=== PATIENT | female | born 1960 | race Caucasian/White ===

== ENCOUNTER → 2019-09-16 14:46 | Outpatient (POV) | payer SELFPAY | PROVIDERS: PCP Dermatology; Visit Provider Dermatology | DX: Z00.00 Encounter for general adult medical examination without abnormal findings (principal) ==

== ENCOUNTER 2019-11-25 11:42 | Emergency (ER) | payer BC, SELFPAY ==
[2019-11-25 11:43] VITALS: BP 170/115; PULSE 88; RESP 19; TEMP 36.5; O2SAT 99; BMI 41.5
--- NOTE | 2019-11-25 11:54 | XR_ITS ---
PROCEDURE: XR KNEE RT 3V CLINICAL INDICATION: gave out Pain, knee gives out with lateral pain COMPARISON: KNEE3R KNEE-3 VIEWS-RT from 02/24/2014 KNEE3R KNEE-3 VIEWS-RT from 03/02/2014 FINDINGS: There are moderate osteoarthritic changes of the medial compartment which has progressed compared to the previous exam. There are mild osteoarthritic changes of the lateral compartment and patellofemoral joint which is also progressed. There may be a small suprapatellar effusion. Ununited ossification center noted involving the prominent tibial tuberosity versus an old injury not significantly changed. Other findings:There are some small soft tissue calcifications anteriorly in the prepatellar region IMPRESSION: Moderate osteoarthritic changes which have progressed compared to the previous exam Dictated by: Raymond Fink MD 11/25/2019 12:49 Electronically signed by Raymond Fink MD in [facility] 11/25/2019 12:49
--- NOTE | 2019-11-25 11:58 | PC.NURSE ---
Radiology notified of xrays.
--- NOTE | 2019-11-25 12:29 | PC.NURSE ---
pt to xray
--- NOTE | 2019-11-25 12:55 | PC.NURSE ---
ER MD gave verbal orders for medications on pt.
--- NOTE | 2019-11-25 13:03 | HMH.EDGENADL ---
ED Disposition Clinical Impression: Left lateral knee pain Disposition: Home, Self-Care Condition on Discharge: Good Instructions: DI for Acute Pain -- Adult Additional Instructions: Please ice your knee do not ambulate until you are pain-free and do hamstring stretching. If fail to improve please follow-up with your primary care for possible MRI due to meniscal tear Prescriptions: Nabumetone 750 mg PO BID 10 Days #20 tab Transmission Status: Sent to [facility] Referrals: Joon Sandy [Primary Care Provider] - - Critical Care Critical Care Time: No Attestation: On 11/25/19, the high probability of a clinically significant, sudden or life threatening deterioration of the following system(s) required my full and direct attention, intervention and personal management. The time I documented below is in addition to time spent performing reported procedures but includes the following listed in this critical care notation. Medical Decision Making - Medical Records Medical records reviewed: Yes: I reviewed the patient's medical records. - Mesfin Inquiry Pt receiving controlled substance: No Vital Signs: 11/25/19 11:43 Temperature 97.7 F Temperature Source Oral Pulse Rate [Radial] 88 Respiratory Rate 19 Blood Pressure [Right Arm] 170/115 H Blood Pressure Mean [Right Arm] 133 Blood Pressure Source [Right Arm] Automatic Cuff Blood Pressure Position [Right Arm] Sitting 02 Sat by Pulse Oximetry 99 Oxygen Delivery Method Room Air - Lab Data Lab results reviewed: Yes: I reviewed the patient's lab results. Orders (Tests/Meds): ED MEDICATIONS Discontinued Medications Generic Name Dose Route Start Last Admin Trade Name Freq PRN Reason Stop Dose Admin Ketorolac Tromethamine 60 mg 11/25/19 12:55 Toradol 60mg/2ml Vial IM 11/25/19 12:56 ONCE ONE Methylprednisolone Sodium Succinate 125 mg 11/25/19 12:55 Solu-Medrol 125mg/2ml Vial IM 11/25/19 12:56 ONCE ONE Morphine Sulfate 4 mg 11/25/19 12:57 Morphine 4mg/Ml Syringe IM 11/25/19 12:58 ONCE ONE - Radiology Data #1 Image(s): Knee Preliminary Findings: Normal/NAD General Adult HPI - General Chief complaint: PAIN Stated complaint: knee went out Time Seen by Provider: 11/25/19 13:00 Mode of Arrival: Wheelchair Source of Information: Patient Limitations: No Limitations Description of Symptoms (Recalled from ER Triage Doc. by RN): States her right knee just gave out. - History of Present Illness Onset (ago): hour(s) Location: right, lower extremity Radiation: non-radiation Severity: moderate Severity scale (1-10): 5 Quality: burning, aching Consistency: constant Relieving factors: immobilization Exacerbating factors: movement. negative: none Associated symptoms: denies other symptoms - Related Data Previous Rx's Medication Instructions Recorded Nabumetone 750 mg PO BID 10 Days #20 tab 11/25/19 Allergies Allergy/AdvReac Type Severity Reaction Status Date / Time NO KNOWN ALLERGIES Allergy Uncoded 07/17/17 14:32 [facility] History - Hepatitis A Screen Drug use history?: No High risk sexual behaviors?: No History of sexually transmitted infection?: No Currently employed?: No Childcare worker?: No Do you have indoor plumbing?: Yes Do you have electricity?: Yes Attestation statement:: This patient has been screened for Hepatitis A risk factors. I have reviewed the patient's past medical history: Yes - Social History Educational Level: Completed High School Smoking Status: Former smoker Tobacco Type: cigarettes # Packs/Day (cigarettes): 1 Alcohol Intake: never Occupational Status: employed Housing: house Household Members: spouse, children ROS Obtained: Yes All systems reviewed & no additional complaints - Constitutional Constitutional: Reports system reviewed and no additional complaints, except as docu - Eyes Eyes: Reports system reviewed and no additional com
[2019-11-25 13:27] VITALS: BP 199/101; PULSE 88; RESP 19; TEMP 36.5; O2SAT 99
[2019-11-25 13:31] VITALS: BP 198/101; PULSE 75; RESP 18; TEMP 36.8; O2SAT 96
--- NOTE | 2019-11-25 13:32 | PC.NURSE ---
pt reported she did not need crutches she had a set at home
== END 2019-11-25 13:32 | disposition home or self-care (01) ==
PROVIDERS: Emergency Provider Family Medicine; PCP Internal Medicine
DX: M25.562 Pain in left knee (principal); Z87.891 Personal history of nicotine dependence
CPT/HCPCS: 73562; 96372; 99282

== ENCOUNTER → 2021-07-08 13:04 | Outpatient (CLI) | payer BC, SELFPAY ==
[2021-07-08 15:26] LABS: Alanine Aminotransferase 18 U/L (12-78); Albumin/Globulin Ratio 1.3 (1.1-1.8); Alkaline Phosphatase 98 U/L (38-126); Anion Gap 7.8 mEq/L (5-15); Aspartate Amino Transferase 32 U/L (14-36); Bilirubin,Total 0.5 mg/dl (0.2-1.3); Blood Urea Nitrogen 18 mg/dl (7-17); Calcium 9.1 mg/dl (8.4-10.2); Carbon Dioxide 29 mmol/L (22.0-30.0); Chloride 103 mmol/L (98-107); Chol/HDL Ratio 2.8 (1-3.5); Cholesterol 149 mg/dl (140-200); Estimated Glomerular Filt Rate 72 ml/min (>60); GFR (African American) 88 ML/MIN (>60); Glucose 94 mg/dl (74-100); HDL Cholesterol 53 mg/dl (40-60); Potassium 4.8 mmoL/L (3.5-5.1); Sodium 135 mmol/L (136-145); Triglycerides 133 mg/dl (30-150); VLDL Cholesterol 27 mg/dL (0-40)
[2021-07-08 15:37] LABS: Direct LDL Cholesterol 79.65 mg/dL (100-129)
== END ==
PROVIDERS: Visit Provider Internal Medicine
DX: R55 Syncope and collapse (principal); E78.5 Hyperlipidemia, unspecified; E66.01 Morbid (severe) obesity due to excess calories; N39.0 Urinary tract infection, site not specified
CPT/HCPCS: 80053; 80061; 87086

== ENCOUNTER 2021-08-28 13:28 | Emergency (ER) | payer BC, SELFPAY ==
[2021-08-28 13:41] VITALS: BP 192/88; PULSE 86; RESP 14; TEMP 37.7; O2SAT 95; BMI 43.4
--- NOTE | 2021-08-28 14:09 | HMH.EDUTC ---
[facility] Disposition Clinical Impression: Viral syndrome Disposition: Home, Self-Care Condition on Discharge: Good Instructions: DI for COVID-19 (Suspected or Confirmed ), Preventing the Spread of Coronavirus Discharge Instructions Additional Instructions: Drink plenty of fluids. Take tylenol or ibuprofen for pain or fever. Take the medications as directed. Follow up with your regular doctor. GO TO THE ER FOR ANY WORSENING SYMPTOMS Quarantine until you know the results of your covid-19 test. Notify your school or workplace of your results and follow their instructions regarding return to work/school. Prescriptions: Ondansetron [Zofran 4mg ODT] 4 mg PO Q8HP PRN #20 tab PRN Reason: Nausea Transmission Status: Received by [facility] Referrals: Joon Sandy [Primary Care Provider] - Time of Disposition: 14:29 Medical Decision Making - Medical Records Medical records reviewed: No: I reviewed the patient's medical records. - Mesfin Inquiry Pt receiving controlled substance: No Vital Signs: 08/28/21 13:41 08/28/21 14:40 Temperature 99.9 F H 99.9 F H Temperature Source Oral Pulse Rate 86 Pulse Rate [Left] 86 Respiratory Rate 14 14 Blood Pressure 192/88 H Blood Pressure [Right Arm] 192/88 H Blood Pressure Mean [Right Arm] 122 02 Sat by Pulse Oximetry 95 Orders (Tests/Meds): ORDERS Category Date Time Status Covid-19 Nasal PCR ([facility]) Routine Lab 08/28/21 13:42 Received [facility] HPI - General Stated complaint: covid test/symptoms Time Seen by Provider: 08/28/21 14:09 Mode of Arrival: Ambulatory Source of Information: Patient Limitations: No Limitations Description of Symptoms (Recalled from Triage Doc. by RN): pt c/o a fever and OTERO since this am. pt wants a covid test. HEENT Symptoms (Recalled from RN notes): Yes (OTERO) Resp Symptoms (Recalled from RN notes): No Skin Symptoms (Recalled from RN notes): No MS Symptoms (Recalled from RN notes): No Functional Status (Recalled from RN notes): wnl - History of Present Illness Provider Complaint: She states that she has felt bad since this morning and she would like to be tested for covid-19. - Related Data Previous Rx's Medication Instructions Recorded Nabumetone 750 mg PO BID 10 Days #20 tab 11/25/19 Ondansetron [Zofran 4mg ODT] 4 mg PO Q8HP PRN #20 tab 08/28/21 Allergies Allergy/AdvReac Type Severity Reaction Status Date / Time NO KNOWN ALLERGIES Allergy Uncoded 07/17/17 14:32 - Worker's Comp Is this a Worker's Comp case?: No H History - Hepatitis A Screen Drug use history?: No High risk sexual behaviors?: No History of sexually transmitted infection?: No Currently employed?: No Childcare worker?: No Do you have indoor plumbing?: Yes Do you have electricity?: Yes Attestation statement:: This patient has been screened for Hepatitis A risk factors. I have reviewed the patient's past medical history: Yes - Social History Smoking Status: Former smoker Tobacco Type: cigarettes # Packs/Day (cigarettes): 1 Alcohol Intake: never Occupational Status: employed Housing: house Household Members: spouse, children ROS Obtained: Yes All systems reviewed & no additional complaints - Constitutional Constitutional: Reports as per HPI - Eyes Eyes: Denies eye discharge - ENT Ears, Nose, Mouth, and Throat: Reports as per HPI - Cardiovascular Cardiovascular: Denies chest pain - Respiratory Respiratory: Denies chest congestion, Reports cough, Denies dyspnea, Denies stridor, Denies wheezing Physical Exam - General General appearance: alert, in no apparent distress - Head Head exam: atraumatic, normocephalic, normal inspection - Eye Eye exam: Present: normal appearance, PERRL, EOMI - ENT ENT exam: Present: normal exam, normal oropharynx, mucous membranes moist, TM's normal bilaterally, normal external ear exam - Neck Neck exam: Present: normal inspection, ful
[2021-08-28 14:40] VITALS: BP 192/88; PULSE 86; RESP 14; TEMP 37.7
== END 2021-08-28 14:40 | disposition home or self-care (01) ==
PROVIDERS: Emergency Provider Nurse Practitioner Family; PCP Internal Medicine
DX: U07.1 COVID-19 (principal); B34.9 Viral infection, unspecified; Z87.891 Personal history of nicotine dependence
CPT/HCPCS: 99202; C9803; G0463; U0003; U0005

== ENCOUNTER → 2022-01-06 13:04 | Outpatient (CLI) | payer BC, SELFPAY ==
[2022-01-06 16:49] LABS: Alanine Aminotransferase 23 U/L (12-78); Albumin Level 3.9 g/dl (3.5-5.0); Albumin/Globulin Ratio 1.3 (1.1-1.8); Alkaline Phosphatase 119 U/L (38-126); Anion Gap 13.9 mEq/L (5-15); Aspartate Amino Transferase 31 U/L (14-36); Bilirubin,Total 0.2 mg/dl (0.2-1.3); Blood Urea Nitrogen 21 mg/dl (7-17); Calcium 9.1 mg/dl (8.4-10.2); Carbon Dioxide 30 mmol/L (22.0-30.0); Chloride 100 mmol/L (98-107); Chol/HDL Ratio 3.5 (1-3.5); Cholesterol 183 mg/dl (140-200); Estimated Glomerular Filt Rate 63 ml/min (>60); GFR (African American) 77 ML/MIN (>60); Glucose 100 mg/dl (74-100); HDL Cholesterol 53 mg/dl (40-60); Potassium 4.9 mmoL/L (3.5-5.1); Sodium 139 mmol/L (136-145); Total Protein,Serum 6.9 g/dl (6.3-8.2); Triglycerides 167 mg/dl (30-150); VLDL Cholesterol 33 mg/dL (0-40)
[2022-01-06 17:01] LABS: Direct LDL Cholesterol 95.14 mg/dL (100-129)
== END ==
PROVIDERS: PCP Internal Medicine; Visit Provider Internal Medicine
DX: R03.0 Elevated blood-pressure reading, without diagnosis of hypertension (principal); E78.5 Hyperlipidemia, unspecified; E66.1 Drug-induced obesity
CPT/HCPCS: 80053; 80061

== ENCOUNTER → 2022-06-06 14:22 | Outpatient (CLI) | payer BC, SELFPAY ==
--- NOTE | 2022-06-06 14:25 | MM_ITS ---
PROCEDURE INFORMATION: Exam: Bilateral Screening 3D Mammography Exam date and time: 06/06/2022 2:39 PM Age: 62 years old Clinical indication: Screening examination. No family history of breast cancer. TECHNIQUE: Imaging protocol: Bilateral Screening tomosynthesis and 2D mammography including computer-aided detection (CAD) when performed. COMPARISON: [facility] DIGITAL SCREEN BILATERAL 01/01/2019 9:57 AM - only the right CC and right MLO are provided. [facility] DIGITAL SCREEN BILATERAL 04/20/2021 2:18 PM - these images are corrupted and not used for comparison. If prior mammograms are provided, I am happy to add an addendum. FINDINGS: MAMMOGRAPHY: Breast composition: The breasts are almost entirely fatty. Mass: None. Architectural distortion: None. Calcifications: No suspicious calcifications. Asymmetric density: None. Skin thickening: None. Axillary adenopathy: None. IMPRESSION: Note comments regarding prior mammograms No mammographic evidence of malignancy. Annual screening is recommended unless otherwise clinically indicated. ASSESSMENT: BI-RADS Category 1: Negative
== END ==
PROVIDERS: PCP Internal Medicine; Visit Provider Internal Medicine
DX: Z12.31 Encounter for screening mammogram for malignant neoplasm of breast (principal)
CPT/HCPCS: 77063; 77067

== ENCOUNTER → 2022-07-07 14:08 | Outpatient (CLI) | payer BC, SELFPAY ==
[2022-07-07 15:01] LABS: Basophils # 0.1 K/mm3 (0-0.2); Basophils % 0.6 % (0.1-2.0); Eosinophils # 0.2 K/mm3 (0.0-0.4); Eosinophils % 1.5 % (0.1-12.0); Hematocrit 44.1 % (37.0-47.0); Hemoglobin 14.2 g/dL (12.2-16.2); Lymphocytes # 2.8 K/mm3 (0.7-4.5); Lymphocytes % 23.3 % (10-50); Mean Corpuscular HGB Conc 32.3 g/dL (31.8-35.4); Mean Corpuscular Hemoglobin 29.7 pg (27.0-31.2); Mean Platelet Volume 10.2 fl (7.4-10.4); Monocytes # 0.7 K/mm3 (0.1-1.0); Monocytes % 6.1 % (1.7-9.3); Neutrophils # 8.3 K/mm3 (1.8-7.8); Neutrophils % 68.5 % (37.0-80.0); Platelet Count 501 K/mm3 (142-424); Red Blood Count 4.79 M/mm3 (4.20-5.40); Red Cell Distribution Width 13.1 % (11.5-17.5); White Blood Count 12.1 K/mm3 (4.8-10.8)
[2022-07-07 15:28] LABS: Alanine Aminotransferase 21 U/L (12-78); Albumin Level 4.2 g/dl (3.5-5.0); Albumin/Globulin Ratio 1.4 (1.1-1.8); Alkaline Phosphatase 128 U/L (38-126); Anion Gap 15.1 mEq/L (5-15); Aspartate Amino Transferase 27 U/L (14-36); Bilirubin,Total 0.3 mg/dl (0.2-1.3); Blood Urea Nitrogen 22 mg/dl (7-17); Calcium 9.6 mg/dl (8.4-10.2); Carbon Dioxide 28 mmol/L (22.0-30.0); Chloride 99 mmol/L (98-107); Chol/HDL Ratio 3.2 (1-3.5); Cholesterol 176 mg/dl (140-200); Estimated Glomerular Filt Rate 56 ml/min (>60); GFR (African American) 68 ML/MIN (>60); Globulin 3.1 g/dL (1.3-3.2); Glucose 97 mg/dl (74-100); HDL Cholesterol 55 mg/dl (40-60); Magnesium 1.8 mg/dl (1.6-2.3); Potassium 5.1 mmoL/L (3.5-5.1); Sodium 137 mmol/L (136-145); Total Protein,Serum 7.3 g/dl (6.3-8.2); Triglycerides 127 mg/dl (30-150); VLDL Cholesterol 25 mg/dL (0-40)
[2022-07-07 15:45] LABS: Direct LDL Cholesterol 92.82 mg/dL (100-129)
== END ==
PROVIDERS: PCP Internal Medicine; Visit Provider Internal Medicine
DX: E78.5 Hyperlipidemia, unspecified (principal); R25.2 Cramp and spasm; Z86.2 Personal history of diseases of the blood and blood-forming organs and certain disorders involving the immune mechanism
CPT/HCPCS: 80053; 80061; 83735; 85025

== ENCOUNTER → 2023-01-05 13:25 | Outpatient (CLI) | payer BC, SELFPAY ==
[2023-01-05 16:47] LABS: Alanine Aminotransferase 24 U/L (12-78); Albumin Level 4.1 g/dl (3.5-5.0); Albumin/Globulin Ratio 1.3 (1.1-1.8); Alkaline Phosphatase 100 U/L (38-126); Anion Gap 16.6 mEq/L (5-15); Aspartate Amino Transferase 36 U/L (14-36); Bilirubin,Total 0.5 mg/dl (0.2-1.3); Blood Urea Nitrogen 19 mg/dl (7-17); Carbon Dioxide 33 mmol/L (22.0-30.0); Chloride 97 mmol/L (98-107); Chol/HDL Ratio 3.7 (1-3.5); Cholesterol 209 mg/dl (140-200); Estimated Glomerular Filt Rate 63 ml/min (>60); GFR (African American) 76 ML/MIN (>60); Globulin 3.2 g/dL (1.3-3.2); Glucose 94 mg/dl (74-100); HDL Cholesterol 56 mg/dl (40-60); Potassium 5.6 mmoL/L (3.5-5.1); Sodium 141 mmol/L (136-145); Total Protein,Serum 7.3 g/dl (6.3-8.2); Triglycerides 150 mg/dl (30-150); VLDL Cholesterol 30 mg/dL (0-40)
[2023-01-05 16:58] LABS: Direct LDL Cholesterol 118.29 mg/dL (100-129)
== END ==
PROVIDERS: PCP Internal Medicine; Visit Provider Internal Medicine
DX: E78.5 Hyperlipidemia, unspecified (principal); G47.62 Sleep related leg cramps; R03.0 Elevated blood-pressure reading, without diagnosis of hypertension; L30.9 Dermatitis, unspecified; E66.01 Morbid (severe) obesity due to excess calories
CPT/HCPCS: 80053; 80061

== ENCOUNTER → 2023-04-13 16:28 | Outpatient (CLI) | payer BC, SELFPAY ==
[2023-04-13 16:34] LABS: Microscopic, Urine URINE MICROSCOPIC (MICROSCOPIC)
--- NOTE | 2023-04-13 16:47 | CT_ITS ---
PROCEDURE INFORMATION: Exam: CT Abdomen And Pelvis Without Contrast Exam date and time: 04/13/2023 4:47 PM Age: 63 years old Clinical indication: Abdominal pain; Flank; Left lower quadrant (llq); Additional info: Appendicitis, pancreatitis, diverticulitis TECHNIQUE: Imaging protocol: Computed tomography of the abdomen and pelvis without contrast. Radiation optimization: All CT scans at this facility use at least one of these dose optimization techniques: automated exposure control; mA and/or kV adjustment per patient size (includes targeted exams where dose is matched to clinical indication); or iterative reconstruction. REPORTING DATA: Count of CT and Cardiac NM exams in prior 12 months: This patient has received 0 known CTs and 0 known cardiac nuclear medicine studies in the 12 months prior to the current study. COMPARISON: No relevant prior studies available. FINDINGS: Diaphragm: Small hiatal hernia. Liver: Scattered punctate calcified granulomas throughout the liver. No evidence of significant steatosis. Prominent craniocaudal extension of the caudate lobe (Yahaira's lobe). Gallbladder and bile ducts: Normal. No calcified stones. No ductal dilation. Pancreas: Normal. No ductal dilation. Spleen: Calcified granulomas throughout the spleen. No splenomegaly. Adrenal glands: Normal. No mass. Kidneys and ureters: Mild malrotation of both kidneys with the renal pelves directed anteriorly. No focal lesions, calculi, or hydronephrosis. Stomach and bowel: Extensive submucosal low-density throughout the descending and transverse colon. Diffuse colonic diverticulosis. No dilated bowel loops. The duodenal-jejunal junction is right of midline consistent with mild malrotation. Mild fat stranding and engorgement of the vasa recta adjacent to the entire colon. No free fluid or free air. Appendix: No evidence of appendicitis. Intraperitoneal space: See Stomach and bowel finding. Vasculature: Mild aortoiliac atherosclerotic disease without aneurysm. Lymph nodes: Unremarkable. No enlarged lymph nodes. Urinary bladder: Unremarkable as visualized. Reproductive: Status post hysterectomy. Bones/joints: Mild lumbar spine dextroscoliosis. Moderate lumbar spine facet arthropathy with grade 1 anterolisthesis of L4 over L5. Mild degenerative joint disease of the bilateral hips. Soft tissues: Unremarkable. IMPRESSION: 1. Findings consistent with mild pancolitis with leading differential including Crohn's disease or ulcerative colitis. Less likely consider infectious colitis. 2. Calcified granulomas throughout the liver and spleen.
[2023-04-13 16:50] LABS: Appearance,Urine CLEAR (Clear); Bilirubin,Urine Negative (Negative); Blood, Urine 2+ (Negative); Color,Urine YELLOW (Yellow); Glucose,Urine (UA) Negative (Negative); Ketones,Urine Negative (Negative); Leukocyte Esterase,Urine 2+ (Negative); Nitrate,Urine Negative (Negative); Protein,Urine TRACE (Negative); Specific Gravity, Urine >= 1.030 (1.005-1.030); Urobilinogen,Urine 0.2 EU/dl (0.2)
[2023-04-13 16:51] LABS: Basophils # 0.1 K/mm3 (0-0.2); Basophils % 0.3 % (0.1-2.0); Eosinophils # 0.2 K/mm3 (0.0-0.4); Eosinophils % 0.9 % (0.1-12.0); Hematocrit 47.6 % (37.0-47.0); Lymphocytes # 1.7 K/mm3 (0.7-4.5); Lymphocytes % 8.9 % (10-50); Mean Corpuscular HGB Conc 31.6 g/dL (31.8-35.4); Mean Corpuscular Hemoglobin 29.8 pg (27.0-31.2); Mean Corpuscular Volume 94.2 fl (81-99); Mean Platelet Volume 7.8 fl (7.4-10.4); Monocytes # 0.6 K/mm3 (0.1-1.0); Monocytes % 2.9 % (1.7-9.3); Neutrophils # 16.7 K/mm3 (1.8-7.8); Neutrophils % 86.9 % (37.0-80.0); Platelet Count 445 K/mm3 (142-424); Red Blood Count 5.06 M/mm3 (4.20-5.40); Red Cell Distribution Width 13.2 % (11.5-17.5); White Blood Count 19.2 K/mm3 (4.8-10.8)
[2023-04-13 16:56] LABS: MANUAL DIFFERENTIAL MANUAL DIFFERENTIAL (MANUAL DIFF)
[2023-04-13 17:13] LABS: Lymphocytes % 9 % (10-50); Monocytes % 2 % (2-9); Neutrophils % 89 % (42-76); Platelet Estimate Normal; RBC Morphology Normal; Total Cells Counted 100
[2023-04-13 17:18] LABS: Bacteria,Urine 1+ /lpf
== END ==
LOC: RAD 16:30
PROVIDERS: PCP Internal Medicine; Visit Provider Internal Medicine
DX: R10.9 Unspecified abdominal pain (principal)
CPT/HCPCS: 36415; 74176; 81001; 85007; 85025; 87086

== ENCOUNTER → 2023-07-06 12:21 | Outpatient (CLI) | payer BC, SELFPAY ==
[2023-07-06 13:20] LABS: Basophils % 0.3 % (0.1-2.0); Eosinophils # 0.1 K/mm3 (0.0-0.4); Eosinophils % 1.3 % (0.1-12.0); Hematocrit 45.1 % (37.0-47.0); Lymphocytes # 2.8 K/mm3 (0.7-4.5); Lymphocytes % 27.6 % (10-50); Mean Corpuscular HGB Conc 33.3 g/dL (31.8-35.4); Mean Corpuscular Hemoglobin 31.1 pg (27.0-31.2); Mean Corpuscular Volume 93.4 fl (81-99); Mean Platelet Volume 8.5 fl (7.4-10.4); Monocytes # 0.6 K/mm3 (0.1-1.0); Monocytes % 5.5 % (1.7-9.3); Neutrophils # 6.5 K/mm3 (1.8-7.8); Neutrophils % 65.3 % (37.0-80.0); Platelet Count 464 K/mm3 (142-424); Red Blood Count 4.83 M/mm3 (4.20-5.40); Red Cell Distribution Width 13.3 % (11.5-17.5)
[2023-07-06 13:46] LABS: Alanine Aminotransferase 27 U/L (12-78); Albumin Level 4.1 g/dl (3.5-5.0); Albumin/Globulin Ratio 1.3 (1.1-1.8); Alkaline Phosphatase 93 U/L (38-126); Anion Gap 9.9 mEq/L (5-15); Aspartate Amino Transferase 35 U/L (14-36); Bilirubin,Total 0.4 mg/dl (0.2-1.3); Blood Urea Nitrogen 13 mg/dl (7-17); Calcium 9.1 mg/dl (8.4-10.2); Carbon Dioxide 31 mmol/L (22.0-30.0); Chloride 100 mmol/L (98-107); Chol/HDL Ratio 3.2 (1-3.5); Cholesterol 199 mg/dl (140-200); Estimated Glomerular Filt Rate 63 ml/min (>60); GFR (African American) 76 ML/MIN (>60); Globulin 3.2 g/dL (1.3-3.2); Glucose 99 mg/dl (74-100); HDL Cholesterol 62 mg/dl (40-60); Potassium 4.9 mmoL/L (3.5-5.1); Sodium 136 mmol/L (136-145); Total Protein,Serum 7.3 g/dl (6.3-8.2); Triglycerides 182 mg/dl (30-150); VLDL Cholesterol 36 mg/dL (0-40)
[2023-07-06 13:57] LABS: Direct LDL Cholesterol 107.24 mg/dL (100-129)
== END ==
LOC: LAB.DROPOF 12:22
PROVIDERS: PCP Internal Medicine; Visit Provider Internal Medicine
DX: E78.5 Hyperlipidemia, unspecified (principal); Z86.2 Personal history of diseases of the blood and blood-forming organs and certain disorders involving the immune mechanism; G47.62 Sleep related leg cramps; L30.9 Dermatitis, unspecified
CPT/HCPCS: 80053; 80061; 85025

== ENCOUNTER 2024-06-25 13:34 | Outpatient (CLI) | payer MEDICARE, SELFPAY ==
--- NOTE | 2024-06-25 13:44 | XR_ITS ---
FINAL REPORT CLINICAL HISTORY: Diffuse abdominal pain COMPARISON: None FINDINGS: A PA view of the chest was obtained. The cardiac and mediastinal silhouettes are within normal limits. The lungs are clear. There is no free air beneath the diaphragm. Upright and supine views of the abdomen reveal no free air. There is a nonspecific bowel gas pattern. There is no evidence of small bowel obstruction. There is a moderate amount of retained stool. There are no pathologic calcifications. No acute osseous abnormalities identified. IMPRESSION: Moderate stool, otherwise nonspecific bowel gas pattern. Reviewed, Interpreted and Dictated by Micaela Mendoza MD Transcribed by Reyna Law Authenticated and [facility]
[2024-06-25 14:02] LABS: Chloride 102 mmol/L (98-107)
[2024-06-25 14:03] LABS: Potassium 4.5 mmoL/L (3.5-5.1); Sodium 137 mmol/L (136-145)
[2024-06-25 14:05] LABS: Alanine Aminotransferase 32 U/L (12-78); Albumin/Globulin Ratio 1.3 (1.1-1.8); Alkaline Phosphatase 101 U/L (38-126); Amylase 48 U/L (30-110); Anion Gap 8.5 mEq/L (5-15); Aspartate Amino Transferase 37 U/L (14-36); Bilirubin,Total 0.9 mg/dl (0.2-1.3); Blood Urea Nitrogen 11 mg/dl (7-17); Carbon Dioxide 31 mmol/L (22.0-30.0); Estimated Glomerular Filt Rate 55 ml/min (>60); GFR (African American) 67 ML/MIN (>60); Globulin 3.2 g/dL (1.3-3.2); Glucose 112 mg/dl (74-100); Total Protein,Serum 7.2 g/dl (6.3-8.2)
[2024-06-25 14:06] LABS: Basophils # 0.1 K/mm3 (0-0.2); Basophils % 0.5 % (0.1-2.0); Calcium 9.3 mg/dl (8.4-10.2); Eosinophils # 0.1 K/mm3 (0.0-0.4); Eosinophils % 0.3 % (0.1-12.0); Hematocrit 44.3 % (37.0-47.0); Hemoglobin 15.1 g/dL (12.2-16.2); Lymphocytes # 2.5 K/mm3 (0.7-4.5); Lymphocytes % 13.9 % (10-50); Mean Corpuscular HGB Conc 34.1 g/dL (31.8-35.4); Mean Corpuscular Hemoglobin 31.1 pg (27.0-31.2); Mean Corpuscular Volume 91.4 fl (81-99); Mean Platelet Volume 7.4 fl (7.4-10.4); Monocytes % 5.7 % (1.7-9.3); Neutrophils # 14.1 K/mm3 (1.8-7.8); Neutrophils % 79.7 % (37.0-80.0); Platelet Count 458 K/mm3 (142-424); Red Blood Count 4.85 M/mm3 (4.20-5.40); Red Cell Distribution Width 13.4 % (11.5-17.5); White Blood Count 17.7 K/mm3 (4.8-10.8)
[2024-06-25 14:19] LABS: MANUAL DIFFERENTIAL MANUAL DIFFERENTIAL (MANUAL DIFF)
[2024-06-25 14:52] LABS: Lymphocytes % 14 % (10-50); Monocytes % 8 % (2-9); Neutrophils % 78 % (42-76); Platelet Estimate Slight Increase; RBC Morphology Normal; Total Cells Counted 100
--- NOTE | 2024-06-25 15:03 | CT_ITS ---
PROCEDURE INFORMATION: Exam: CT Abdomen And Pelvis Without Contrast Exam date and time: 06/25/2024 3:03 PM Age: 64 years old Clinical indication: Fever; Additional info: Fever and abdominal pain TECHNIQUE: Imaging protocol: Computed tomography of the abdomen and pelvis without contrast. Radiation optimization: All CT scans at this facility use at least one of these dose optimization techniques: automated exposure control; mA and/or kV adjustment per patient size (includes targeted exams where dose is matched to clinical indication); or iterative reconstruction. COMPARISON: CT ABDOMEN PELVIS WO CON 04/13/2023 4:47 PM FINDINGS: Diaphragm: Small hiatal hernia. Liver: Liver is enlarged measuring 19 cm. Slightly nodular liver contour, concerning for early hepatocellular disease. Correlation with pertinent labs is recommended. Scattered calcified liver granulomas are benign. Gallbladder and biliary ducts: Normal. No calcified stones. No ductal dilation. Pancreas: Normal. No ductal dilation. Spleen: The spleen demonstrates punctate calcifications, consistent with remote granulomatous organism exposure. Adrenal glands: Normal. No mass. Kidneys and ureters: Normal. No hydronephrosis. Stomach and bowel: Diffuse colonic diverticulosis. Mild constipation. There is submucosal fat deposition noted throughout the colon, a finding which has been previously described as the sequela of prior infectious/inflammatory process or increased body fat content. No bowel inflammation or obstruction. Appendix: 1.5 cm distended appendix with severe surrounding inflammation, trace free fluid, and contained extraluminal air foci just distal to the appendiceal tip. A partially calcified appendicolith measuring 7 mm is suggested at the appendiceal tip. No periappendiceal fluid collections. Intraperitoneal space: No free fluid, fluid collections, or pneumoperitoneum. Vasculature: Mild atherosclerosis. Lymph nodes: Prominent periportal lymph nodes measuring up to 2 cm. Urinary bladder: Bladder is decompressed and difficult to evaluate. Reproductive: There has been a hysterectomy. Bones/joints: Moderate multilevel degenerative changes of the spine. Soft tissues: No acute body wall soft tissue findings. Other findings: No aneurysms. IMPRESSION: 1. Severe appendicitis complicated with contained microperforation. No periappendiceal abscess. 2. Prominent periportal lymph nodes measuring up to 2 cm. Most probably reactive from suspected underlying hepatocellular disease. COMMENTS: THIS REPORT CONTAINS FINDINGS THAT MAY BE CRITICAL TO PATIENT CARE. The findings were verbally communicated via telephone conference with RUDDY RAGSDALE at 3:41 PM EST on 06/25/2024. The findings were acknowledged and understood.
== END 2024-06-25 23:59 | disposition home or self-care (01) ==
PROVIDERS: PCP Internal Medicine; Visit Provider Internal Medicine
DX: R10.9 Unspecified abdominal pain (principal)
CPT/HCPCS: 74021; 74176; 80053; 82150; 85007; 85025

== ENCOUNTER 2024-06-25 17:17 | Inpatient (IN) | payer MEDICARE, SELFPAY ==
[2024-06-25] VITALS (17 sets, daily range): BP systolic 109–193; BP diastolic 63–86; PULSE 82–115; RESP 14–18; TEMP 36.2–43; O2SAT 90–97; BMI 44.7
--- NOTE | 2024-06-25 16:22 | EXP.ANES.CKL ---
[facility] Disclaimer: The information contained in this section may have been updated after the patient was seen, as this information can be updated by other users. Medical History (Updated 06/25/24 @ 16:16 by Zofia Moreira RN) Hyperlipidemia Surgical History (Updated 06/25/24 @ 16:17 by Zofia Moreira RN) H/O: hysterectomy Social History (Updated 06/25/24 @ 16:18 by Zofia Moreira RN) Smoking Status: Current every day smoker tobacco type: cigarettes packs per day: 1 second hand exposure: Yes alcohol intake: never substance use type: denies use current occupational status: employed household members: spouse and children housing: house [facility] Anesthesia Checklist Patient Identification Patient Identification: Arm Band Structural Data Admitted From: Home Planned Operative Procedure/s: Laparoscopic Appendectomy Consent for Planned Operative Procedure(s) Verified: Yes Verified Documents: Surgical Consent and History and Physical NPO Status Verified Time NPO: 10:00 (oatmeal) Additional verifications Anesthesia Reactions: No Airway Assessment Mallampati Score:: Class II C-Spine Mobility Assessed: Yes TMJ Mobility Assessed: Yes Dentition: Dentures-good fit (upper dentures removed) Neurological Assessment Level of Consciousness: Awake, Alert and Appropriate Anesthesia Plan Anesthesia Risk discussed: Yes Anesthesia Plan: Verified ASA Class: II (E) Anesthesia Type: General
[2024-06-25] MEDS: RINGERS SOLUTION,LACTATED 3,000 ML 999 ML IR (16:26)
[2024-06-25] MEDS: LIDOCAINE 1% 30ML PF VIAL 30 ML (16:26)
[2024-06-25] MEDS: METRONIDAZ/SOD CHL 500 MG/100 ML PIGGYBACK 100 MG IV (16:40)
[2024-06-25] MEDS: CEFTRIAXONE SODIUM 2 GM in 0.9 % SODIUM CHLORIDE 100 ML IV (16:40)
--- NOTE | 2024-06-25 17:12 | SUR.OPER ---
called supervisor feed house to inform of need of inpatient bed
--- NOTE | 2024-06-25 18:24 | P.HP_ITS ---
HPI HPI HPI: This is a 64-year-old female who presented to her primary care provider earlier today with complaints of a 2+ day history of increasing abdominal pain. Evaluation included a CT scan that revealed changes consistent with perforated appendicitis. Please see HPI forwarded from outpatient primary care evaluation below. Forwarded from outpatient primary care provider evaluation: The patient is a 64-year-old female with past medical history of arthritis of the knees, hypertension, and hyperlipidemia who presents for evaluation of low- grade fever and abdominal pain. The pain started on the evening of 06/23/2024 with low-grade fevers up to 100.5, and crampy upper abdominal and mid abdominal pain. The pain is rather diffuse and hard to isolate. No nausea or vomiting. No change in bowel habits. No melena or hematochezia. No hematuria. No dysu renay or frequency. No cough, sputum production, hemoptysis, or pleurisy. No URI symptoms. No jaundice. Physical exam?HEENT?no jaundice. Throat?clear. Neck?supple without JVD, adenopathy, thyromegaly. Chest?clear. Cardiovascular?regular rate and rhythm without murmurs, rubs, or gallops. Abdomen?soft, bowel sounds intact, some tenderness to palpation in both upper quadrants and mid abdomen. No masses or organomegaly. No rashes. Extremity?no cyanosis, clubbing, or edema. Musculoskeletal?no acute synovitis or effusions. Neurologic?alert. No gross focal deficits. CBC?WBC 17.7. CMP?normal liver enzymes with the exception of AST which is 37, amylase is normal. Acute abdominal series?chest is clear, no free air, nonspecific bowel gas pattern. CT scan of abdomen and pelvis?acute appendicitis with a contained microperforation. PFSH PFSH Disclaimer: The information contained in this section may have been updated after the patient was seen, as this information can be updated by other users. Medical History Arthritis Hyperlipidemia Surgical History H/O: hysterectomy Family History No significant family history Social History Smoking Status: Current every day smoker tobacco type: cigarettes packs per day: 1 second hand exposure: Yes alcohol intake: never substance use type: denies use current occupational status: employed Travel in the last 8 weeks: None household members: spouse and children housing: house Other Medical History Have you received the Flu Vaccine for this season: No Have you received the Pneumonia Vaccine: No Review of Systems Review of Systems Review of systems:: pertinent systems reviewed and negative unless documented below Constitutional Constitutional: Reports system reviewed and no additional complaints, except as documented Eyes Eyes: Reports system reviewed and no additional complaints, except as documented ENT Ears, Nose, Mouth, and Throat: Reports system reviewed and no additional complaints, except as documented *Cardiovascular Cardiovascular: Reports system reviewed and no additional complaints, except as documented *Respiratory Respiratory: Reports system reviewed and no additional complaints, except as documented *Gastrointestinal Gastrointestinal: Reports as per HPI *Genitourinary Genitourinary: Reports system reviewed and no additional complaints, except as documented *Musculoskeletal Musculoskeletal: Reports system reviewed and no additional complaints, except as documented Integumentary/Breasts Skin/Breast: Reports system reviewed and no additional complaints, except as documented *Neurologic Neurologic: Reports system reviewed and no additional complaints, except as documented Psychiatric Psychiatric: Reports system reviewed and no additional complaints, except as documented Endocrine Endocrine: Reports system reviewed and no additional complaints, except as documented Hematologic/Lymphatic Hematologic/Lymphatic: Reports system reviewed and no additional complaints, except as documented Allergic/Immunologic Allergic/Immunologic: Reports system reviewed and no additional complaints, except as documented Meds Home Medications and Allergies Home Medications ?Medication ?Instructions ?Recorded ?Confirmed ?Type atorvastatin 20 mg tablet 20 mg PO DAILY 06/25/24 06/25/24 History New Prescriptions to Start Prescriptions: Allergies Allergy/AdvReac Type Severity Reaction Status Date / Time No Known Allergies Allergy Unverified 06/25/24 13:07 Exam Data for Last 24 hours Vital signs and Labs for Last 24 Hours: Temp Pulse Resp BP Pulse Ox O2 Del Method 97.1 F L 115 H 18 193/86 H 93 L Room Air 06/25/24 16:21 06/25/24 16:21 06/25/24 16:21 06/25/24 16:21 06/25/24 16:21 06/25/24 16:21 I & O for Last 24 hours: Intake & Output 06/23/24 06/24/24 06/25/24 06/26/24 11:59 11:59 11:59 11:59 Weight 237 lb Constitutional Constitutional: no acute distress *Routine HEENT Exam Head: Present normocephalic Eye: Present EOMI ENT: Present mucous membranes moist *Routine Neck Exam Neck: Present full ROM Routine Chest/Breast/Axilla Exam Chest wall: Absent tenderness *Routine Respiratory Exam Respiratory: Absent respiratory distress *Routine Cardiovascular Exam Cardiovascular: Present tachycardia *Routine Abdominal Exam Abdominal: Present soft and tenderness *Routine Rectal Exam Rectal:: deferred *Routine Genitalia Exam Genitalia:: deferred *Routine Extremities Exam Extremities: Present full ROM Routine Back/Spine/Pelvis Exam Back/Spine: Present full ROM *Routine Skin Exam Skin: Absent erythema *Routine Neurological Exam Neurological: Present alert and oriented X3 Routine Psychiatric Exam Psychiatric: Present normal affect Results Results CT scan - abdomen: report reviewed and image reviewed CT scan - pelvis: report reviewed and image reviewed Assessment and Plan *Assessment and plan (1) Acute appendicitis: Status: Acute Qualifiers: Acute appendicitis type: with localized peritonitis Appendicitis gangrene presence: unspecified whether gangrene present Appendicitis perforation presence: with perforation Appendicitis abscess presence: without abscess Qualified Code(s): K35.32 - Acute appendicitis with perforation, localized peritonitis, and gangrene, without abscess Category: Medical Code(s): K35.80 - Unspecified acute appendicitis Plan Laparoscopic appendectomy planned Ongoing IV antibiotics I have discussed the risks and benefits including, but not limited to: Bleeding Infection Damage to surrounding tissue Inherent risks of sedation The patient agrees to proceed.
--- NOTE | 2024-06-25 18:28 | EXP.OP.NOTE ---
Date of procedure: 06/25/24 Pre-op Diagnosis:: Perforated appendicitis Post-op Diagnosis:: Perforated/gangrenous appendicitis Procedure performed:: Laparoscopic appendectomy Surgeon:: Yunior Barnes MD TOPOGRAPHICAL FIELD ASSISTANT:: Dallas Dias Anesthesia: GETA Estimated blood loss (mL): 15 Operative findings:: Severe regional inflammatory changes Mid/distal appendiceal necrosis Distal appendiceal perforation No obvious abscess collection noted Operative note:: After informed consent was obtained the patient was taken to the operating room and placed in the supine position. General anesthesia was induced and her abdomen was prepped and draped in a sterile fashion. After infiltration with local anesthetic an infraumbilical incision was made. A Veress needle was placed in position. The abdomen was insufflated. A 12 mm optical trocar was placed in position. Under direct visualization an additional 5 mm trocar was placed in the suprapubic position and an additional 5 mm trocar was placed in the left lower quadrant. Severe regional inflammatory changes were noted throughout the ileocecal/appendiceal region. The appendix/mesoappendix was essentially encased within surrounding small bowel and distal colon. A combination of careful blunt dissection and suction was utilized to free the appendiceal tip. Gangrenous changes with full-thickness necrosis noted. Perforation of the distal appendix was also noted. Continued dissection bluntly with occasional use of the harmonic device was utilized as the appendix was elevated. Dissection was profoundly tedious secondary to above-stated findings. Attention was then turned to the appendiceal base which was somewhat less encased but still significantly inflamed. Blunt dissection was utilized to create a window in the mesoappendix at the appendiceal base. The appendiceal base was transected utilizing the Endopath 45 stapling device. Continued elevation, blunt dissection, and dissection with harmonic miguel was utilized to free the appendix/mesoappendix from surrounding tissue. 1 small focus of sanguinous ooze along the mesoappendix was controlled with metallic clips. The appendix was placed in a retrieval bag and removed through the infraumbilical trocar site. The entire region was thoroughly irrigated. No sign of injury or active bleeding was noted. No obvious pockets of purulence were noted. Fascia at the infraumbilical trocar site was reapproximated utilizing the Neoclose device. Pneumoperitoneum was released as the remaining trocars were removed. All wounds were irrigated and skin was closed with 4-0 Monocryl in an interrupted mattress fashion to facilitate hemostasis. Dressings were applied and the patient was transferred recovery in stable condition. Condition: stable Disposition: PACU Specimens:: Appendix Complications:: No immediate
--- NOTE | 2024-06-25 18:33 | EXP.ANES.I ---
[facility] Anesthesia Record Part I Anesthesia Record I Intake, IV Amount: 1,800 Hydration: Adequate Estimated blood loss (mL): 10 Urine output (mL): 25 Blood Products used (#): none Blood Pressure: 109/68 SaO2: 94 Pulse Rate: 96 Airway Patency: Patent Respiratory Rate: 16 Temperature: 99.6 F Patient is:: Drowsy and Stable Stable to PACU at:: 18:30
[2024-06-25] MEDS: PIPERACILLIN/TAZO 4.5 GM in 0.9 % SODIUM CHLORIDE 100 ML IV (18:46)
[2024-06-25] MEDS: 0.9 % SODIUM CHLORIDE 1000ML 1,000 ML 125 ML IV (18:47)
[2024-06-25] MEDS: MORPHINE 2MG/ML SYRINGE 2 MG IV (19:09)
[2024-06-25 19:54] LABS: Microscopic,Cath URINE MICROSCOPIC (MICROSCOPIC)
[2024-06-25 19:57] LABS: Appearance,Urine/Cath CLEAR (Clear); Blood, Urine/Cath 2+ (Negative); Color,Urine/Cath YELLOW (Yellow); Glucose,Urine/Cath (UA) Negative (Negative); Ketones,Urine/Cath 1+ (Negative); Leukocyte Esterase,Cath Negative (Negative); Nitrate,Cath POSITIVE (Negative); Protein,Urine/Cath TRACE (Negative); Specific Gravity, Urine/Cath 1.025 (1.005-1.030); Urobilinogen,Cath 0.2 EU/dl (0.2)
[2024-06-25 20:02] LABS: Bilirubin,Cath Negative (Negative)
[2024-06-25 20:12] LABS: Bacteria,Urine/Cath 4+ /lpf; Mucus,Urine/Cath 1+ /lpf
[2024-06-25] MEDS: HYDROCODONE/APAP 5/325 MG TABLET 1 TAB PO (21:54)
[2024-06-25] MEDS: MORPHINE 2MG/ML SYRINGE 1 MG IV (23:55)
[2024-06-26] VITALS (8 sets, daily range): BP systolic 97–131; BP diastolic 42–68; PULSE 70–81; RESP 14–18; TEMP 36.3–37.2; O2SAT 90–94; BMI 46.0
[2024-06-26] MEDS: PIPERACILLIN/TAZO 4.5 GM in 0.9 % SODIUM CHLORIDE 100 ML IV ×5 (00:33→23:41)
[2024-06-26] MEDS: 0.9 % SODIUM CHLORIDE 1000ML 1,000 ML 125 ML IV ×2 (03:58→13:02)
[2024-06-26] MEDS: HYDROCODONE/APAP 5/325 MG TABLET 1 TAB PO (05:50)
--- NOTE | 2024-06-26 06:14 | PC.NURSE ---
Pt A&OX4 and has tolerated 1.5L O2 throughout the shift. Lung sounds clear and bowel sounds active. 3 incisions noted to abdomen with dressings C/D/I. She has complained of abdominal pain 3 times this shift and was medicated per SEP. She has ambulated to the bathroom with standby assist. No complaints at this time, call light withing reach.
[2024-06-26 06:28] LABS: Anion Gap 15.3 mEq/L (5-15); Blood Urea Nitrogen 14 mg/dl (7-17); Calcium 8.1 mg/dl (8.4-10.2); Carbon Dioxide 21 mmol/L (22.0-30.0); Chloride 104 mmol/L (98-107); Creatinine Clearance Estimated 35 mL/min (50-200); Estimated Glomerular Filt Rate 45 ml/min (>60); GFR (African American) 54 ML/MIN (>60); Glucose 206 mg/dl (74-100); Potassium 4.3 mmoL/L (3.5-5.1); Sodium 136 mmol/L (136-145)
[2024-06-26 06:37] LABS: Basophils % 0.1 % (0.1-2.0); Eosinophils # 0.1 K/mm3 (0.0-0.4); Eosinophils % 0.2 % (0.1-12.0); Lymphocytes # 1.5 K/mm3 (0.7-4.5); Lymphocytes % 5.9 % (10-50); Mean Corpuscular HGB Conc 32.9 g/dL (31.8-35.4); Mean Corpuscular Hemoglobin 30.9 pg (27.0-31.2); Mean Corpuscular Volume 93.8 fl (81-99); Mean Platelet Volume 7.5 fl (7.4-10.4); Monocytes # 0.9 K/mm3 (0.1-1.0); Monocytes % 3.6 % (1.7-9.3); Neutrophils # 23.7 K/mm3 (1.8-7.8); Neutrophils % 90.2 % (37.0-80.0); Platelet Count 395 K/mm3 (142-424); Red Blood Count 4.26 M/mm3 (4.20-5.40); Red Cell Distribution Width 13.6 % (11.5-17.5); White Blood Count 26.3 K/mm3 (4.8-10.8)
[2024-06-26 06:51] LABS: MANUAL DIFFERENTIAL MANUAL DIFFERENTIAL (MANUAL DIFF)
[2024-06-26 09:29] LABS: Lymphocytes % 7 % (10-50); Monocytes % 2 % (2-9); Neutrophils % 91 % (42-76); Platelet Estimate Normal; RBC Morphology Normal; Total Cells Counted 100
[2024-06-26 09:30] LABS: Hemoglobin 13.1 g/dL (12.2-16.2)
--- NOTE | 2024-06-26 09:57 | P.PN_ITS ---
Subjective Patient reports: no new complaints Narrative: Postoperative soreness Exam Data for Last 24 hours Vital signs and Labs for Last 24 Hours: Temp Pulse Resp BP Pulse Ox O2 Del Method O2 Flow Rate 97.4 F L 78 14 98/42 L 93 L Room Air 1.5 06/26/24 07:33 06/26/24 07:33 06/26/24 07:33 06/26/24 07:33 06/26/24 07:33 06/26/24 07:33 06/26/24 06:42 Laboratory Results - last 24 hr 06/25/24 16:45: Urine Color Yellow, Urine Appearance Clear, Urine pH 6.0, Ur Specific [place] 1.025, Urine Protein Trace, Urine Glucose (UA) Negative, Urine Ketones 1+, Urine Blood 2+, Urine Nitrate Positive A, Urine Bilirubin Negative, Urine Urobilinogen 0.2, Ur Leukocyte Esterase Negative, Urine RBC 10-20, Urine WBC 3-5, Ur Squamous Epith Cells 5-10, Urine Bacteria 4+ A 06/26/24 05:48: WBC 26.3 H* D, RBC 4.26, Hgb 13.1 D, Hct 40.0, MCV 93.8, MCH 30.9, MCHC 32.9, RDW 13.6, Plt Count 395, MPV 7.5, Neut % (Auto) 90.2 H, Lymph % (Auto) 5.9 L, [place] % (Auto) 3.6, Eos % (Auto) 0.2, Baso % (Auto) 0.1, Neut # (Auto) 23.7 H, Lymph # (Auto) 1.5, [place] # (Auto) 0.9, Eos # (Auto) 0.1, Baso # (Auto) 0.0, Total Counted 100, Neutrophils % (Manual) 91 H, Lymphocytes % (Manual) 7 L, Monocytes % (Manual) 2, Platelet Estimate Normal, RBC Morphology Normal, Sodium 136, Potassium 4.3, Chloride 104, Carbon Dioxide 21 L, Anion Gap 15.3 H, BUN 14 D, Creatinine 1.20 H, Estimated Creat Clear 35, Estimated GFR 45 L, Est GFR ( Amer) 54 L, Glucose 206 H D, Calcium 8.1 L I & O for Last 24 hours: Intake & Output 06/23/24 06/24/24 06/25/2424 11:59 11:59 11:59 11:59 Intake Total 2560 / 2560 Output Total 550 / 550 Balance 2009 Weight 244 lb Constitutional Constitutional: no acute distress *Routine Respiratory Exam Respiratory: Absent respiratory distress *Routine Cardiovascular Exam Cardiovascular: Present RRR and tachycardia *Routine Abdominal Exam Abdominal: Present soft Comments: Dressings in place. No cellulitis. Progress Note: A&P Assessment and plan (1) Gangrenous appendicitis: Status: Acute Assessment and plan: Overall, doing fairly well status post laparoscopic appendectomy Continue IV antibiotics Advance diet Increase ambulation (2) Dehydration: Status: Acute Assessment and plan: 1 L normal saline ordered (3) Leukocytosis: Status: Acute Assessment and plan: Continue IV antibiotics Repeat CBC in a.m. (4) Hypercholesterolemia: Status: Acute Assessment and plan: Continue home medication (5) Hypoxemia: Status: Acute Assessment and plan: Wean O2 as tolerated
[2024-06-26] MEDS: 0.9 % SODIUM CHLORIDE 1000ML 1,000 ML 500 ML IV (10:00)
[2024-06-26] MEDS: MORPHINE 2MG/ML SYRINGE 1 MG IV ×2 (10:00→13:38)
[2024-06-26] MEDS: IBUPROFEN 600 MG TABLET PO (13:39)
--- NOTE | 2024-06-26 16:33 | PC.NURSE ---
AOX4, WEANED FROM O2 TODAY CURRENTLY TOLERATING ROOM AIR. AMBULATED IN HALLWAY MULTIPLE TIMES THIS SHIFT. MEDICATED PER SEP FOR PAIN.
[2024-06-26] MEDS: ATORVASTATIN 20MG TABLET 20 MG PO (20:22)
[2024-06-27] VITALS: BP 115/52; PULSE 72; RESP 16; TEMP 36.7; O2SAT 93
[2024-06-27 04:00] VITALS: BP 127/67; PULSE 75; RESP 16; TEMP 36.7; O2SAT 95; BMI 46.0
[2024-06-27] MEDS: PIPERACILLIN/TAZO 4.5 GM in 0.9 % SODIUM CHLORIDE 100 ML IV (06:22)
[2024-06-27] MEDS: MORPHINE 2MG/ML SYRINGE 1 MG IV (06:22)
[2024-06-27 06:27] LABS: Basophils # 0.1 K/mm3 (0-0.2); Basophils % 0.3 % (0.1-2.0); Eosinophils # 0.1 K/mm3 (0.0-0.4); Eosinophils % 0.7 % (0.1-12.0); Hematocrit 38.4 % (37.0-47.0); Hemoglobin 12.8 g/dL (12.2-16.2); Lymphocytes # 2.4 K/mm3 (0.7-4.5); Lymphocytes % 14.5 % (10-50); Mean Corpuscular HGB Conc 33.3 g/dL (31.8-35.4); Mean Corpuscular Hemoglobin 31.6 pg (27.0-31.2); Mean Corpuscular Volume 94.7 fl (81-99); Mean Platelet Volume 7.8 fl (7.4-10.4); Monocytes # 0.8 K/mm3 (0.1-1.0); Monocytes % 4.7 % (1.7-9.3); Neutrophils # 13.5 K/mm3 (1.8-7.8); Neutrophils % 79.8 % (37.0-80.0); Platelet Count 386 K/mm3 (142-424); Red Blood Count 4.05 M/mm3 (4.20-5.40); Red Cell Distribution Width 13.6 % (11.5-17.5); White Blood Count 16.9 K/mm3 (4.8-10.8)
[2024-06-27 06:29] LABS: MANUAL DIFFERENTIAL MANUAL DIFFERENTIAL (MANUAL DIFF)
[2024-06-27 06:34] LABS: Anion Gap 9.1 mEq/L (5-15); Blood Urea Nitrogen 16 mg/dl (7-17); Carbon Dioxide 26 mmol/L (22.0-30.0); Chloride 108 mmol/L (98-107); Creatinine Clearance Estimated 35 mL/min (50-200); Estimated Glomerular Filt Rate 45 ml/min (>60); GFR (African American) 54 ML/MIN (>60); Glucose 102 mg/dl (74-100); Potassium 4.1 mmoL/L (3.5-5.1); Sodium 139 mmol/L (136-145)
--- NOTE | 2024-06-27 07:23 | EXP.SURG.PN ---
Subjective Patient reports: feels better and flatus Exam Data for Last 24 hours Vital signs and Labs for Last 24 Hours: Temp Pulse Resp BP Pulse Ox O2 Del Method O2 Flow Rate 98.1 F 75 16 127/67 95 Room Air 1.5 06/27/24 04:00 06/27/24 04:00 06/27/24 04:00 06/27/24 04:00 06/27/24 04:00 06/27/24 05:00 06/26/24 08:00 Laboratory Results - last 24 hr 06/26/24 05:48: Hgb 13.1 D, Total Counted 100, Neutrophils % (Manual) 91 H, Lymphocytes % (Manual) 7 L, Monocytes % (Manual) 2, Platelet Estimate Normal, RBC Morphology Normal 06/27/24 05:56: WBC 16.9 H D, RBC 4.05 L, Hgb 12.8, Hct 38.4, MCV 94.7, MCH 31.6 H, MCHC 33.3, RDW 13.6, Plt Count 386, MPV 7.8, Neut % (Auto) 79.8, Lymph % (Auto) 14.5, [place] % (Auto) 4.7, Eos % (Auto) 0.7, Baso % (Auto) 0.3, Neut # (Auto) 13.5 H, Lymph # (Auto) 2.4, [place] # (Auto) 0.8, Eos # (Auto) 0.1, Baso # (Auto) 0.1, Sodium 139, Potassium 4.1, Chloride 108 H, Carbon Dioxide 26, Anion Gap 9.1, BUN 16, Creatinine 1.20 H, Estimated Creat Clear 35, Estimated GFR 45 L, Est GFR ( Amer) 54 L, Glucose 102 H, Calcium 8.0 L I & O for Last 24 hours: Intake & Output 06/24/24 06/25/24 06/26/24 06/27/24 11:59 11:59 11:59 11:59 Intake Total 2560 / 2560 1250 / 1250 Output Total 550 / 550 0 / 0 Balance 2009 1250 / 1250 Weight 244 lb 244 lb 0.016 oz Constitutional Constitutional: no acute distress *Routine Respiratory Exam Respiratory: Absent respiratory distress *Routine Cardiovascular Exam Cardiovascular: Present RRR *Routine Abdominal Exam Abdominal: Present soft Comments: Dressings intact. No cellulitis Progress Note: A&P Assessment and plan (1) Gangrenous appendicitis: Status: Acute Assessment and plan: Overall, doing well status post laparoscopic appendectomy Discharge home with close outpatient follow-up Complete course of antibiotics secondary to gangrenous/perforated nature of appendicitis (2) Dehydration: Status: Resolved (3) Leukocytosis: Status: Resolved (4) Hypercholesterolemia: Status: Chronic (5) Hypoxemia: Status: Resolved
--- NOTE | 2024-06-27 07:25 | P.DS_ITS ---
General Admission date:: 06/25/24 Discharge date: 06/27/24 HPI HPI HPI: This is a 64-year-old female who presented to her primary care provider earlier today with complaints of a 2+ day history of increasing abdominal pain. Evaluation included a CT scan that revealed changes consistent with perforated appendicitis. Please see HPI forwarded from outpatient primary care evaluation below. Forwarded from outpatient primary care provider evaluation: The patient is a 64-year-old female with past medical history of arthritis of the knees, hypertension, and hyperlipidemia who presents for evaluation of low- grade fever and abdominal pain. The pain started on the evening of 06/23/2024 with low-grade fevers up to 100.5, and crampy upper abdominal and mid abdominal pain. The pain is rather diffuse and hard to isolate. No nausea or vomiting. No change in bowel habits. No melena or hematochezia. No hematuria. No dysuria or frequency. No cough, sputum production, hemoptysis, or pleurisy. No URI symptoms. No jaundice. Physical exam?HEENT?no jaundice. Throat?clear. Neck?supple without JVD, adenopathy, thyromegaly. Chest?clear. Cardiovascular?regular rate and rhythm without murmurs, rubs, or gallops. Abdomen?soft, bowel sounds intact, some tenderness to palpation in both upper quadrants and mid abdomen. No masses or organomegaly. No rashes. Extremity?no cyanosis, clubbing, or edema. Musculoskeletal?no acute synovitis or effusions. Neurologic?alert. No gross focal deficits. CBC?WBC 17.7. CMP?normal liver enzymes with the exception of AST which is 37, amylase is normal. Acute abdominal series?chest is clear, no free air, nonspecific bowel gas pattern. CT scan of abdomen and pelvis?acute appendicitis with a contained microperforation. Hospital Course Hospital Course Hospital Course: The patient underwent laparoscopic appendectomy (please see operative report for detail). Postoperatively she progressed well. She was maintained on Zosyn during her hospitalization and remained afebrile. On the morning of postoperative day 2 she was deemed appropriate for discharge with close outpatient follow-up and completion of a course of antibiotics secondary to the gangrenous/perforated nature of her appendix. Condition at discharge: At the time of discharge patient was afebrile with stable and normal vital signs. She was ambulating without difficulty and tolerating a regular diet. Exam Data for Last 24 hours Vital signs and Labs for Last 24 Hours: Temp Pulse Resp BP Pulse Ox O2 Del Method O2 Flow Rate 98.1 F 75 16 127/67 95 Room Air 1.5 06/27/24 04:00 06/27/24 04:00 06/27/24 04:00 06/27/24 04:00 06/27/24 04:00 06/27/24 05:00 06/26/24 08:00 Laboratory Results - last 24 hr 06/26/24 05:48: Hgb 13.1 D, Total Counted 100, Neutrophils % (Manual) 91 H, Lymphocytes % (Manual) 7 L, Monocytes % (Manual) 2, Platelet Estimate Normal, RBC Morphology Normal 06/27/24 05:56: WBC 16.9 H D, RBC 4.05 L, Hgb 12.8, Hct 38.4, MCV 94.7, MCH 31.6 H, MCHC 33.3, RDW 13.6, Plt Count 386, MPV 7.8, Neut % (Auto) 79.8, Lymph % (Auto) 14.5, [place] % (Auto) 4.7, Eos % (Auto) 0.7, Baso % (Auto) 0.3, Neut # (Auto) 13.5 H, Lymph # (Auto) 2.4, [place] # (Auto) 0.8, Eos # (Auto) 0.1, Baso # (Auto) 0.1, Sodium 139, Potassium 4.1, Chloride 108 H, Carbon Dioxide 26, Anion Gap 9.1, BUN 16, Creatinine 1.20 H, Estimated Creat Clear 35, Estimated GFR 45 L , Est GFR ( Amer) 54 L, Glucose 102 H, Calcium 8.0 L I & O for Last 24 hours: Intake & Output 06/24/24 06/25/24 06/26/24 06/27/24 11:59 11:59 11:59 11:59 Intake Total 2560 / 2560 1250 / 1250 Output Total 550 / 550 0 / 0 Balance 2009 1250 / 1250 Weight 244 lb 244 lb 0.016 oz Constitutional Constitutional: no acute distress *Routine HEENT Exam Head: Present normocephalic Eye: Present EOMI ENT: Present mucous membranes moist *Routine Neck Exam Neck: Present full ROM Routine Chest/Breast/Axilla Exam Chest wall: Absent tenderness *Routine Respiratory Exam Respiratory: Absent respiratory distress *Routine Cardiovascular Exam Cardiovascular: Present RRR *Routine Abdominal Exam Abdominal: Present soft *Routine Rectal Exam Patient deferred: visual exam and digital exam *Routine Exam Patient deferred: external exam *Routine Extremities Exam Extremities: Present full ROM Routine Back/Spine/Pelvis Exam Back/Spine: Present full ROM *Routine Skin Exam Skin: Absent erythema *Routine Neurological Exam Neurological: Present alert and oriented X3 Routine Psychiatric Exam Psychiatric: Present normal affect Results Data Completed and Pending Labs on day of discharge: Labs from last 24 hours 06/27/24 06/26/24 05:56 05:48 WBC 16.9 H D RBC 4.05 L Hgb 12.8 13.1 D Hct 38.4 MCV 94.7 MCH 31.6 H MCHC 33.3 RDW 13.6 Plt Count 386 MPV 7.8 Neut % (Auto) 79.8 Lymph % (Auto) 14.5 [place] % (Auto) 4.7 Eos % (Auto) 0.7 Baso % (Auto) 0.3 Neut # (Auto) 13.5 H Lymph # (Auto) 2.4 [place] # (Auto) 0.8 Eos # (Auto) 0.1 Baso # (Auto) 0.1 Total Counted 100 Neutrophils % (Manual) 91 H Lymphocytes % (Manual) 7 L Monocytes % (Manual) 2 Platelet Estimate Normal RBC Morphology Normal Sodium 139 Potassium 4.1 Chloride 108 H Carbon Dioxide 26 Anion Gap 9.1 BUN 16 Creatinine 1.20 H Estimated Creat Clear 35 Estimated GFR 45 L Est GFR ( Amer) 54 L Glucose 102 H Calcium 8.0 L DS: Diagnosis Discharge Diagnosis (1) Gangrenous appendicitis: Status: Acute Code(s): K35.891 - Other acute appendicitis without perforation, with gangrene (2) Dehydration: Status: Resolved Code(s): E86.0 - Dehydration (3) Leukocytosis: Status: Resolved Code(s): D72.829 - Elevated white blood cell count, unspecified (4) Hypercholesterolemia: Status: Chronic Code(s): E78.00 - Pure hypercholesterolemia, unspecified (5) Hypoxemia: Status: Resolved Code(s): R09.02 - Hypoxemia Meds Home Medications and Allergies Home Medications ?Medication ?Instructions ?Recorded ?Confirmed ?Type atorvastatin 20 mg tablet 20 mg PO HS 06/25/24 06/26/24 History losartan 50 mg tablet 50 mg PO DAILY 06/26/24 06/26/24 History amoxicillin 500 mg-potassium 1 tab PO TID #21 tabs 06/27/24 Rx clavulanate 125 mg tablet (Augmentin) hydrocodone 5 mg-acetaminophen 325 1 tab PO Q6H PRN post-op pain #13 06/27/24 Rx mg tablet tabs New Prescriptions to Start Prescriptions: amoxicillin-pot clavulanate [Augmentin] Yunior Barnes hydrocodone-acetaminophen Yunior Barnes Allergies Allergy/AdvReac Type Severity Reaction Status Date / Time No Known Allergies Allergy Unverified 06/25/24 13:07 Discharge Plan Disposition Patient Disposition: Home, Self-Care Discharge Order Discharge Orders: Discharge Order (Routine); Ordered 06/27/24 Ordered By: Yunior Barnes Follow up Plan Follow up with: Yunior Barnes MD [Staff Physician] - 07/02/24 Prescriptions/Medication Reconciliation: New amoxicillin-pot clavulanate [Augmentin] 500-125 mg tablet 1 tab PO TID Qty: 21 0RF hydrocodone-acetaminophen 5-325 mg tablet 1 tab PO Q6H PRN (Reason: post-op pain) Qty: 13 0RF Continued atorvastatin 20 mg tablet 20 mg PO HS Patient Comments: TAKE 1 TABLET BY MOUTH ONCE DAILY losartan 50 mg tablet 50 mg PO DAILY Patient Comments: TAKE 1 TABLET BY MOUTH DAILY Problem Reconciliation Problems Reviewed?: Yes Patient Discharge Instructions ACTIVITY: Ambulate as tolerated and No heavy lifting DIET: advance to your usual diet Patient Instructions: Appendicitis, Surgical Site Infection Print Language: Ukrainian Providers Primary Care Provider: Joon Sandy Admit Provider: Yunior Barnes Attending Provider: Yunior Barnes
[2024-06-27 07:59] VITALS: BP 138/68; PULSE 86; RESP 18; TEMP 36.7; O2SAT 95
--- NOTE | 2024-06-27 08:22 | EXP.ANES.II ---
[facility] Anesthesia Record Part II Anesthesia Record Part II Discharge Time: 19:10 Destination: Medical Surgical Department PACU nurse assessment reviewed?: Yes Patient Condition:: Good Anesthesia Complications:: None Swallowing reflex intact?: Yes Airway Patency: Patent Cyanosis?: No Blood Pressure: 124/76 SaO2: 94 Respiratory Rate: 17 Pulse Rate: 82 Temperature: 97.5 F Mental Status: Alert & Oriented Pain level:: 0 Nausea and/or vomitting:: None Intake, IV Amount: 0 Hydration: Adequate
[2024-06-27 08:23] VITALS: BP 124/76; PULSE 82; RESP 17; TEMP 36.4; O2SAT 94
[2024-06-27 09:24] LABS: Lymphocytes % 19 % (10-50); Monocytes % 2 % (2-9); Neutrophils % 79 % (42-76); Total Cells Counted 100
[2024-06-27 09:25] LABS: Platelet Estimate Normal; RBC Morphology Normal
--- NOTE | 2024-06-30 11:22 | SW/DCPLANNER ---
At the time of dishcarge call patient is currently in the hospital. Darius Freitas
== END 2024-06-27 10:04 | disposition home or self-care (01) | DRG 399 ==
LOC: 2ND 17:19
PROVIDERS: Admitting Provider Surgery; PCP Internal Medicine; Visit Provider Surgery
PROC: 0DTJ4ZZ Resection of Appendix, Percutaneous Endoscopic Approach (ICD-10-PCS; CPT 44970; principal; 2024-06-25 16:00)
DX: K35.32 Acute appendicitis with perforation, localized peritonitis, and gangrene, without abscess (principal); E86.0 Dehydration; D72.829 Elevated white blood cell count, unspecified; E78.00 Pure hypercholesterolemia, unspecified; R09.02 Hypoxemia; F17.210 Nicotine dependence, cigarettes, uncomplicated
CPT/HCPCS: 36415; 74021; 74176; 80048; 80053; 81001; 82150; 85007; 85025; 87086; 88304; J3490; J0696; J1100; J2250; J2270; J2405; J2543; J3010; J7030; J7120

== ENCOUNTER 2024-06-27 17:10 | Inpatient (IN) | payer MEDICARE, SELFPAY ==
[2024-06-27] VITALS (17 sets, daily range): BP systolic 137–195; BP diastolic 64–101; PULSE 76–95; RESP 18; TEMP 36.6–36.7; O2SAT 92–98; BMI 25.8; BMI 44.7
--- NOTE | 2024-06-27 17:18 | ED_ITS ---
<Statement entered by Rambo Avila MD - 06/27/24 23:22> I was consulted by the JAMARCUS, and we discussed the complexity of the problems being addressed. I approved the treatment and management plan for this patient's care in the emergency department, thus performing a substantive portion of the medical decision making. Rambo Avila MD, [facility], [facility] Discharge Plan Disposition Patient Disposition: Admitted Clinical Impressions Clinical Impression: Sepsis without septic shock, Postoperative ileus Discharge ED Provider: Rambo Avila General Adult HPI <HANNAH Molina - Last Filed: 06/27/24 20:42> General Chief complaint: Nausea/Vomiting/Diarrhea Stated complaint: post op 06/25, vomiting Time Seen by Provider: 06/27/24 17:17 History of Present Illness HPI narrative: Patient presents for evaluation of postoperative nausea. Patient had a contained perforation of her appendix with no abscess formation initially and patient was admitted and taken to the operating room on 06/25/2024. She had a normal postoperative course and had a bowel movement on the morning of discharge which was today 06/27/2024. However since discharge patient went home and lay down when she awoke around 1 PM she has had 3 episodes of vomiting since. She has been intolerant of any oral intake since. She denies increase in abdominal pain chest pain shortness of breath fever chills hemoptysis hematochezia melena diarrhea. Related Data Home Medications ?Medication ?Instructions ?Recorded ?Confirmed atorvastatin 20 mg tablet 20 mg PO HS 06/25/24 06/26/24 losartan 50 mg tablet 50 mg PO DAILY 06/26/24 06/26/24 Previous Rx's ?Medication ?Instructions ?Recorded amoxicillin 500 mg-potassium 1 tab PO TID #21 tabs 06/27/24 clavulanate 125 mg tablet (Augmentin) hydrocodone 5 mg-acetaminophen 325 1 tab PO Q6H PRN post-op pain #13 06/27/24 mg tablet tabs Allergies Allergy/AdvReac Type Severity Reaction Status Date / Time No Known Allergies Allergy Unverified 06/25/24 13:07 PFSH <HANNAH Molina - Last Filed: 06/27/24 20:42> PFS Disclaimer: The information contained in this section may have been updated after the patient was seen, as this information can be updated by other users. Medical History Arthritis Hyperlipidemia Surgical History H/O: hysterectomy Family History No significant family history Social History Smoking Status: Former smoker tobacco type: cigarettes packs per day: 1 second hand exposure: Yes alcohol intake: never substance use type: denies use current occupational status: employed household members: spouse and children housing: house Other Medical History Have you received the Flu Vaccine for this season: No Have you received the Pneumonia Vaccine: No <HANNAH Molina - Last Filed: 06/27/24 20:42> ROS Obtained: Yes Systems reviewed as appropriate & no additional complaints except as documented Physical Exam <HANNAH Molina - Last Filed: 06/27/24 20:42> General General appearance: alert and in no apparent distress Respiratory Respiratory exam: Present normal lung sounds bilaterally Cardiovascular Cardiovascular exam: Present regular rate Neurological Exam Neurological exam: Present alert and oriented X3 Medical Decision Making <HANNAH Molina - Last Filed: 06/27/24 20:42> Medical Records Medical records reviewed: Yes I reviewed the patient's medical records. Screening: Per USPSTF and CDC recommendations, given the prevalence of disease in our region, it is our hospital?s policy to screen for HIV and viral Hepatitis for all patients aged 18 and over and those with ongoing risk factors. [place] Inquiry Pt receiving controlled substance: No Vital Signs: 06/27/24 17:11 06/27/24 17:23 06/27/24 17:31 Temperature 98.0 F Temperature Source Oral Pulse Rate 95 H 77 Pulse Rate [Radial] 88 Respiratory Rate 18 Blood Pressure 137/79 157/64 H Blood Pressure [Right Arm] 137/79 Blood Pressure Mean 103 111 Blood Pressure Mean [Right Arm] 98 Blood Pressure Source [Right Arm] Automatic Cuff Blood Pressure Position [Right Arm] Sitting 02 Sat by Pulse Oximetry 96 95 94 L Oxygen Delivery Method Room Air 06/27/24 17:45 06/27/24 18:00 06/27/24 18:15 Temperature Temperature Source Pulse Rate 79 76 80 Pulse Rate [Radial] Respiratory Rate Blood Pressure 147/86 H 145/84 H 164/88 H Blood Pressure [Right Arm] Blood Pressure Mean 106 Blood Pressure Mean [Right Arm] Blood Pressure Source [Right Arm] Blood Pressure Position [Right Arm] 02 Sat by Pulse Oximetry 93 L 93 L 93 L Oxygen Delivery Method 06/27/24 18:31 06/27/24 18:45 06/27/24 19:16 Temperature Temperature Source Pulse Rate 82 78 81 Pulse Rate [Radial] Respiratory Rate Blood Pressure 157/84 H 154/92 H 165/94 H Blood Pressure [Right Arm] Blood Pressure Mean Blood Pressure Mean [Right Arm] Blood Pressure Source [Right Arm] Blood Pressure Position [Right Arm] 02 Sat by Pulse Oximetry 94 L 97 96 Oxygen Delivery Method 06/27/24 19:31 Temperature Temperature Source Pulse Rate 79 Pulse Rate [Radial] Respiratory Rate Blood Pressure 160/94 H Blood Pressure [Right Arm] Blood Pressure Mean Blood Pressure Mean [Right Arm] Blood Pressure Source [Right Arm] Blood Pressure Position [Right Arm] 02 Sat by Pulse Oximetry 95 Oxygen Delivery Method Lab Data Lab results reviewed: Yes I reviewed the patient's lab results. Lab Results 06/27/24 17:23: WBC 22.2 H* D, RBC 4.86, Hgb 15.2 D, Hct 45.7, MCV 94.1, MCH 31.4 H, MCHC 33.4, RDW 13.4, Plt Count 399, MPV 9.1, Neut % (Auto) 87.3 H, Lymph % (Auto) 7.9 L, Coffey % (Auto) 4.7, Eos % (Auto) 0.2, Baso % (Auto) 0.4, Neut # (Auto) 19.4 H, Lymph # (Auto) 1.8, Coffey # (Auto) 1.0, Eos # (Auto) 0.0, Baso # (Auto) 0.1, Total Counted 100, Neutrophils % (Manual) 83 H, Lymphocytes % (Manual) 13, Monocytes % (Manual) 4, Platelet Estimate Normal, RBC Morphology Normal, Sodium 140, Potassium 4.3, Chloride 106, Carbon Dioxide 26, Anion Gap 12.3, BUN 16, Creatinine 1.10 H, Estimated Creat Clear 38, Estimated GFR 50 L, Est GFR ( Amer) 60, Glucose 140 H D, Calcium 8.9, Total Bilirubin 0.8, AST 34, ALT 28, Alkaline Phosphatase 98, Total Protein 7.8, Albumin 4.0, G lobulin 3.8 H, Albumin/Globulin Ratio 1.1, HIV 1&2 Antibody Rapid Nonreactive 06/27/24 17:29: Procalcitonin 1.38 06/27/24 17:23 06/27/24 17:23 Orders (Tests/Meds): ED MEDICATIONS Generic Name Dose Route Start Last Admin Trade Name Freq PRN Reason Stop Dose Admin Enoxaparin Sodium 40 mg 06/28/24 09:00 Enoxaparin 40mg/0.4ml Syringe SUBCUT 07/28/24 08:59 DAILY KATJA Piperacillin Sod/Tazobactam 50 mls @ 100 mls/hr 06/27/24 20:08 Sod 3.375 gm/ Sodium Chloride IV 06/27/24 20:37 ONCE ONE Sodium Chloride 1,000 mls @ 100 mls/hr 06/27/24 20:15 Sod Chlor 0.9% 1000ml Bag IV 07/27/24 20:14 .Q10H KATJA Ondansetron HCl 4 mg 06/27/24 20:07 Ondansetron 4mg/2ml Vial IV 07/27/24 20:06 Q4HP PRN Nausea Sodium Chloride 10 ml 06/27/24 19:00 06/27/24 19:01 Sodium Chloride 0.9% 10ml Syr (Rad Only) IV 07/27/24 18:59 10 ml NEEDED PRN Administration Maintain IV Site Discontinued Medications Generic Name Dose Route Start Last Admin Trade Name Freq PRN Reason Stop Dose Admin Sodium Chloride 1,000 mls @ 999 mls/hr 06/27/24 17:20 06/27/24 17:32 Sod Chlor 0.9% 1000ml Bag IV 06/27/24 18:20 999 mls/hr .Q1H1M ONE Administration Iopamidol 75 ml 06/27/24 19:00 06/27/24 19:01 Iopamidol-370 (76%);100ml Bottle IV 06/27/24 19:01 75 ml ONCE ONE Administration Ondansetron HCl 4 mg 06/27/24 17:20 06/27/24 17:32 Ondansetron 4mg/2ml Vial IV 06/27/24 17:21 4 mg ONCE ONE Administration ORDERS Category Date Time Status CT abdomen pelvis w con Stat Cat Scan 06/27/24 18:47 Completed CBC w/Auto Diff [Complete Blood Count Auto Diff] Stat Lab 06/27/24 17:23 Completed CMP [Comprehensive Metabolic Panel] Stat Lab 06/27/24 17:23 Completed Complete Blood Count Auto Diff AMLAB Lab 06/28/24 06:00 Ordered Complete Blood Count Auto Diff AMLAB Lab 06/29/24 06:00 Ordered Complete Blood Count Auto Diff AMLAB Lab 06/30/24 06:00 Ordered Complete Blood Count Auto Diff AMLAB Lab 07/01/24 06:00 Ordered Complete Blood Count Auto Diff AMLAB Lab 07/02/24 06:00 Ordered Comprehensive Metabolic Panel AMLAB Lab 06/28/24 06:00 Ordered Comprehensive Metabolic Panel AMLAB Lab 06/29/24 06:00 Ordered Comprehensive Metabolic Panel AMLAB Lab 06/30/24 06:00 Ordered Comprehensive Metabolic Panel AMLAB Lab 07/01/24 06:00 Ordered Comprehensive Metabolic Panel AMLAB Lab 07/02/24 06:00 Ordered HIV (1&2) Antibody Rapid Stat Lab 06/27/24 17:23 Completed Hep C Ab with Reflex to RNA Stat Lab 06/27/24 17:23 Received Magnesium AMLAB Lab 06/28/24 06:00 Ordered Magnesium AMLAB Lab 06/29/24 06:00 Ordered Magnesium AMLAB Lab 06/30/24 06:00 Ordered Magnesium AMLAB Lab 07/01/24 06:00 Ordered Magnesium AMLAB Lab 07/02/24 06:00 Ordered Phosphorous AMLAB Lab 06/28/24 06:00 Ordered Phosphorous AMLAB Lab 06/29/24 06:00 Ordered Phosphorous AMLAB Lab 06/30/24 06:00 Ordered Phosphorous AMLAB Lab 07/01/24 06:00 Ordered Phosphorous AMLAB Lab 07/02/24 06:00 Ordered Procalcitonin Stat Lab 06/27/24 17:29 Completed Tissue Perfus/Sepsis Re-Eval Sepsis Re-Evaluation Performed: Yes Date Performed: 06/27/24 Time Performed: 20:09 Medical Decision Narrative: In summary patient is a 64-year-old female who presents to the emergency department for evaluation of tractable nausea. Patient is initially normotensive with a blood pressure 137/79 heart rate of 88 breathing 18 times a minute temperature 98.0 satting at 96% on room air upon arrival. Physical exam reveals an unwell appearing but otherwise well-nourished well-developed 64-year-old female who is in no acute distress. Abdominal exam shows no focal tenderness and her abdomen is soft and appropriately tender postoperatively with no rebound or guarding or rigidity. Bowel sounds are quiescent currently. Differential diagnosis includes postoperative nausea versus worsening infection versus abscess formation versus dehiscence etc. Initial workup will be conducted with hematologic labs CT scan abdomen pelvis. Initial interventions include crystalloid bolus Zofran IV. Initial workup reviewed by me shows her white count is 22.2 thousand which is up from her morning lab of 16.9 with an absolute neutrophil count of 19.4 which is up from 13.5 and the remainder of her hematologic labs being nonactionable. My informal interpretation of her CT scan abdomen pelvis shows worse inflammation in the right lower quadrant but no definitive fluid collection or free air beyond what might be expected from a postop laparoscopy. Distally patient has a area right above the right iliac crest on the coronal view image #[id number] that shows a dilated loop of small bowel to the left and a immediate decompressed small bowel to the on the right. Upon repeat evaluation patient is in tolerant of any p.o. challenge. Given this had interactive discussion with Dr. Dia of general surgery and he agreed that patient likely needs to come in and though this has the appearance of a partial small bowel obstruction is likely reflect ileus but neither way an NG tube was requested and will be placed. I then had an interactive discussion with hospital medicine about patient management and she will be admitted for further evaluation and care. This is Dr. Avila working with [place] on this case and her white blood cell count has risen significantly. It was [address] scan it was severe intraoperatively was gangrenous and had a perforation. There was no evidence of an intra-abdominal abscess both on CT scan and intraoperatively however Dr. Peres did want the patient to be on antibiotics however she has been unable to keep any antibiotics down since being discharged given her nausea and vomiting she also states that she overall just does not feel well. She does have abdominal pain but states that is very difficult to tell if it is worse as she was recently operated on. Therefore I am worried about a worsening intra-abdominal infection and will get a CT scan with contrast for further evaluation and management. Nonetheless she still is feeling very poor after IV fluids and nausea and is currently not able to keep any medications down and likely will need to be admitted for IV antibiotics and that she feels significantly better with a negative CAT scan. <Rambo Avila MD - Last Filed: 06/27/24 18:49> Vital Signs: 06/27/24 17:11 06/27/24 17:23 06/27/24 17:31 Temperature 98.0 F Temperature Source Oral Pulse Rate 95 H 77 Pulse Rate [Radial] 88 Respiratory Rate 18 Blood Pressure 137/79 157/64 H Blood Pressure [Right Arm] 137/79 Blood Pressure Mean 103 111 Blood Pressure Mean [Right Arm] 98 Blood Pressure Source [Right Arm] Automatic Cuff Blood Pressure Position [Right Arm] Sitting 02 Sat by Pulse Oximetry 96 95 94 L Oxygen Delivery Method Room Air 06/27/24 17:45 06/27/24 18:00 06/27/24 18:15 Temperature Temperature Source Pulse Rate 79 76 80 Pulse Rate [Radial] Respiratory Rate Blood Pressure 147/86 H 145/84 H 164/88 H Blood Pressure [Right Arm] Blood Pressure Mean 106 Blood Pressure Mean [Right Arm] Blood Pressure Source [Right Arm] Blood Pressure Position [Right Arm] 02 Sat by Pulse Oximetry 93 L 93 L 93 L Oxygen Delivery Method 06/27/24 18:31 06/27/24 18:45 06/27/24 19:16 Temperature Temperature Source Pulse Rate 82 78 81 Pulse Rate [Radial] Respiratory Rate Blood Pressure 157/84 H 154/92 H 165/94 H Blood Pressure [Right Arm] Blood Pressure Mean Blood Pressure Mean [Right Arm] Blood Pressure Source [Right Arm] Blood Pressure Position [Right Arm] 02 Sat by Pulse Oximetry 94 L 97 96 Oxygen Delivery Method 06/27/24 19:31 Temperature Temperature Source Pulse Rate 79 Pulse Rate [Radial] Respiratory Rate Blood Pressure 160/94 H Blood Pressure [Right Arm] Blood Pressure Mean Blood Pressure Mean [Right Arm] Blood Pressure Source [Right Arm] Blood Pressure Position [Right Arm] 02 Sat by Pulse Oximetry 95 Oxygen Delivery Method Lab Data Lab Results 06/27/24 17:23: WBC 22.2 H* D, RBC 4.86, Hgb 15.2 D, Hct 45.7, MCV 94.1, MCH 31.4 H, MCHC 33.4, RDW 13.4, Plt Count 399, MPV 9.1, Neut % (Auto) 87.3 H, Lymph % (Auto) 7.9 L, Coffey % (Auto) 4.7, Eos % (Auto) 0.2, Baso % (Auto) 0.4, Neut # (Auto) 19.4 H, Lymph # (Auto) 1.8, Coffey # (Auto) 1.0, Eos # (Auto) 0.0, Baso # (Auto) 0.1, Total Counted 100, Neutrophils % (Manual) 83 H, Lymphocytes % (Manual) 13, Monocytes % (Manual) 4, Platelet Estimate Normal, RBC Morphology Normal, Sodium 140, Potassium 4.3, Chloride 106, Carbon Dioxide 26, Anion Gap 12.3, BUN 16, Creatinine 1.10 H, Estimated Creat Clear 38, Estimated GFR 50 L, Est GFR ( Amer) 60, Glucose 140 H D, Calcium 8.9, Total Bilirubin 0.8, AST 34, ALT 28, Alkaline Phosphatase 98, Total Protein 7.8, Albumin 4.0, G lobulin 3.8 H, Albumin/Globulin Ratio 1.1, HIV 1&2 Antibody Rapid Nonreactive 06/27/24 17:29: Procalcitonin 1.38 Orders (Tests/Meds): ED MEDICATIONS Generic Name Dose Route Start Last Admin Trade Name Freq PRN Reason Stop Dose Admin Enoxaparin Sodium 40 mg 06/28/24 09:00 Enoxaparin 40mg/0.4ml Syringe SUBCUT 07/28/24 08:59 DAILY KATJA Piperacillin Sod/Tazobactam 50 mls @ 100 mls/hr 06/27/24 20:08 Sod 3.375 gm/ Sodium Chloride IV 06/27/24 20:37 ONCE ONE Sodium Chloride 1,000 mls @ 100 mls/hr 06/27/24 20:15 Sod Chlor 0.9% 1000ml Bag IV 07/27/24 20:14 .Q10H KATJA Ondansetron HCl 4 mg 06/27/24 20:07 Ondansetron 4mg/2ml Vial IV 07/27/24 20:06 Q4HP PRN Nausea Sodium Chloride 10 ml 06/27/24 19:00 06/27/24 19:01 Sodium Chloride 0.9% 10ml Syr (Rad Only) IV 07/27/24 18:59 10 ml NEEDED PRN Administration Maintain IV Site Discontinued Medications Generic Name Dose Route Start Last Admin Trade Name Neyq PRN Reason Stop Dose Admin Sodium Chloride 1,000 mls @ 999 mls/hr 06/27/24 17:20 06/27/24 17:32 Sod Chlor 0.9% 1000ml Bag IV 06/27/24 18:20 999 mls/hr .Q1H1M ONE Administration Iopamidol 75 ml 06/27/24 19:00 06/27/24 19:01 Iopamidol-370 (76%);100ml Bottle IV 06/27/24 19:01 75 ml ONCE ONE Administration Ondansetron HCl 4 mg 06/27/24 17:20 06/27/24 17:32 Ondansetron 4mg/2ml Vial IV 06/27/24 17:21 4 mg ONCE ONE Administration ORDERS Category Date Time Status CT abdomen pelvis w con Stat Cat Scan 06/27/24 18:47 Completed CBC w/Auto Diff [Complete Blood Count Auto Diff] Stat Lab 06/27/24 17:23 Completed CMP [Comprehensive Metabolic Panel] Stat Lab 06/27/24 17:23 Completed Complete Blood Count Auto Diff AMLAB Lab 06/28/24 06:00 Ordered Complete Blood Count Auto Diff AMLAB Lab 06/29/24 06:00 Ordered Complete Blood Count Auto Diff AMLAB Lab 06/30/24 06:00 Ordered Complete Blood Count Auto Diff AMLAB Lab 07/01/24 06:00 Ordered Complete Blood Count Auto Diff AMLAB Lab 07/02/24 06:00 Ordered Comprehensive Metabolic Panel AMLAB Lab 06/28/24 06:00 Ordered Comprehensive Metabolic Panel AMLAB Lab 06/29/24 06:00 Ordered Comprehensive Metabolic Panel AMLAB Lab 06/30/24 06:00 Ordered Comprehensive Metabolic Panel AMLAB Lab 07/01/24 06:00 Ordered Comprehensive Metabolic Panel AMLAB Lab 07/02/24 06:00 Ordered HIV (1&2) Antibody Rapid Stat Lab 06/27/24 17:23 Completed Hep C Ab with Reflex to RNA Stat Lab 06/27/24 17:23 Received Magnesium AMLAB Lab 06/28/24 06:00 Ordered Magnesium AMLAB Lab 06/29/24 06:00 Ordered Magnesium AMLAB Lab 06/30/24 06:00 Ordered Magnesium AMLAB Lab 07/01/24 06:00 Ordered Magnesium AMLAB Lab 07/02/24 06:00 Ordered Phosphorous AMLAB Lab 06/28/24 06:00 Ordered Phosphorous AMLAB Lab 06/29/24 06:00 Ordered Phosphorous AMLAB Lab 06/30/24 06:00 Ordered Phosphorous AMLAB Lab 07/01/24 06:00 Ordered Phosphorous AMLAB Lab 07/02/24 06:00 Ordered Procalcitonin Stat Lab 06/27/24 17:29 Completed Medical Decision Narrative: In summary patient is a [age, sex] who presents to the emergency department for evaluation of [complaint]. Patient is [hemodynamically stable/unstable] upon arrival, [febrile/afebrile]. [Unremarkable physical exam, nonfocal exam versus focal remarkable exam]. Differential diagnosis includes [DDx]. Initial workup will be conducted with [hematologic labs, imaging, respiratory swab, describe workup]. Initial interventions include [crystalloid bolus, medications, p.o. challenge, etc.] initial workup reviewed by me [hematologic labs are remarkable for... Imaging remarkable for... Urinalysis remarkable for]. Upon repeat evaluation [patient had acceptable resolution of symptoms, had persistent pain for which additional interventions were conducted (describe interventions), tolerated p.o., was ambulatory, etc.]. Given this [patient is appropriate for discharge at this time and will be discharged with a prescription for... The case was discussed with hospital medicine regarding management and they will admit the patient their service for continued evaluation at this time... Etc.] Places where you can increase complexity: I informally interpreted the patient's chest x-ray or CT read and is remarkable for... Documenting what the medical appointment clerk shows with rate and rhythm Consideration of test but deferring. Ex: I considered chest x-ray on this patient however given that they have no oxygen requirement and are clear to auscultation all lung mackay will be deferred. Social determinants of health: Given that patient is undomiciled increases complexity. Given that patient has polysubstance abuse compounds all aspects of care This is Dr. Avila working with [place] on this case and her white blood cell count has risen significantly. It was [address] scan it was severe intraoperatively was gangrenous and had a perforation. There was no evidence of an intra-abdominal abscess both on CT scan and intraoperatively however Dr. Peres did want the patient to be on antibiotics however she has been unable to keep any antibiotics down since being discharged given her nausea and vomiting she also states that she overall just does not feel well. She does have abdominal pain but states that is very difficult to tell if it is worse as she was recently operated on. Therefore I am worried about a worsening intra-abdominal infection and will get a CT scan with contrast for further evaluation and management. Nonetheless she still is feeling very poor after IV fluids and nausea and is currently not able to keep any medications down and likely will need to be admitted for IV antibiotics and that she feels significantly better with a negative CAT scan. Critical Care <HANNAH Molina - Last Filed: 06/27/24 20:42> Critical Care Time Critical Care Time: No
--- OUTSIDE RECORDS SUMMARY | 2024-06-27 17:25 | XMS_ITS | Clinical Summary ---
Author Organization [facility] Address [address] [place] [address] Care Team Providers Care Sales And Marketing Vice President Name Role Phone Joon Sandy MD Primary Care Provider Social History Tobacco Use Types Packs/Day Years Used Date Smoking Tobacco: Never Smokeless Tobacco: Never Sex and Gender Information Value Date Recorded Sex Assigned at Not on file Gender Identity Not on file Sexual Orientation Not on file Last Filed Vital Signs Vital Sign Reading Time Taken Comments Blood Pressure - - Pulse - - Temperature - - Respiratory Rate - - Oxygen Saturation - - Inhaled Oxygen Concentration - - Weight 104.3 kg (230 lb) 04/20/2021 2:41 PM EDT Height 154.9 cm (5' 1 ) 04/20/2021 2:41 PM EDT Body Mass Index 43.46 04/20/2021 2:41 PM EDT Plan of Treatment Not on file Care Teams Sales And Marketing Vice President Relationship Specialty Start Date End Date Joon Sandy MD [address] [address] [address] [place] [address] PCP - General Internal Medicine 01/01/19
--- OUTSIDE RECORDS SUMMARY | 2024-06-27 17:25 | XMS_ITS | Encounter Summary ---
Author Organization [facility] yste Address [address] [place] [address] Care Team Providers Care Lab Asst Name Role Phone Unavailable Primary Care Provider Unavailabl e Encounter Details Date Type Department Care Team (Late st Contact Info) Description 03/13/2014 10:12 AM EDT - 03/13/2014 11:59 PM EDT Hospital Encounter [facility] [address] [address] Murali Dangelo MD [address] [place] [address] Social History Tobacco Use Types Packs/Day Years Used Date Smoking Tobacco: Never Assessed Comments Unknown Sex and Gender Information Value Date Recorded Sex Assigned at Not on file Legal Sex Female 1:43 PM EDT Gender Identity Not on file Sexual Orientation Not on file documented as of this encounter Plan of Treatment Not on file documented as of this encounter Procedures Procedure Name Priority Date/Time Associated Diagnosis Comments CBC AND DIFFERENTIAL Routine 03/13/2014 10:14 AM EDT BASIC METABOLIC PANEL Routine 03/13/2014 10:14 AM EDT documented in this encounter Results * (ABNORMAL) Basic metabolic panel (03/13/2014 10:14 AM EDT) Glucose 88 70 - 100 mg/dL [facility] BUN 15 9 - 23 mg/dL [facility] Creatinine 0.9 0.6 - 1.3 mg/dL [facility] Sodium 139 132 - 146 mmol/L [facility] Potassium 4.5 3.5 - 5.5 mmol/L [facility] Chloride 98(L) 99 - 109 mmol/L [facility] CO2 31 20 - 31 mmol/L [facility] Calcium 10.0 8.7 - 10.4 mg/dL [facility] eGFR 65 ml/min/1.7 32 [facility] Comment: DF by IF @ 03/13/2014 13:03 ?? National Kid[employer] Guidelines ?Stage ? Description ?GFR ?1 ?Normal or High ? 90+ ?2 ?Mild decrease ? 60-89 ?3 ?Moderate decrease ?30-59 ?4 ?Severe decrease ?15-29 ?5 ?Kidney failure ?<15 Anion Gap 10 3 - 11 mmol/L [facility] Blood specimen (specimen) 03/13/2014 10:14 AM EDT Narrative [facility] - 03/13/2014 1:03 PM EDT Specimen Type: Blood us Murali Dangelo MD LAB BLOOD ORDERABLES Final Result [facility] [address] [id number], * (ABNORMAL) CBC and Differential (03/13/2014 10:14 AM EDT) WBC 9.90 3.50 - 10.80 K/mcL [facility] RBC 4.81 3.89 - 5.14 [facility] Hemoglobin 14.7 11.5 - 15.5 g/dL [facility] Hematocrit 43.9 34.5 - 44.0 % [facility] MCV 91.3 80.0 - 99.0 fL [facility] MCH 30.6 27.0 - 31.0 pg [facility] MCHC 33.5 32.0 - 36.0 g/dL [facility] RDW-CV 12.9 11.3 - 14.5 % [facility] Platelets 427 150 - 450 [facility] Neutrophils Absolute 6.07 1.50 - 8.30 [facility] Lymphocytes Absolute 3.20 0.60 - 4.80 [facility] Monocytes Absolute 0.59 0.00 - 1.00 [facility] Eosinophils Absolute 0.00(L) 0.10 - 0.30 [facility] Basophils Absolute 0.02 0.00 - 0.20 [facility] Neutrophil Rel % 61.3 41.0 - 71.0 % [facility] Lymphocyte Rel % 32.3 24.0 - 44.0 % [facility] Monocyte Rel % 6.0 0.0 - 12.0 % [facility] Eosinophil Rel % 0.0 0.0 - 3.0 % [facility] Basophil Rel % 0.2 0.0 - 1.0 % [facility] Immature Granulocyte Rel % 0.2 0.0 - 0.6 % [facility] Blood specimen (specimen) 03/13/2014 10:14 AM EDT Narrative [facility] - 03/13/2014 12:28 PM EDT Specimen Type: Blood Murali Dangelo MD LAB BLOOD ORDERABLES Final Result [facility] [address] [place] [address], documented in this encounter Visit Diagnoses Not on filedocumented in this encounter
--- OUTSIDE RECORDS SUMMARY | 2024-06-27 17:25 | XMS_ITS ---
Author Organization Unknown ALLERGIES AND ADVERSE REACTIONS No information ASSESSMENT No information CHIEF COMPLAINT No information MEDICATIONS No information OBJECTIVE DATA No information PHYSICAL EXAMINATION No information TREATMENT PLAN Planned Care Start Date Provider Encounter for Check-up [id number] [facility] PROBLEMS No information RESULTS No information REVIEW OF SYSTEMS No information SUBJECTIVE DATA No information VITAL SIGNS No information
--- OUTSIDE RECORDS SUMMARY | 2024-06-27 17:25 | XMS_ITS | Encounter Summary ---
Author Organization [facility] Address [address] [place] [address] Care Team Providers Care Infection Control Nurse Name Role Phone Joon Sandy MD Primary Care Provider [phone] Reason for Referral * Other (Routine) - Closed Specialty Diagnoses / Procedures Referred By Cullen simon Referred To Contact Radiology Diagnoses Visit for screening mammogram Procedures ETHEL CELESTINE DIGITAL SCREEN BILATERAL Joon Sandy MD [address] [place] [address] Referral ID Status Reason Start Date Expiration Date Visits Re quested Visits Authorized [id number] Closed 04/19/2021 04/19/2022 1 1 Reason for Visit * Other (Routine) - Closed Specialty Diagnoses / Procedures Referred By Cullen siomn Referred To Contact Radiology Diagnoses Visit for screening mammogram Procedures ETHEL CELESTINE DIGITAL SCREEN BILATERAL Joon Sandy MD [address] [place] [address] Referral ID Status Reason Start Date Expiration Date Visits Re quested Visits Authorized [id number] Closed 04/19/2021 04/19/2022 1 1 Encounter Details Date Type Department Care Team (Latest Contact Info) Description 04/20/2021 2:30 PM EDT - 04/25/2021 11:59 PM EDT Hospital Encounter [facility] Mobile Mammography [address] [facility] [address] [place] [address] Visit for screening mammogram Discharge Disposition: Home or Self Care Social History Tobacco Use Types Packs/Day Years Used Date Smoking Tobacco: Never Smokeless Tobacco: Never Sex and Gender Information Value Date Recorded Sex Assigned at Not on file Gender Identity Not on file Sexual Orientation Not on file documented as of this encounter Last Filed Vital Signs Vital Sign Reading Time Taken Comments Blood Pressure - - Pulse - - Temperature - - Respiratory Rate - - Oxygen Saturation - - Inhaled Oxygen Concentration - - Weight 104.3 kg (230 lb) 04/20/2021 2:41 PM EDT Height 154.9 cm (5' 1 ) 04/20/2021 2:41 PM EDT Body Mass Index 43.46 04/20/2021 2:41 PM EDT documented in this encounter Plan of Treatment Not on file documented as of this encounter Procedures Procedure Name Priority Date/Time Associated Diagnosis Comments ETHEL CELESTINE DIGITAL SCREEN BILATERAL Routine 04/20/2021 2:45 PM EDT Visit for screening mammogram documented in this encounter Results * ETHEL CELESTINE DIGITAL SCREEN BILATERAL (04/20/2021 2:45 PM EDT) Anatomical Region Laterality Modality Bilateral Mammography 04/21/2021 8:20 AM EDT Impressions 04/21/2021 8:23 AM EDT Stable mammogram without evidence for malignancy. RECOMMENDATION: Continued routine clinical and mammographic follow up recommended. BI-RADS: 1 Negative Narrative 04/21/2021 8:23 AM EDT BILATERAL DIGITAL SCREENING MAMMOGRAM WITH CAD DIGITAL BREAST TOMOSYNTHESIS COMPARISON: 01/01/2019 Lifetime breast cancer risk 5.7% LIMITATIONS: NONE FINDINGS: The breasts have scattered areas of fibroglandular density. There are no new masses, areas of architectural distortion, or suspicious clustered microcalcifications. ?? No skin thickening or nipple abnormality identified. No axillary adenopathy seen. Digital breast tomosynthesis was utilized during interpretation. This study was performed and interpreted using Full Field Digital Mammography and Computer Aided Detection. Please note that mammography is not 100% accurate in diagnosing breast cancer. ??A routine breast physical exam is recommended to correlate with mammographic findings. Any palpable abnormality must be assessed clinically. ??If the patient has a new palpable abnormality, then a Diagnostic Mammogram and/or Breast Ultrasound may be indicated. Joon Sandy MD IM[facility] M[facility]MOGRAP[facility] documented in this encounter Visit Diagnoses Diagnosis Visit for screening mammogram Other screening mammogram documented in this encounter Care Teams Infection Control Nurse Relationship Specialty Start Date End Date Joon Sandy MD [address] [place] [address] PCP - General Internal Medicine 01/01/19 documented as of this encounter
--- OUTSIDE RECORDS SUMMARY | 2024-06-27 17:25 | XMS_ITS | Clinical Summary ---
Author Organization [facility] ystem Address [address] [place] [address] Care Team Providers Care Computer Hardware Technician Name Role Phone Unavailable Primary Care Provider Unavailabl e Social History Tobacco Use Types Packs/Day Years Used Date Smoking Tobacco: Never Assessed Abuse Screen Answer Date Recorded Unsafe at Home or Work/School Not on file Feels Threatened by Someone? Not on file 04/2023 Does Anyone Keep You from Co ntacting Others or Doint Things Outside the Home? Not on file 05/08/2023 Physical Sign of Abuse Present Not on file 1 Housing Stability Answer Date Recorded Current Living Arrangements Not on file 04/29 Potentially Unsafe Housing Conditions Not on garo e 05/08/2023 Family and Community Support Answer Billy e Recorded Help with Day-to-Day Activities Not on file 05/08/2023 Lonely or Isolated Not on file 05/08/2023 Employment Answer Date Recorded Do you want help finding or keeping work or a shonda b? Not on file 05/08/2023 Disabilities Answer Date Recorded Concentrating, Remembering, or Making Decisions Difficulty Not on file 05/08/2023 Doing Errands Independently Difficulty Not on fi le 05/08/2023 Education Answer Date Recorded Help with school or training? Not on file Preferred Language Not on file 05/08/2023 Comments Unknown Sex and Gender Information Value Date Recorded Sex Assigned at Not on file Legal Sex Female 1:43 PM EDT Gender Identity Not on file Sexual Orientation Not on file Plan of Treatment Health Maintenance Due Date Last Done Comments ANNUAL PHYSICAL 1960 COLOGUARD 1960 COLON CANCER SCREENING 5 YEAR SIGMOIDOSCOPY 1960 COLONOSCOPY [address] CANCER SCREENING 1958 CT COLONOGRAPHY 1958 DXA SCAN 1960 FECAL OCCULT BLOOD TEST 1958 FIT Testing (1 year) 1958 HEPATITIS C SCREENING 1958 TDAP/TD VACCINES (1 - Tdap) 1977 MAMMOGRAM 1998 ZOSTER VACCINE (1 of 2) 2008 Pneumococcal Vaccine 65+ (1 of 1 - PCV) 2023 INFLUENZA VACCINE 01/28/2024 COVID-19 Vaccine ( - season) 2024
--- OUTSIDE RECORDS SUMMARY | 2024-06-27 17:25 | XMS_ITS | Encounter Summary ---
Author Organization [facility] Address [address] [place] [address] Care Team Providers Care Recording Studio Set Up Worker Name Role Phone Joon Sandy MD Primary Care Provider [phone] Reason for Referral * Other (Routine) - Closed Specialty Diagnoses / Procedures Referred By Cullen simon Referred To Contact Radiology Diagnoses Visit for screening mammogram Procedures ETHEL CELESTINE [place]ITAL [place] [address] [place] [address] Referral ID Status Reason Start Date Expiration Date Visits Re quested Visits Authorized [id number] Closed 01/01/2019 01/01/2020 1 1 Reason for Visit * Other (Routine) - Closed Specialty Diagnoses / Procedures Referred By Cullen simon Referred To Contact Radiology Diagnoses Visit for screening mammogram Procedures ETHEL CELESTINE DIGITAL SCREEN BILATERAL Joon Sandy MD [address] [place] [address] Referral ID Status Reason Start Date Expiration Date Visits Re quested Visits Authorized [id number] Closed 01/01/2019 01/01/2020 1 1 Encounter Details Date Type Department Care Team (Latest Contact Info) Description 01/01/2019 9:43 AM EDT - 01/06/2019 11:59 PM EDT Hospital Encounter [facility] Mobile Mammography [address] [facility] [address] [place], [place] [id number] Visit for screening mammogram Discharge Disposition: Home or Self Care Social History Tobacco Use Types Packs/Day Years Used Date Smoking Tobacco: Never Assessed Sex and Gender Information Value Date Recorded Sex Assigned at Not on file Gender Identity Not on file Sexual Orientation Not on file documented as of this encounter Plan of Treatment Not on file documented as of this encounter Procedures Procedure Name Priority Date/Time Associated Diagnosis Comments ETHEL CELESTINE DIGITAL SCREEN BILATERAL Routine 01/01/2019 9:48 AM EDT Visit for screening mammogram documented in this encounter Results * ETHEL CELESTINE DIGITAL SCREEN BILATERAL (01/01/2019 9:48 AM EDT) Anatomical Region Laterality Modality Bilateral Mammography 01/07/2019 10:4 8 AM EDT Impressions 01/07/2019 10:50 AM EDT No direct or indirect signs of malignancy. ASSESSMENT: BI-RADS 1 Negative RECOMMENDATION: Routine screening 1 year. At the time of her mammogram the patient's lifetime breast cancer risk was calculated to be 6.3%. ??If the patient's lifetime risk is equal to or greater than 18% she will be offered additional counseling by our nurse navigator for possible admission into our high risk clinic. ??Further evaluation by a qualified healthcare professional to determine the appropriateness of genetic testing may be warranted. ??[facility] Nurse Navigator will be the contact for the patient and the patient's physician regarding these genetic testing results. ??The contact number is . Patient was entered into a reminder system for annual screening mammography notification. This study was performed and interpreted using Full Field Digital Mammography and Computer Aided Detection. Please note that mammography is not 100% accurate in diagnosing breast cancer. ??A routine breast exam is recommended to correlate with mammographic findings. Any palpable abnormality must be assessed clinically. ??If the patient has a new palpable abnormality, then a Diagnostic Mammogram and/or Breast Ultrasound is indicated if clinically appropriate. Narrative 01/07/2019 10:50 AM EDT DATE: January 01, 2019 EXAM: ETHEL CELESTINE DIGITAL SCREEN BILATERAL COMPARISON: None INDICATION: Screening FINDINGS: Tomosynthesis: Yes The breast are almost entirely fatty. Limitations of exam: No significant limitations. No direct or indirect signs of malignancy. ??No suspicious focal mass, architectural distortion, or groupings of microcalcifications are seen. Procedure Note Yves Brito MD - 01/07/2019 DATE: January 01, 2019 EXAM: ETHEL CELESTINE DIGITAL SCREEN BILATERAL COMPARISON: None INDICATION: Screening FINDINGS: Tomosynthesis: Yes The breast are almost entirely fatty. Limitations of exam: No significant limitations. No direct or indirect signs of malignancy. No suspicious focal mass,architectural distortion, or groupings of microcalcifications are seen. IMPRESSION: No direct or indirect signs of malignancy. ASSESSMENT: BI-RADS 1 Negative RECOMMENDATION: Routine screening 1 year. At the time of her mammogram the patient's lifetime breast cancer risk wascalculated to be 6.3%. If the patient's lifetime risk is equal to orgreater than 18% she will be offered additional counseling by our nursenavigator for possible admission into our high risk clinic. Further evaluation by a qualified healthcareprofessional to determine the appropriateness of genetic testing may bewarranted. [facility] Nurse Navigator will be the contact forthe patient and the patient's physician regarding these genetic testing results. The contact number is . Patient was entered into a reminder system for annual screeningmammography notification. This study was performed and interpreted using Full Field DigitalMammography and Computer Aided Detection. Please note that mammography is not 100% accurate in diagnosing breastcancer. A routine breast exam is recommended to correlate withmammographic findings. Any palpable abnormality must be assessed clinically. If the patient hasa new palpable abnormality, then a Diagnostic Mammogram and/or BreastUltrasound is indicated if clinically appropriate. Joon Sandy MD IMG MAMMOGRAP[facility] documented in this encounter Visit Diagnoses Diagnosis Visit for screening mammogram Other screening mammogram documented in this encounter Care Teams Recording Studio Set Up Worker Relationship Specialty Start Date End Date Joon Sandy MD [address] [place] [address] PCP - General Internal Medicine 01/01/19 documented as of this encounter
[2024-06-27] MEDS: ONDANSETRON 4MG/2ML VIAL 4 MG IV (17:32)
[2024-06-27] MEDS: 0.9 % SODIUM CHLORIDE 1000ML 1,000 ML 999 ML IV (17:32)
[2024-06-27 17:35] LABS: Chloride 106 mmol/L (98-107)
[2024-06-27 17:36] LABS: Potassium 4.3 mmoL/L (3.5-5.1); Sodium 140 mmol/L (136-145)
[2024-06-27 17:38] LABS: Alanine Aminotransferase 28 U/L (12-78); Anion Gap 12.3 mEq/L (5-15); Aspartate Amino Transferase 34 U/L (14-36); Blood Urea Nitrogen 16 mg/dl (7-17); Carbon Dioxide 26 mmol/L (22.0-30.0); Creatinine Clearance Estimated 38 mL/min (50-200); Estimated Glomerular Filt Rate 50 ml/min (>60); GFR (African American) 60 ML/MIN (>60)
[2024-06-27 17:39] LABS: Albumin/Globulin Ratio 1.1 (1.1-1.8); Alkaline Phosphatase 98 U/L (38-126); Bilirubin,Total 0.8 mg/dl (0.2-1.3); Calcium 8.9 mg/dl (8.4-10.2); Globulin 3.8 g/dL (1.3-3.2); Glucose 140 mg/dl (74-100); Total Protein,Serum 7.8 g/dl (6.3-8.2)
[2024-06-27 18:31] LABS: Basophils # 0.1 K/mm3 (0-0.2); Basophils % 0.4 % (0.1-2.0); Eosinophils % 0.2 % (0.1-12.0); Hematocrit 45.7 % (37.0-47.0); Lymphocytes # 1.8 K/mm3 (0.7-4.5); Lymphocytes % 7.9 % (10-50); Mean Corpuscular HGB Conc 33.4 g/dL (31.8-35.4); Mean Corpuscular Hemoglobin 31.4 pg (27.0-31.2); Mean Corpuscular Volume 94.1 fl (81-99); Mean Platelet Volume 9.1 fl (7.4-10.4); Monocytes % 4.7 % (1.7-9.3); Neutrophils # 19.4 K/mm3 (1.8-7.8); Neutrophils % 87.3 % (37.0-80.0); Platelet Count 399 K/mm3 (142-424); Red Blood Count 4.86 M/mm3 (4.20-5.40); Red Cell Distribution Width 13.4 % (11.5-17.5); White Blood Count 22.2 K/mm3 (4.8-10.8)
[2024-06-27 18:38] LABS: MANUAL DIFFERENTIAL MANUAL DIFFERENTIAL (MANUAL DIFF)
--- NOTE | 2024-06-27 18:47 | CT_ITS ---
PROCEDURE INFORMATION: Exam: CT Abdomen And Pelvis With Contrast Exam date and time: 06/27/2024 7:00 PM Age: 64 years old Clinical indication: Abdominal pain; Prior surgery; Surgery date: Post-operative (0-2 days); Surgery type: Appy; Additional info: Post operative appy 2 days; N/v wbc rising TECHNIQUE: Imaging protocol: Computed tomography of the abdomen and pelvis with contrast. Radiation optimization: All CT scans at this facility use at least one of these dose optimization techniques: automated exposure control; mA and/or kV adjustment per patient size (includes targeted exams where dose is matched to clinical indication); or iterative reconstruction. Contrast material: ISOVUE; Contrast volume: 75 ml; Contrast route: IV; COMPARISON: CT ABDOMEN PELVIS WO CON 06/25/2024 3:03 PM FINDINGS: Lungs: Bibasilar atelectasis . Findings new.Decreased density throughout the liver compatible with hepatic steatosis. Diaphragm: Small hiatal hernia Liver: Nodularity of the hepatic contour compatible with cirrhosis. Gallbladder and biliary ducts: Gallbladder unremarkable Pancreas: Pancreas unremarkable Spleen: The spleen is unremarkable. Splenic granulomas Adrenal glands: Adrenal glands unremarkable. Kidneys and ureters: Normal. No hydronephrosis. Stomach and bowel: Colonic diverticulosis. No evidence of diverticulitis. Appendix: Postoperative changes consistent with history of appendectomy. Intraperitoneal space: The increased regions of mesenteric fat stranding involving the right mid and lower quadrant. Fluid demonstrated in mildly dilated small bowel loops. Transition zone demonstrated in the right lower quadrant at the level of the iliac crest. Small amount of free fluid in the left paracolic gutter as well as in the cul-de-sac. Vasculature: Unremarkable. No abdominal aortic aneurysm. Lymph nodes: Unremarkable. No enlarged lymph nodes. Urinary bladder: Unremarkable as visualized. Reproductive: Unremarkable as visualized. Bones/joints: See Intraperitoneal space finding. Soft tissues: Unremarkable. Other findings: A call has been placed to the referring physician at which time an addended report will be issued. IMPRESSION: 1. Findings compatible with developing small bowel obstruction. Could not exclude mild changes of peritonitis. 2. Small amount of free fluid in the left paracolic gutter as well as in the cul-de-sac. 3. Bibasilar atelectasis compatible with recent operative interve. ntion
[2024-06-27 18:57] LABS: Lymphocytes % 13 % (10-50); Monocytes % 4 % (2-9); Neutrophils % 83 % (42-76); Total Cells Counted 100
[2024-06-27 18:58] LABS: RBC Morphology Normal
[2024-06-27 19:00] LABS: Platelet Estimate Normal
[2024-06-27] MEDS: SODIUM CHLORIDE 0.9% 10ML SYR (RAD ONLY) 10 ML IV (19:01)
[2024-06-27] MEDS: IOPAMIDOL-370 (76%);100ML BOTTLE 75 ML IV (19:01)
[2024-06-27 19:08] LABS: Hemoglobin 15.2 g/dL (12.2-16.2)
[2024-06-27 19:47] LABS: Procalcitonin 1.38 ng/mL (0.0-2.0)
[2024-06-27 20:01] LABS: HIV (1&2) Antibody Rapid NONREACTIVE (NONREACTIVE)
--- NOTE | 2024-06-27 20:09 | XR_ITS ---
PROCEDURE INFORMATION: Exam: XR Chest Exam date and time: 06/27/2024 8:29 PM Age: 64 years old Clinical indication: Other: Post op complications TECHNIQUE: Imaging protocol: Radiologic exam of the chest. Views: 1 view. COMPARISON: CT ABDOMEN PELVIS W CON 06/27/2024 7:00 PM FINDINGS: Lungs: Unremarkable. No consolidation. Pleural spaces: Unremarkable. No pleural effusion. No pneumothorax. Heart/Mediastinum: Unremarkable. No cardiomegaly. Bones/joints: Unremarkable. IMPRESSION: No acute findings.
--- NOTE | 2024-06-27 21:20 | XR_ITS ---
PROCEDURE INFORMATION: Exam: XR Abdomen Exam date and time: 06/27/2024 9:20 PM Age: 64 years old Clinical indication: Device placement; Gi device; Other: Ng tube placement TECHNIQUE: Imaging protocol: Radiologic exam of the abdomen. Views: Frontal supine view of the abdomen. 1 View. COMPARISON: CT ABDOMEN PELVIS W CON 06/27/2024 7:00 PM FINDINGS: Tubes, catheters and devices: NG tube at the GE junction. Gastrointestinal tract: Normal. No bowel dilation. Bones/joints: Unremarkable. IMPRESSION: NG tube at the GE junction.
[2024-06-27] MEDS: PROMETHAZINE HCL 25MG/ML 1ML VIAL 25 MG IV (21:47)
[2024-06-27] MEDS: LIDOCAINE 2% VISCOUS SOL 15ML UDC 10 ML PO (21:53)
[2024-06-27] MEDS: PIPERCILLIN/TAZO 3.375 GM in 0.9 % SODIUM CHLORIDE 50 ML IV (23:56)
[2024-06-27] MEDS: 0.9 % SODIUM CHLORIDE 1000ML 1,000 ML 100 ML IV (23:56)
[2024-06-28] VITALS: BP 157/92; PULSE 72; RESP 16; TEMP 36.7; O2SAT 95
--- NOTE | 2024-06-28 01:07 | P.HP_ITS ---
History of Present Illness *Admission Date: 06/29/24 *Reason for visit:: Postoperative ileus *History of present illness: Admitted on 06/27/2024 Amada Stallings is a 64-year-old female with a medical with medical history significant for hypertension, hyperlipidemia who returns to the ED after nausea/vomiting and inability to tolerate oral intake. She underwent a laparoscopic appendectomy for perforated/gangrenous appendicitis on 06/25/2024. She progressed well during the hospital course, however fortunately has not done well at home after being discharged today. She states she is unable to tolerate oral intake. Denies abdominal pain, fever/chills. Workup in the ED significant for WBC 22.2, CT abdomen/pelvis suggested SBO. Case discussed with ED provider and decision was made to admit patient for postoperative ileus/SBO. [facility] Disclaimer: The information contained in this section may have been updated after the patient was seen, as this information can be updated by other users. Medical History Arthritis Hyperlipidemia Surgical History H/O: hysterectomy Family History No significant family history Social History (Updated 06/27/24 @ 23:32 by Kimber Brumfield RN) Smoking Status: Former smoker tobacco type: cigarettes packs per day: 1 second hand exposure: Yes alcohol intake: never substance use type: denies use current occupational status: employed Travel in the last 8 weeks: None household members: spouse and children housing: house Other Medical History Have you received the Flu Vaccine for this season: No Have you received the Pneumonia Vaccine: No Meds Home Medications and Allergies Home Medications ?Medication ?Instructions ?Recorded ?Confirmed ?Type atorvastatin 20 mg tablet 20 mg PO HS 06/25/24 06/26/24 History losartan 50 mg tablet 50 mg PO DAILY 06/26/24 06/26/24 History amoxicillin 500 mg-potassium 1 tab PO TID #21 tabs 06/27/24 Rx clavulanate 125 mg tablet (Augmentin) hydrocodone 5 mg-acetaminophen 325 1 tab PO Q6H PRN post-op pain #13 06/27/24 Rx mg tablet tabs New Prescriptions to Start Prescriptions: Allergies Allergy/AdvReac Type Severity Reaction Status Date / Time No Known Allergies Allergy Unverified 06/25/24 13:07 Exam Data for Last 24 hours Vital signs and Labs for Last 24 Hours: Temp Pulse Resp BP Pulse Ox O2 Del Method 98.1 F 72 16 157/92 H 95 Room Air 06/28/24 00:00 06/28/24 00:00 06/28/24 00:00 06/28/24 00:00 06/28/24 00:00 06/28/24 00:00 Laboratory Results - last 24 hr 06/27/24 17:23: WBC 22.2 H* D, RBC 4.86, Hgb 15.2 D, Hct 45.7, MCV 94.1, MCH 31.4 H, MCHC 33.4, RDW 13.4, Plt Count 399, MPV 9.1, Neut % (Auto) 87.3 H, Lymph % (Auto) 7.9 L, [place] % (Auto) 4.7, Eos % (Auto) 0.2, Baso % (Auto) 0.4, Neut # (Auto) 19.4 H, Lymph # (Auto) 1.8, [place] # (Auto) 1.0, Eos # (Auto) 0.0, Baso # (Auto) 0.1, Total Counted 100, Neutrophils % (Manual) 83 H, Lymphocytes % (Manual) 13, Monocytes % (Manual) 4, Platelet Estimate Normal, RBC Morphology Normal, Sodium 140, Potassium 4.3, Chloride 106, Carbon Dioxide 26, Anion Gap 12.3, BUN 16, Creatinine 1.10 H, Estimated Creat Clear 38, Estimated GFR 50 L, Est GFR ( Amer) 60, Glucose 140 H D, Calcium 8.9, Total Bilirubin 0.8, AST 34, ALT 28, Alkaline Phosphatase 98, Total Protein 7.8, Albumin 4.0, Globulin 3.8 H, Albumin/Globulin Ratio 1.1, HIV 1&2 Antibody Rapid Nonreactive 06/27/24 17:29: Procalcitonin 1.38 I & O for Last 24 hours: Intake & Output 06/25/24 06/26/24 06/27/24 06/28/24 23:59 23:59 23:59 23:59 Weight 107.501 kg Constitutional Constitutional: no acute distress *Routine HEENT Exam Head: Present normocephalic Eye: Present EOMI and PERRL ENT: Present mucous membranes moist *Routine Neck Exam Neck: Present supple; Absent lymphadenopathy *Routine Respiratory Exam Respiratory: Present CTA bilaterally *Routine Cardiovascular Exam Cardiovascular: Present RRR *Routine Abdominal Exam Abdominal: Present soft; Absent normoactive bowel sounds or tenderness Comments: Absent bowel sounds. Distended abdomen. No tenderness. *Routine Rectal Exam Rectal:: deferred *Routine Genitalia Exam Genitalia:: deferred *Routine Extremities Exam Extremities: Absent cyanosis, clubbing or edema *Routine Skin Exam Skin: Present warm; Absent rash *Routine Neurological Exam Neurological: Present alert and oriented X3 Assessment and Plan *Assessment and plan (1) Postoperative ileus: Status: Acute Category: Medical Code(s): K91.89 - Other postprocedural complications and disorders of digestive system; K56.7 - Ileus, unspecified (2) Hypertension: Status: Acute Category: Medical Code(s): I10 - Essential (primary) hypertension Plan Amada Stallings is a 64-year-old female with a medical with medical history significant for hypertension, hyperlipidemia who returns to the ED after nausea/vomiting and inability to tolerate oral intake. She underwent a laparoscopic appendectomy for perforated/gangrenous appendicitis on 06/25/2024. She progressed well during the hospital course, however fortunately has not done well at home after being discharged today. She states she is unable to tolerate oral intake. Denies abdominal pain, fever/chills. Workup in the ED significant for WBC 22.2, CT abdomen/pelvis suggested SBO. ED consulted general surgery who recommended admission with IV antibiotics. Case discussed with ED provider and decision was made to admit patient for postoperative ileus/SBO. #Postoperative ileus versus SBO #Leukocytosis #Recent laparoscopic appendectomy ? Underwent a laparoscopic appendectomy for perforated/gangrenous appendicitis on 06/25/2024. ? NG tube placed with intermittent suction, minimal output at this time. ? More than normal distended abdomen without tenderness. ? Bowel rest for now. ? NS at 100 mL/h. ? Zosyn day 1. ? General Surgery consulted, pending recommendations. ? IV famotidine 20 mg twice daily for GI prophylaxis. #Hypertension ? Resume home losartan if appropriate. Full code DVT prophylaxis: SCDs.
[2024-06-28 04:00] VITALS: BP 156/77; PULSE 77; RESP 16; TEMP 36.8; O2SAT 96; BMI 44.7
--- NOTE | 2024-06-28 05:30 | PC.NURSE ---
Pt admitted this shift, has had no complaints since admission, and has rested well. Pt denies nausea, and abd pain. 16Fr NG tube in place to left nare @55 cm. 400 ml brown fluid dumped from suction canister upon admission. Pt has had no additional output since admission. NG tube has been flushed, and gastric sounds auscultated. Approx 3 ml gastric contents aspirated and flushed back in. NG is hooked to low wall intermittent suction.
[2024-06-28 06:37] LABS: Basophils # 0.1 K/mm3 (0-0.2); Basophils % 0.3 % (0.1-2.0); Eosinophils # 0.1 K/mm3 (0.0-0.4); Eosinophils % 0.7 % (0.1-12.0); Hematocrit 41.2 % (37.0-47.0); Hemoglobin 13.8 g/dL (12.2-16.2); Lymphocytes # 2.5 K/mm3 (0.7-4.5); Lymphocytes % 16.8 % (10-50); Mean Corpuscular HGB Conc 33.6 g/dL (31.8-35.4); Mean Corpuscular Hemoglobin 31.9 pg (27.0-31.2); Mean Corpuscular Volume 94.8 fl (81-99); Mean Platelet Volume 7.5 fl (7.4-10.4); Monocytes # 0.8 K/mm3 (0.1-1.0); Monocytes % 5.3 % (1.7-9.3); Neutrophils # 11.4 K/mm3 (1.8-7.8); Neutrophils % 76.9 % (37.0-80.0); Platelet Count 446 K/mm3 (142-424); Red Blood Count 4.34 M/mm3 (4.20-5.40); Red Cell Distribution Width 13.4 % (11.5-17.5); White Blood Count 14.9 K/mm3 (4.8-10.8)
[2024-06-28 06:51] LABS: Chloride 109 mmol/L (98-107); Potassium 4.3 mmoL/L (3.5-5.1); Sodium 139 mmol/L (136-145)
[2024-06-28 06:53] LABS: Alanine Aminotransferase 22 U/L (12-78); Aspartate Amino Transferase 29 U/L (14-36); Blood Urea Nitrogen 14 mg/dl (7-17); Creatinine Clearance Estimated 42 mL/min (50-200); Estimated Glomerular Filt Rate 55 ml/min (>60); GFR (African American) 67 ML/MIN (>60)
[2024-06-28 06:54] LABS: Alkaline Phosphatase 74 U/L (38-126); Anion Gap 8.3 mEq/L (5-15); Bilirubin,Total 0.6 mg/dl (0.2-1.3); Calcium 8.4 mg/dl (8.4-10.2); Carbon Dioxide 26 mmol/L (22.0-30.0); Glucose 98 mg/dl (74-100); Magnesium 1.9 mg/dl (1.6-2.3); Phosphorous 3.8 mg/dl (2.5-4.5); Total Protein,Serum 6.5 g/dl (6.3-8.2)
[2024-06-28 08:00] VITALS: BP 131/92; PULSE 83; RESP 18; TEMP 36.9; O2SAT 97
[2024-06-28 08:16] LABS: Albumin Level 3.2 g/dl (3.5-5.0); Globulin 3.3 g/dL (1.3-3.2)
--- NOTE | 2024-06-28 08:50 | EXP.SURG.CON ---
History of Present Illness *Admission Date: 06/29/24 *Reason for visit:: Nausea and vomiting *History of present illness: Patient is a 64-year-old female who had presented to her primary care provider on 06/25/2024 with a 2-day history of increasing progressive abdominal pain. CT scan revealed findings consistent with perforated appendicitis. She had associated low-grade fevers. Dr. Barnes took her to the operating room on 06/25/2024 at which time she was found to have severe regional inflammatory changes with appendiceal necrosis and distal appendiceal perforation. There was no abscess noted. Appendectomy was able to be performed successfully laparoscopically. She remained an inpatient for couple days and was continued on IV antibiotics. She convalesced. White blood cell count improved to 16,900. She was discharged home on 06/27/2024 on oral antibiotics. After discharge she had been unable to tolerate her oral antibiotics and developed nausea with vomiting. She presented back to the emergency department. She was found to have a leukocytosis of 22,200. She underwent CT scan which revealed findings compatible with developing small bowel obstruction. Could not exclude mild changes of peritonitis. Small amount of free fluid in the left paracolic gutter as well as in the cul-de-sac. She was admitted for inpatient management. She did have a nasogastric tube placed. [facility] Disclaimer: The information contained in this section may have been updated after the patient was seen, as this information can be updated by other users. Medical History Arthritis Hyperlipidemia Surgical History H/O: hysterectomy Family History No significant family history Social History (Updated 06/27/24 @ 23:32 by Kimber Brumfield RN) Smoking Status: Former smoker tobacco type: cigarettes packs per day: 1 second hand exposure: Yes alcohol intake: never substance use type: denies use current occupational status: employed Travel in the last 8 weeks: None household members: spouse and children housing: house Meds Home Medications and Allergies Home Medications ?Medication ?Instructions ?Recorded ?Confirmed ?Type atorvastatin 20 mg tablet 20 mg PO HS 06/25/24 06/26/24 History losartan 50 mg tablet 50 mg PO DAILY 06/26/24 06/26/24 History amoxicillin 500 mg-potassium 1 tab PO TID #21 tabs 06/27/24 Rx clavulanate 125 mg tablet (Augmentin) hydrocodone 5 mg-acetaminophen 325 1 tab PO Q6H PRN post-op pain #13 06/27/24 Rx mg tablet tabs New Prescriptions to Start Prescriptions: Allergies Allergy/AdvReac Type Severity Reaction Status Date / Time No Known Allergies Allergy Unverified 06/25/24 13:07 Exam (Inpt) Vital signs and Labs for Last 24 Hours: Temp Pulse Resp BP Pulse Ox O2 Del Method 98.2 F 77 16 156/77 H 96 Room Air 06/28/24 04:00 06/28/24 04:00 06/28/24 04:00 06/28/24 04:00 06/28/24 04:00 06/28/24 07:00 Laboratory Results - last 24 hr 06/27/24 17:23: WBC 22.2 H* D, RBC 4.86, Hgb 15.2 D, Hct 45.7, MCV 94.1, MCH 31.4 H, MCHC 33.4, RDW 13.4, Plt Count 399, MPV 9.1, Neut % (Auto) 87.3 H, Lymph % (Auto) 7.9 L, [place] % (Auto) 4.7, Eos % (Auto) 0.2, Baso % (Auto) 0.4, Neut # (Auto) 19.4 H, Lymph # (Auto) 1.8, [place] # (Auto) 1.0, Eos # (Auto) 0.0, Baso # (Auto) 0.1, Total Counted 100, Neutrophils % (Manual) 83 H, Lymphocytes % (Manual) 13, Monocytes % (Manual) 4, Platelet Estimate Normal, RBC Morphology Normal, Sodium 140, Potassium 4.3, Chloride 106, Carbon Dioxide 26, Anion Gap 12.3, BUN 16, Creatinine 1.10 H, Estimated Creat Clear 38, Estimated GFR 50 L, Est GFR ( Amer) 60, Glucose 140 H D, Calcium 8.9, Total Bilirubin 0.8, AST 34, ALT 28, Alkaline Phosphatase 98, Total Protein 7.8, Albumin 4.0, Globulin 3.8 H, Albumin/Globulin Ratio 1.1, HIV 1&2 Antibody Rapid Nonreactive 06/27/24 17:29: Procalcitonin 1.38 06/28/24 06:27: WBC 14.9 H D, RBC 4.34, Hgb 13.8, Hct 41.2, MCV 94.8, MCH 31.9 H, MCHC 33.6, RDW 13.4, Plt Count 446 H, MPV 7.5, Neut % (Auto) 76.9, Lymph % (Auto) 16.8, [place] % (Auto) 5.3, Eos % (Auto) 0.7, Baso % (Auto) 0.3, Neut # (Auto) 11.4 H, Lymph # (Auto) 2.5, [place] # (Auto) 0.8, Eos # (Auto) 0.1, Baso # (Auto) 0.1, Sodium 139, Potassium 4.3, Chloride 109 H, Carbon Dioxide 26, Anion Gap 8.3, BUN 14, Creatinine 1.00, Estimated Creat Clear 42, Estimated GFR 55 L, Est GFR ( Amer) 67, Glucose 98 D, Calcium 8.4, Phosphorus 3.8, Magnesium 1.9, Total Bilirubin 0.6, AST 29, ALT 22, Alkaline Phosphatase 74, Total Protein 6.5, Albumin 3.2 L D, Globulin 3.3 H, Albumin/Globulin Ratio 1.0 L I & O for Labs for Last 24 Hours: Intake & Output 06/25/24 06/26/24 06/27/24 06/28/24 11:59 11:59 11:59 11:59 Output Total 0 / 0 Balance 0 / 0 Weight 236 lb 15.986 oz GI: Present distention Comments:: Abdomen somewhat distended. [place] sites healing well. Some tenderness right lateral abdomen without guarding or rebound. No peritonitis. Results Labs 06/28/24 06:27 06/28/24 06:27 Labs: Laboratory Results - last 24 hr 06/27/24 17:23: WBC 22.2 H* D, RBC 4.86, Hgb 15.2 D, Hct 45.7, MCV 94.1, MCH 31.4 H, MCHC 33.4, RDW 13.4, Plt Count 399, MPV 9.1, Neut % (Auto) 87.3 H, Lymph % (Auto) 7.9 L, [place] % (Auto) 4.7, Eos % (Auto) 0.2, Baso % (Auto) 0.4, Neut # (Auto) 19.4 H, Lymph # (Auto) 1.8, [place] # (Auto) 1.0, Eos # (Auto) 0.0, Baso # (Auto) 0.1, Total Counted 100, Neutrophils % (Manual) 83 H, Lymphocytes % (Manual) 13, Monocytes % (Manual) 4, Platelet Estimate Normal, RBC Morphology Normal, Sodium 140, Potassium 4.3, Chloride 106, Carbon Dioxide 26, Anion Gap 12.3, BUN 16, Creatinine 1.10 H, Estimated Creat Clear 38, Estimated GFR 50 L, Est GFR ( Amer) 60, Glucose 140 H D, Calcium 8.9, Total Bilirubin 0.8, AST 34, ALT 28, Alkaline Phosphatase 98, Total Protein 7.8, Albumin 4.0, Globulin 3.8 H, Albumin/Globulin Ratio 1.1, HIV 1&2 Antibody Rapid Nonreactive 06/27/24 17:29: Procalcitonin 1.38 06/28/24 06:27: WBC 14.9 H D, RBC 4.34, Hgb 13.8, Hct 41.2, MCV 94.8, MCH 31.9 H, MCHC 33.6, RDW 13.4, Plt Count 446 H, MPV 7.5, Neut % (Auto) 76.9, Lymph % (Auto) 16.8, [place] % (Auto) 5.3, Eos % (Auto) 0.7, Baso % (Auto) 0.3, Neut # (Auto) 11.4 H, Lymph # (Auto) 2.5, [place] # (Auto) 0.8, Eos # (Auto) 0.1, Baso # (Auto) 0.1, Sodium 139, Potassium 4.3, Chloride 109 H, Carbon Dioxide 26, Anion Gap 8.3, BUN 14, Creatinine 1.00, Estimated Creat Clear 42, Estimated GFR 55 L, Est GFR ( Amer) 67, Glucose 98 D, Calcium 8.4, Phosphorus 3.8, Magnesium 1.9, Total Bilirubin 0.6, AST 29, ALT 22, Alkaline Phosphatase 74, Total Protein 6.5, Albumin 3.2 L D, Globulin 3.3 H, Albumin/Globulin Ratio 1.0 L Assessment and Plan *Assessment and plan (1) Postoperative ileus: Status: Acute Category: Medical Code(s): K91.89 - Other postprocedural complications and disorders of digestive system; K56.7 - Ileus, unspecified Plan Likely postoperative ileus. Doubt mechanical obstruction. At this time plan for nonoperative management with nasogastric decompression and bowel rest with IV fluids and IV antibiotics. Given the difficulty in placement of nasogastric tube continue nasogastric tube for now. I did explain to her there is a possibility of the need for surgical intervention such as development of bowel obstruction or leak although this seems unlikely at this time. There is also the possibility of ultimate development of abscess in the future.
[2024-06-28] MEDS: ENOXAPARIN 40MG/0.4ML SYRINGE 40 MG SUBCUT ×2 (08:59→20:29)
[2024-06-28] MEDS: FAMOTIDINE 20MG/2ML VIAL 20 MG IV ×2 (08:59→20:29)
[2024-06-28] MEDS: 0.9 % SODIUM CHLORIDE 1000ML 1,000 ML 100 ML IV (09:00)
[2024-06-28] MEDS: PIPERCILLIN/TAZO 3.375 GM in 0.9 % SODIUM CHLORIDE 50 ML IV ×2 (09:00→16:24)
--- NOTE | 2024-06-28 09:37 | P.PN_ITS ---
Subjective *Date: 06/28/24 *Time: 18:05 Interval history: Patient feeling somewhat better this morning. No further nausea or vomiting after placement of NG tube. No bowel movement yet as of morning rounds. Denies chest pain. Stable on room air. Medical Exam Vital signs and Labs for Last 24 Hours: Vital Signs Temp Pulse Pulse Resp BP BP Pulse Ox 06/28/24 08:00 06/28/24 08:00 98.4 F 83 18 131/92 H 97 06/28/24 07:00 06/28/24 05:00 06/28/24 04:00 98.2 F 77 16 156/77 H 96 06/28/24 03:00 06/28/24 01:00 06/28/24 00:00 98.1 F 72 16 157/92 H 95 06/27/24 23:30 06/27/24 23:00 06/27/24 21:46 83 187/101 H 96 06/27/24 21:45 97.9 F 87 18 174/101 H 06/27/24 21:34 91 H 195/101 H 95 06/27/24 20:31 80 174/101 H 95 06/27/24 20:16 83 155/94 H 95 06/27/24 20:01 89 155/93 H 95 06/27/24 19:46 87 164/91 H 92 L 06/27/24 19:31 79 160/94 H 95 06/27/24 19:16 81 165/94 H 96 06/27/24 18:45 78 154/92 H 97 06/27/24 18:31 82 157/84 H 94 L 06/27/24 18:15 80 164/88 H 93 L 06/27/24 18:00 76 145/84 H 93 L 06/27/24 17:45 79 147/86 H 93 L 06/27/24 17:31 77 157/64 H 94 L 06/27/24 17:23 95 H 137/79 95 06/27/24 17:11 98.0 F 88 18 137/79 96 O2 Del Method 06/28/24 08:00 Room Air 06/28/24 08:00 Room Air 06/28/24 07:00 Room Air 06/28/24 05:00 Room Air 06/28/24 04:00 Room Air 06/28/24 03:00 Room Air 06/28/24 01:00 Room Air 06/28/24 00:00 Room Air 06/27/24 23:30 Room Air 06/27/24 23:00 Room Air 06/27/24 21:46 06/27/24 21:45 Room Air 06/27/24 21:34 06/27/24 20:31 06/27/24 20:16 06/27/24 20:01 06/27/24 19:46 06/27/24 19:31 06/27/24 19:16 06/27/24 18:45 06/27/24 18:31 06/27/24 18:15 06/27/24 18:00 06/27/24 17:45 06/27/24 17:31 06/27/24 17:23 06/27/24 17:11 Room Air Intake and Output 06/27/24 06/28/24 06/28/24 23:59 07:59 15:59 Output Total 0 / 0 Balance 0 / 0 Output: Output, Urine Amount 0 / 0 Other: Number of Unmeasured Voids 2 2 Weight 107.501 kg 107.501 kg Patient Weight 06/28/24 23:59 Weight 107.501 kg Laboratory Results - last 24 hr 06/27/24 17:23: WBC 22.2 H* D, RBC 4.86, Hgb 15.2 D, Hct 45.7, MCV 94.1, MCH 31.4 H, MCHC 33.4, RDW 13.4, Plt Count 399, MPV 9.1, Neut % (Auto) 87.3 H, Lymph % (Auto) 7.9 L, [place] % (Auto) 4.7, Eos % (Auto) 0.2, Baso % (Auto) 0.4, Neut # (Auto) 19.4 H, Lymph # (Auto) 1.8, [place] # (Auto) 1.0, Eos # (Auto) 0.0, Baso # (Auto) 0.1, Total Counted 100, Neutrophils % (Manual) 83 H, Lymphocytes % (Manual) 13, Monocytes % (Manual) 4, Platelet Estimate Normal, RBC Morphology Normal, Sodium 140, Potassium 4.3, Chloride 106, Carbon Dioxide 26, Anion Gap 12.3, BUN 16, Creatinine 1.10 H, Estimated Creat Clear 38, Estimated GFR 50 L, Est GFR ( Amer) 60, Glucose 140 H D, Calcium 8.9, Total Bilirubin 0.8, AST 34, ALT 28, Alkaline Phosphatase 98, Total Protein 7.8, Albumin 4.0, Globulin 3.8 H, Albumin/Globulin Ratio 1.1, HIV 1&2 Antibody Rapid Nonreactive 06/27/24 17:29: Procalcitonin 1.38 06/28/24 06:27: WBC 14.9 H D, RBC 4.34, Hgb 13.8, Hct 41.2, MCV 94.8, MCH 31.9 H , MCHC 33.6, RDW 13.4, Plt Count 446 H, MPV 7.5, Neut % (Auto) 76.9, Lymph % (Auto) 16.8, [place] % (Auto) 5.3, Eos % (Auto) 0.7, Baso % (Auto) 0.3, Neut # (Auto) 11.4 H, Lymph # (Auto) 2.5, [place] # (Auto) 0.8, Eos # (Auto) 0.1, Baso # (Auto) 0.1, Sodium 139, Potassium 4.3, Chloride 109 H, Carbon Dioxide 26, Anion Gap 8.3, BUN 14, Creatinine 1.00, Estimated Creat Clear 42, Estimated GFR 55 L, Est GFR ( Amer) 67, Glucose 98 D, Calcium 8.4, Phosphorus 3.8, Magnesium 1.9, Total Bilirubin 0.6, AST 29, ALT 22, Alkaline Phosphatase 74, Total Protein 6.5, Albumin 3.2 L D, Globulin 3.3 H, Albumin/Globulin Ratio 1.0 L I & O for Labs for Last 24 Hours: Intake & Output 06/25/24 06/26/24 06/27/24 06/28/24 23:59 23:59 23:59 23:59 Output Total 0 / 0 Balance 0 / 0 Weight 107.501 kg 107.501 kg Constitutional: Present no acute distress, morbidly obese, chronically ill appearing and cooperative Head: Present atraumatic and normocephalic ENT: Present normal exam Comment:: NG in left nare Respiratory: Present normal respiratory effort; Absent rhonchi, wheezes or crackles Cardiac: Present Reg Rate and Rhythm GI: Present soft and diminished bowel sounds; Absent distention or tenderness Extremities: Present normal inspection and full ROM Skin: Present intact; Absent erythema Neuro: Present Grossly Intact, alert, awake, oriented x 3 and moves all extremities Assessment and Plan *Assessment and plan (1) Postoperative ileus: Status: Acute Category: Medical Code(s): K91.89 - Other postprocedural complications and disorders of digestive system; K56.7 - Ileus, unspecified (2) Hypertension: Status: Acute Category: Medical Code(s): I10 - Essential (primary) hypertension (3) Class 3 obesity: Status: Chronic Category: Medical Code(s): E66.813 - Obesity, class 3 Plan Amada Stallings is a 64-year-old female with a medical with medical history significant for hypertension, hyperlipidemia who returns to the ED after nausea/vomiting and inability to tolerate oral intake. She underwent a laparoscopic appendectomy for perforated/gangrenous appendicitis on 06/25/2024. She progressed well during the hospital course, however fortunately has not done well at home after being discharged today. She states she is unable to tolerate oral intake. Denies abdominal pain, fever/chills. Workup in the ED significant for WBC 22.2, CT abdomen/pelvis suggested SBO. ED consulted general surgery who recommended admission with IV antibiotics. Case discussed with ED provider and decision was made to admit patient for postoperative ileus/SBO. Feeling somewhat better today. Will monitor for bowel movement. Advance diet to clears if has BM or passing gas. NG to stay in place. Continues to require patient management. Problems addressed as follows: #Postoperative ileus versus SBO #Leukocytosis #Recent laparoscopic appendectomy ? Underwent a laparoscopic appendectomy for perforated/gangrenous appendicitis on 06/25/2024. ? NG tube remains in place. Intermittent suction. Okay to For ambulation to promote bowel movements. - Continue Zosyn 3.375 grams every 8 hours. ? General Surgery consulted, discussed case this morning, recommend continuing NG with bowel rest. Monitor for BM and gas. Consider advancement if has BM. ? IV famotidine 20 mg twice daily for GI prophylaxis. -White count elevated at 15. Kidney function normal BUN 14, creatinine 1. Repeat CBC, CMP, magnesium ordered for the morning #Hypertension: Resume ARB, irbesartan as formulary conversion 75 mg daily Full code DVT prophylaxis: SCDs. Prophylactic Lovenox
--- NOTE | 2024-06-28 09:43 | HMH.PHAINT1 ---
Pharmacy Intervention Comments: MEDICATION RECONCILIATION COMPLETED ON PATIENT USING EXTERNAL FILL HISTORY FROM PHARMACY. -JACKY MENDOZA, NILDAD
[2024-06-28 12:00] VITALS: BP 158/75; PULSE 74; RESP 18; TEMP 36.7; O2SAT 97
[2024-06-28 16:00] VITALS: BP 161/78; PULSE 83; RESP 16; TEMP 36.6; O2SAT 95
--- NOTE | 2024-06-28 16:52 | PC.NURSE ---
A&OX4. TOLERATING RA WELL. PATIENT REMAINS NPO TODAY, WITH NG TUBE TO L NARE AT 55CM. THERE HAS BEEN NO OUTPUT FROM NG THIS SHIFT. CHECKED PLACEMENT, VERIFIED PER AUSCULTATION. PATIENT UP INDEPENDENTLY TO BATHROOM. HAD A MODERATE SIZED BM TODAY. DOES HAVE BOWEL SOUNDS. ALSO AMBULATED AROUND FLOOR X1, TOLERATED VERY WELL. PATIENT HAS HAD NO C/O PAIN OR NAUSEA THUS FAR. FMAILY REMAINS AT BEDSIDE T/O SHIFT. VSS.
[2024-06-28 20:00] VITALS: BP 152/78; PULSE 78; RESP 18; TEMP 36.7; O2SAT 95
[2024-06-28] MEDS: SODIUM CHLORIDE 0.9% 10ML VIAL 8 ML IV (20:29)
[2024-06-29] VITALS: BP 139/80; PULSE 84; RESP 16; TEMP 36.9; O2SAT 92
[2024-06-29] MEDS: PIPERCILLIN/TAZO 3.375 GM in 0.9 % SODIUM CHLORIDE 50 ML IV ×4 (00:27→22:36)
[2024-06-29] MEDS: PHENOL THROAT SPRAY 177 ML BOTTLE MM (00:27)
[2024-06-29 04:00] VITALS: BP 163/89; PULSE 79; RESP 16; TEMP 36.7; O2SAT 94; BMI 47.0
--- NOTE | 2024-06-29 05:42 | P.EN_ITS ---
Patient complains of headache and not feeling well nurse been taking care of her felt that her abdomen was slightly more bloated, could not use 1000 mg of IV Tylenol so. do not have to worry about absorption see if it will help her headache also her blood pressure slightly up hopefully this making her feel better the blood pressure will come down on its own there was not much return fr om the NG placed it on continuous wall suction some clear green fluid noted in the tubing. It has been noted the patient had been taking clear liquids tonight without any adverse effect
[2024-06-29] MEDS: ACETAMINOPHEN 1,000MG/100ML VIAL 1000 MG IV (05:45)
[2024-06-29] MEDS: 0.9 % SODIUM CHLORIDE 1000ML 1,000 ML 100 ML IV (05:45)
--- NOTE | 2024-06-29 06:58 | PC.NURSE ---
Pt is alert and oriented x4. Pt NG remains in L nare @55. pt did tolerate clear fluids for the most part of the shift, however reported bloating @ approx 0400, Pt abd is slightly distended compared to initial assessment. This nurse contacted LIANA Boland and was advised to connect pt to low wall suction for the remainder of this shift to give pt relief. Pt also c/o headache and was treated per SEP.
[2024-06-29 07:19] LABS: Basophils # 0.1 K/mm3 (0-0.2); Basophils % 0.5 % (0.1-2.0); Eosinophils # 0.1 K/mm3 (0.0-0.4); Eosinophils % 0.7 % (0.1-12.0); Hematocrit 38.4 % (37.0-47.0); Hemoglobin 12.7 g/dL (12.2-16.2); Lymphocytes # 2.4 K/mm3 (0.7-4.5); Lymphocytes % 20.4 % (10-50); Mean Corpuscular Hemoglobin 30.6 pg (27.0-31.2); Mean Corpuscular Volume 92.8 fl (81-99); Mean Platelet Volume 7.6 fl (7.4-10.4); Monocytes # 0.8 K/mm3 (0.1-1.0); Monocytes % 6.8 % (1.7-9.3); Neutrophils # 8.5 K/mm3 (1.8-7.8); Neutrophils % 71.7 % (37.0-80.0); Platelet Count 467 K/mm3 (142-424); Red Blood Count 4.14 M/mm3 (4.20-5.40); Red Cell Distribution Width 13.3 % (11.5-17.5); White Blood Count 11.8 K/mm3 (4.8-10.8)
[2024-06-29 07:32] LABS: Chloride 107 mmol/L (98-107); Sodium 136 mmol/L (136-145)
[2024-06-29 07:33] LABS: Potassium 3.9 mmoL/L (3.5-5.1)
[2024-06-29 07:35] LABS: Alanine Aminotransferase 20 U/L (12-78); Anion Gap 7.9 mEq/L (5-15); Aspartate Amino Transferase 31 U/L (14-36); Blood Urea Nitrogen 13 mg/dl (7-17); Carbon Dioxide 25 mmol/L (22.0-30.0); Creatinine Clearance Estimated 42 mL/min (50-200); Estimated Glomerular Filt Rate 55 ml/min (>60); GFR (African American) 67 ML/MIN (>60)
[2024-06-29 07:36] LABS: Alkaline Phosphatase 70 U/L (38-126); Bilirubin,Total 0.6 mg/dl (0.2-1.3); Globulin 3.1 g/dL (1.3-3.2); Glucose 80 mg/dl (74-100); Magnesium 1.7 mg/dl (1.6-2.3); Phosphorous 3.4 mg/dl (2.5-4.5); Total Protein,Serum 6.1 g/dl (6.3-8.2)
[2024-06-29 08:00] VITALS: BP 161/89; PULSE 71; RESP 16; TEMP 36.6; O2SAT 94
[2024-06-29 09:24] LABS: HCV Ab Non Reactive (Non Reactive)
--- NOTE | 2024-06-29 09:35 | EXP.SURG.PN ---
Subjective Narrative: Patient did have a bowel movement yesterday. Her NG tube was clamped and she was given some clear liquids. She states that she subsequently had developed some increasing distention and had her nasogastric tube reattached to suction which gave her some relief. She has not recently been passing gas. Exam Data for Last 24 hours Vital signs and Labs for Last 24 Hours: Temp Pulse Resp BP Pulse Ox O2 Del Method 98 F 71 16 161/89 H 94 L Room Air 06/29/24 08:00 06/29/24 08:00 06/29/24 08:00 06/29/24 08:00 06/29/24 08:00 06/29/24 06:57 Laboratory Results - last 24 hr 06/27/24 17:23: Hepatitis C Antibody Non reactive 06/29/24 06:41: WBC 11.8 H, RBC 4.14 L, Hgb 12.7, Hct 38.4, MCV 92.8, MCH 30.6, MCHC 33.0, RDW 13.3, Plt Count 467 H, MPV 7.6, Neut % (Auto) 71.7, Lymph % (Auto) 20.4, [place] % (Auto) 6.8, Eos % (Auto) 0.7, Baso % (Auto) 0.5, Neut # (Auto) 8.5 H, Lymph # (Auto) 2.4, [place] # (Auto) 0.8, Eos # (Auto) 0.1, Baso # (Auto) 0.1, Sodium 136, Potassium 3.9, Chloride 107, Carbon Dioxide 25, Anion Gap 7.9, BUN 13, Creatinine 1.00, Estimated Creat Clear 42, Estimated GFR 55 L, Est GFR ( Amer) 67, Glucose 80, Calcium 8.0 L, Phosphorus 3.4, Magnesium 1.7 D, Total Bilirubin 0.6, AST 31, ALT 20, Alkaline Phosphatase 70, Total Protein 6.1 L, Albumin 3.0 L, Globulin 3.1, Albumin/Globulin Ratio 1.0 L I & O for Last 24 hours: Intake & Output 06/26/24 06/27/24 06/28/24 06/29/24 11:59 11:59 11:59 11:59 Intake Total 530 / 530 Output Total 0 / 0 0 / 0 Balance 0 / 0 530 / 530 Weight 236 lb 15.986 oz 248 lb 12.8 oz *Routine Abdominal Exam Comments: Abdomen is somewhat distended with right-sided tenderness. Progress Note: A&P Assessment and plan (1) Postoperative ileus: Status: Acute Assessment and plan: Given her inability to tolerate nasogastric tube clamped continue nasogastric suction for now. No need for surgical intervention at this time. (2) Hypertension: Status: Acute (3) Class 3 obesity: Status: Chronic
[2024-06-29] MEDS: IRBESARTAN 75MG TABLET 75 MG PO ×2 (10:37→16:51)
[2024-06-29] MEDS: ENOXAPARIN 40MG/0.4ML SYRINGE 40 MG SUBCUT ×2 (10:37→20:04)
[2024-06-29] MEDS: FAMOTIDINE 20MG/2ML VIAL 20 MG IV ×2 (10:37→20:04)
--- NOTE | 2024-06-29 11:18 | EXP.ACUTE.PN ---
Subjective *Date: 06/29/24 *Time: 16:59 Interval history: [place] bloated overnight. On rounds however states that she had a bowel movement this morning. Had not had it at the time surgery evaluated her. No mary emesis. Tolerating clear liquids. Ambulating independently. Discussed leaving NG in place. Stable on room air. Medical Exam Vital signs and Labs for Last 24 Hours: Vital Signs Temp Pulse Resp BP Pulse Ox O2 Del Method 06/29/24 09:52 Room Air 06/29/24 09:00 Room Air 06/29/24 08:00 98 F 71 16 161/89 H 94 L 06/29/24 06:57 Room Air 06/29/24 04:52 Room Air 06/29/24 04:00 98.0 F 79 16 163/89 H 94 L Room Air 06/29/24 03:00 Room Air 06/29/24 01:00 Room Air 06/29/24 00:00 98.4 F 84 16 139/80 92 L Room Air 06/28/24 23:00 Room Air 06/28/24 21:00 Room Air 06/28/24 20:00 Room Air 06/28/24 20:00 98.0 F 78 18 152/78 H 95 Room Air 06/28/24 18:56 Room Air 06/28/24 16:50 Room Air 06/28/24 16:00 98 F 83 16 161/78 H 95 Room Air 06/28/24 15:00 Room Air 06/28/24 13:00 Room Air 06/28/24 12:00 98.1 F 74 18 158/75 H 97 Room Air Intake and Output 06/28/24 06/29/24 06/29/24 23:59 07:59 15:59 Intake Total 530 / 530 Output Total 0 / 0 0 / 0 Balance 0 / 530 530 / 530 Intake: Intake, Oral Amount 480 / 480 Intake, Total IV Amount 50 / 50 Pipercillin/Tazo 3.375 gm In 0. 50 / 50 9 % Sodium Chloride 50 ml @ 100 mls/hr IV Q8H [facility] Rx#:[id number] Output: Output, Urine Amount 0 / 0 0 / 0 Other: Number of Unmeasured Voids 1 1 Weight 112.854 kg Patient Weight 06/29/24 23:59 Weight 112.854 kg Laboratory Results - last 24 hr 06/27/24 17:23: Hepatitis C Antibody Non reactive 06/29/24 06:41: WBC 11.8 H, RBC 4.14 L, Hgb 12.7, Hct 38.4, MCV 92.8, MCH 30.6, MCHC 33.0, RDW 13.3, Plt Count 467 H, MPV 7.6, Neut % (Auto) 71.7, Lymph % (Auto) 20.4, [place] % (Auto) 6.8, Eos % (Auto) 0.7, Baso % (Auto) 0.5, Neut # (Auto) 8.5 H, Lymph # (Auto) 2.4, [place] # (Auto) 0.8, Eos # (Auto) 0.1, Baso # (Auto) 0.1, Sodium 136, Potassium 3.9, Chloride 107, Carbon Dioxide 25, Anion Gap 7.9, BUN 13, Creatinine 1.00, Estimated Creat Clear 42, Estimated GFR 55 L, Est GFR ( Amer) 67, Glucose 80, Calcium 8.0 L, Phosphorus 3.4, Magnesium 1.7 D, Total Bilirubin 0.6, AST 31, ALT 20, Alkaline Phosphatase 70, Total Protein 6.1 L, Albumin 3.0 L, Globulin 3.1, Albumin/Globulin Ratio 1.0 L I & O for Labs for Last 24 Hours: Intake & Output 06/26/24 06/27/24 06/28/24 06/29/24 23:59 23:59 23:59 23:59 Intake Total 530 / 530 Output Total 0 / 0 0 / 0 Balance 0 / 530 530 / 530 Weight 107.501 kg 107.501 kg 112.854 kg Constitutional: Present no acute distress, morbidly obese, chronically ill appearing and cooperative Head: Present atraumatic and normocephalic ENT: Present normal exam Comment:: NG in left nare Respiratory: Present normal respiratory effort; Absent rhonchi, wheezes or crackles Cardiac: Present Reg Rate and Rhythm GI: Present soft, tenderness (Mild, nonfocal) and normal bowel sounds; Absent distention Extremities: Present normal inspection and full ROM Skin: Present intact; Absent erythema Neuro: Present Grossly Intact, alert, awake, oriented x 3 and moves all extremities Assessment and Plan *Assessment and plan (1) Postoperative ileus: Status: Acute Category: Medical Code(s): K91.89 - Other postprocedural complications and disorders of digestive system; K56.7 - Ileus, unspecified (2) Hypertension: Status: Acute Category: Medical Code(s): I10 - Essential (primary) hypertension (3) Class 3 obesity: Status: Chronic Category: Medical Code(s): E66.813 - Obesity, class 3 Plan Amada Stallings is a 64-year-old female with a medical with medical history significant for hypertension, hyperlipidemia who returns to the ED after nausea/vomiting and inability to tolerate oral intake. She underwent a laparoscopic appendectomy for perforated/gangrenous appendicitis on 06/25/2024. Had episode of bloating and pain and nausea and vomiting after discharge. Having bowel movements at this time. Slow advancement of diet. Surgery assisting with care. Continue inpatient management. Problems addressed as follows: #Postoperative ileus versus SBO #Leukocytosis #Recent laparoscopic appendectomy ? Underwent a laparoscopic appendectomy for perforated/gangrenous appendicitis on 06/25/2024. ? NG tube remains in place. Intermittent suction. Okay to ambulation to promote bowel movements. - Continue Zosyn 3.375 grams every 8 hours. ? General Surgery consulted, discussed case this morning, recommend continuing NG. Clamped today. Continue clear diet. Having daily bowel movements. Though complained of bloating today. Slow advancement. ? IV famotidine 20 mg twice daily for GI prophylaxis. -White count improved this morning at 12, still marginally elevated. Kidney function normal with BUN 13, creatinine 1. Repeat CBC, CMP, magnesium ordered for the morning. #Hypertension: Remains elevated. Increase irbesartan to 150 mg daily Full code DVT prophylaxis: SCDs. Prophylactic Lovenox
[2024-06-29] MEDS: MAGNESIUM SULFATE IN WATER 2 GM/50 ML PIGGYBACK IV ×2 (11:36→13:05)
[2024-06-29] MEDS: POLYETHYLENE GLYCOL 3350 17 GM PACKET PO (11:52)
[2024-06-29 12:00] VITALS: BP 174/90; PULSE 71; RESP 18; TEMP 36.7; O2SAT 96
--- NOTE | 2024-06-29 15:02 | PC.NURSE ---
Pt. is aox 4, up ad raz, had a bowl movement this am, NG Left nostril clamped, 90's on RA, 20G L ac sl, consult to DR. Dia, now on full liquid diet. Abd incisions times 3 c/d/i.
[2024-06-29 16:00] VITALS: BP 182/92; PULSE 74; RESP 16; TEMP 36.8; O2SAT 96
--- NOTE | 2024-06-29 16:04 | PC.NURSE ---
. aware pt's bp of 182/92 p: 74.
[2024-06-29 19:04] VITALS: BMI 47.0
[2024-06-29 20:00] VITALS: BP 170/98; PULSE 76; RESP 20; TEMP 37.2; O2SAT 95
[2024-06-29] MEDS: SODIUM CHLORIDE 0.9% 10ML VIAL 8 ML IV (20:03)
--- NOTE | 2024-06-29 23:17 | PC.NURSE ---
tape to pt NG nose replaced to better secure NG. NG remains @55 and is clamped at this time. Pt IV to left AC became infiltrated and was removed. New IV placed to right wrist. Pt tolerated well.
[2024-06-30] VITALS: BP 154/97; PULSE 78; RESP 16; TEMP 37.1; O2SAT 93
[2024-06-30 04:00] VITALS: BP 166/93; PULSE 75; RESP 16; TEMP 36.7; O2SAT 94; BMI 47.0
[2024-06-30] MEDS: PIPERCILLIN/TAZO 3.375 GM in 0.9 % SODIUM CHLORIDE 50 ML IV ×4 (05:30→22:46)
--- NOTE | 2024-06-30 07:17 | EXP.SURG.PN ---
Subjective Patient reports: feels better Narrative: Patient feels better. Has been having some liquid bowel movements. HER nasogastric tube was clamped and she has been tolerating full liquid diet. Exam Data for Last 24 hours Vital signs and Labs for Last 24 Hours: Temp Pulse Resp BP Pulse Ox O2 Del Method 98.0 F 75 16 166/93 H 94 L Room Air 06/30/24 04:00 06/30/24 04:00 06/30/24 04:00 06/30/24 04:00 06/30/24 04:00 06/30/24 04:00 Laboratory Results - last 24 hr 06/27/24 17:23: Hepatitis C Antibody Non reactive 06/29/24 06:41: WBC 11.8 H, RBC 4.14 L, Hgb 12.7, Hct 38.4, MCV 92.8, MCH 30.6, MCHC 33.0, RDW 13.3, Plt Count 467 H, MPV 7.6, Neut % (Auto) 71.7, Lymph % (Auto) 20.4, [place] % (Auto) 6.8, Eos % (Auto) 0.7, Baso % (Auto) 0.5, Neut # (Auto) 8.5 H, Lymph # (Auto) 2.4, [place] # (Auto) 0.8, Eos # (Auto) 0.1, Baso # (Auto) 0.1, Sodium 136, Potassium 3.9, Chloride 107, Carbon Dioxide 25, Anion Gap 7.9, BUN 13, Creatinine 1.00, Estimated Creat Clear 42, Estimated GFR 55 L, Est GFR ( Amer) 67, Glucose 80, Calcium 8.0 L, Phosphorus 3.4, Magnesium 1.7 D, Total Bilirubin 0.6, AST 31, ALT 20, Alkaline Phosphatase 70, Total Protein 6.1 L, Albumin 3.0 L, Globulin 3.1, Albumin/Globulin Ratio 1.0 L I & O for Last 24 hours: Intake & Output 06/27/24 06/28/24 06/29/24 06/30/24 11:59 11:59 11:59 11:59 Intake Total 1080 / 1080 Output Total 0 / 0 0 / 0 0 / 0 Balance 0 / 0 1080 / 1080 0 / 0 Weight 236 lb 15.986 oz 248 lb 12.8 oz 248 lb 12.807 oz *Routine Abdominal Exam Abdominal: Present soft Comments: Slightly distended. Some right lower quadrant tenderness. Progress Note: A&P Assessment and plan (1) Postoperative ileus: Status: Acute Assessment and plan: DC NG tube (2) Hypertension: Status: Acute (3) Class 3 obesity: Status: Chronic
[2024-06-30 07:23] LABS: Basophils # 0.1 K/mm3 (0-0.2); Basophils % 0.4 % (0.1-2.0); Eosinophils # 0.1 K/mm3 (0.0-0.4); Eosinophils % 0.7 % (0.1-12.0); Hematocrit 39.7 % (37.0-47.0); Hemoglobin 13.6 g/dL (12.2-16.2); Lymphocytes # 2.5 K/mm3 (0.7-4.5); Lymphocytes % 18.8 % (10-50); Mean Corpuscular HGB Conc 34.3 g/dL (31.8-35.4); Mean Corpuscular Hemoglobin 31.5 pg (27.0-31.2); Mean Platelet Volume 7.5 fl (7.4-10.4); Monocytes # 0.8 K/mm3 (0.1-1.0); Monocytes % 6.1 % (1.7-9.3); Neutrophils % 74.1 % (37.0-80.0); Platelet Count 490 K/mm3 (142-424); Red Blood Count 4.31 M/mm3 (4.20-5.40); Red Cell Distribution Width 13.2 % (11.5-17.5); White Blood Count 13.4 K/mm3 (4.8-10.8)
[2024-06-30 07:27] LABS: Alanine Aminotransferase 21 U/L (12-78); Albumin Level 3.3 g/dl (3.5-5.0); Alkaline Phosphatase 82 U/L (38-126); Anion Gap 10.5 mEq/L (5-15); Aspartate Amino Transferase 32 U/L (14-36); Bilirubin,Total 0.6 mg/dl (0.2-1.3); Blood Urea Nitrogen 9 mg/dl (7-17); Calcium 8.7 mg/dl (8.4-10.2); Carbon Dioxide 30 mmol/L (22.0-30.0); Chloride 101 mmol/L (98-107); Creatinine Clearance Estimated 42 mL/min (50-200); Estimated Glomerular Filt Rate 55 ml/min (>60); GFR (African American) 67 ML/MIN (>60); Globulin 3.2 g/dL (1.3-3.2); Glucose 87 mg/dl (74-100); Phosphorous 3.9 mg/dl (2.5-4.5); Potassium 3.5 mmoL/L (3.5-5.1); Sodium 138 mmol/L (136-145); Total Protein,Serum 6.5 g/dl (6.3-8.2)
[2024-06-30 07:52] VITALS: BP 163/84; PULSE 77; RESP 18; TEMP 36.9; O2SAT 93
--- NOTE | 2024-06-30 07:52 | PC.NURSE ---
TECH NOTE; NURSE NOTIFIED OF BLOOD PRESSURE FOR 0800 VITAL SIGNS Natalya STEPHEN, SRNA
--- OUTSIDE RECORDS SUMMARY | 2024-06-30 08:14 | XMS_ITS | Encounter Summary ---
Author Organization [facility] yste Address [address] [place] [address] Care Team Providers Care Hang Gliding Instructor Name Role Phone Unavailable Primary Care Provider Unavailabl e Encounter Details Date Type Department Care Team (Late st Contact Info) Description 03/13/2014 10:12 AM EDT - 03/13/2014 11:59 PM EDT Hospital Encounter [facility] [address] [address] Murali Dangelo MD [address] [place] [address] Social History Tobacco Use Types Packs/Day Years [...] EDT) Glucose 88 70 - 100 mg/dL [facility] BUN 15 9 - 23 mg/dL [facility] Creatinine 0.9 0.6 - 1.3 mg/dL [facility] Sodium 139 132 - 146 mmol/L [facility] Potassium 4.5 3.5 - 5.5 mmol/L [facility] Chloride 98(L) 99 - 109 mmol/L [facility] CO2 31 20 - 31 mmol/L [facility] Calcium 10.0 8.7 - 10.4 mg/dL [facility] eGFR 65 ml/min/1.7 32 [facility] Comment: DF by IF @ 03/13/2014 13:03 ?? National Kidney [employer] Guidelines ?Stage ? Description ?GFR ?1 ?Normal or High ? 90+ ?2 ?Mild decrease ? 60-89 ?3 ?Moderate decrease ?30-59 ?4 ?Severe decrease ?15-29 ?5 ?Kidney failure ?<15 Anion Gap 10 3 - 11 mmol/L [facility] Blood specimen (specimen) 03/13/2014 10:14 AM EDT Narrative [facility] - 03/13/2014 1:03 PM EDT Specimen Type: Blood us Murali Dangelo MD LAB BLOOD ORDERABLES Final Result [facility] [address] [id number], * (ABNORMAL) CBC and Differential (03/13/2014 10:14 AM EDT) WBC 9.90 3.50 - 10.80 K/mcL [facility] RBC 4.81 3.89 - 5.14 [facility] Hemoglobin 14.7 11.5 - 15.5 g/dL [facility] Hematocrit 43.9 34.5 - 44.0 % [facility] MCV 91.3 80.0 - 99.0 fL [facility] MCH 30.6 27.0 - 31.0 pg [facility] MCHC 33.5 32.0 - 36.0 g/dL [facility] RDW-CV 12.9 11.3 - 14.5 % [facility] Platelets 427 150 - 450 [facility] Neutrophils Absolute 6.07 1.50 - 8.30 [facility] Lymphocytes Absolute 3.20 0.60 - 4.80 [facility] Monocytes Absolute 0.59 0.00 - 1.00 [facility] Eosinophils Absolute 0.00(L) 0.10 - 0.30 [facility] Basophils Absolute 0.02 0.00 - 0.20 [facility] Neutrophil Rel % 61.3 41.0 - 71.0 % [facility] Lymphocyte Rel % 32.3 24.0 - 44.0 % [facility] Monocyte Rel % 6.0 0.0 - 12.0 % [facility] Eosinophil Rel % 0.0 0.0 - 3.0 % [facility] Basophil Rel % 0.2 0.0 - 1.0 % [facility] Immature Granulocyte Rel % 0.2 0.0 - 0.6 % [facility] Blood specimen (specimen) 03/13/2014 10:14 AM EDT Narrative [facility] - 03/13/2014 12:28 PM EDT Specimen Type: Blood Murali Dangelo MD LAB BLOOD ORDERABLES Final Result [facility] [address] [place] [address], documented in this encounter Visit Diagnoses Not on filedocumented in this encounter
--- OUTSIDE RECORDS SUMMARY | 2024-06-30 08:14 | XMS_ITS | Encounter Summary ---
Author Organization [facility] Address [address] [place] [address] Care Team Providers Care Leather Carver Name Role Phone Joon Sandy MD Primary Care Provider [phone] Reason for Referral * Other (Routine) - Closed Specialty Diagnoses / Procedures Referred By Cullen simon Referred To Contact Radiology Diagnoses Visit for screening mammogram Procedures ETHEL CELESTINE DIGITAL SCREEN BILATERAL Joon Sandy MD [address] [place] [address] Referral ID Status Reason Start Date Expiration Date Visits Re quested Visits Authorized [id number] Closed 04/19/2021 04/19/2022 1 1 Reason for Visit * Other (Routine) - Closed Specialty Diagnoses / Procedures Referred By Cullen simon Referred To Contact Radiology Diagnoses Visit for screening mammogram Procedures ETHEL CELESTINE DIGITAL SCREEN BILATERAL Joon Sandy MD [address] [place] [address] Referral ID Status Reason Start Date Expiration Date Visits Re quested Visits Authorized [id number] Closed 04/19/2021 04/19/2022 1 1 Encounter Details Date Type Department Care Team (Latest Contact Info) Description 04/20/2021 2:30 PM EDT - 04/25/2021 11:59 PM EDT Hospital Encounter [facility] [address] [facility] [address] [place] [address] Visit for screening mammogram Discharge Disposition: Home [...] mammogram documented in this encounter Care Teams Leather Carver Relationship Specialty Start Date End Date Joon Sandy MD [address] [place] [address] PCP - General Internal Medicine 01/01/19 documented as of this encounter
--- OUTSIDE RECORDS SUMMARY | 2024-06-30 08:14 | XMS_ITS | Clinical Summary ---
Author Organization [facility] Address [address] [place] [address] Care Team Providers Care Fish Warden Name Role Phone Joon Sandy MD Primary Care Provider [phone] Social History Tobacco Use Types Packs/Day Years [...] of Treatment Not on file Care Teams Fish Warden Relationship Specialty Start Date End Date Jono Sandy MD [address] [address] [address] [place] [address] PCP - General Internal Medicine 01/01/19
--- OUTSIDE RECORDS SUMMARY | 2024-06-30 08:14 | XMS_ITS | Clinical Summary ---
Author Organization [facility] ystem Address [address] [place] [address] Care Team Providers Care Operations Processor Name Role Phone Unavailable Primary Care Provider [...]
--- OUTSIDE RECORDS SUMMARY | 2024-06-30 08:14 | XMS_ITS | Encounter Summary ---
Author [facility] Address [address] [place] [address] Care Team Providers Care Switch Maker Name Role Phone Joon Sandy MD Primary Care Provider Reason for Referral * Other (Routine) - Closed Specialty Diagnoses / Procedures Referred By Cullen simon Referred To Contact Radiology Diagnoses Visit for screening mammogram Procedures ETHEL CELESTINE [place]ITAL [place] [address] [place] [address] Referral ID Status Reason Start Date Expiration Date Visits Re quested Visits Authorized [id number] Closed 01/01/2019 01/01/2020 1 1 Reason for Visit * Other (Routine) - Closed Specialty Diagnoses / Procedures Referred By Cullen simon Referred To Contact Radiology Diagnoses Visit for screening mammogram Procedures ETHEL CELESTINE DIGITAL SCREEN BILATERAL Joon Sandy MD [address] [place] [address] Referral ID Status Reason Start Date Expiration Date Visits Re quested Visits Authorized [id number] Closed 01/01/2019 01/01/2020 1 1 Encounter Details Date Type Department Care Team (Latest Contact Info) Description 01/01/2019 9:43 AM EDT - 01/06/2019 11:59 PM EDT Hospital Encounter [facility] [address] [facility] [address] [place], [place] [id number] Visit for screening mammogram Discharge Disposition: Home [...] of genetic testing may be warranted. ??[facility] Nurse Navigator will be the contact for [...] appropriateness of genetic testing may bewarranted. [facility] Nurse Navigator will be the contact forthe [...] mammogram documented in this encounter Care Teams Switch Maker Relationship Specialty Start Date End Date Joon Sandy MD [address] [address] [address] [place] [address] PCP - General Internal Medicine 01/01/19 documented as of this encounter
[2024-06-30] MEDS: IRBESARTAN 150MG TAB 150 MG PO (08:29)
[2024-06-30] MEDS: ENOXAPARIN 40MG/0.4ML SYRINGE 40 MG SUBCUT ×2 (08:30→20:07)
--- NOTE | 2024-06-30 11:44 | P.PN_ITS ---
Subjective *Date: 06/30/24 *Time: 13:56 Interval history: Feeling okay this morning. No nausea or vomiting. Had another bowel movement, more liquid this time. NG removed by surgery on rounds. Stable on room air Medical Exam Vital signs and Labs for Last 24 Hours: Vital Signs Temp Pulse Resp BP Pulse Ox O2 Del Method 06/30/24 07:52 98.4 F 77 18 163/84 H 93 L Room Air 06/30/24 07:00 Room Air 06/30/24 05:00 Room Air 06/30/24 04:00 98.0 F 75 16 166/93 H 94 L Room Air 06/30/24 03:00 Room Air 06/30/24 01:00 Room Air 06/30/24 00:00 98.8 F 78 16 154/97 H 93 L Room Air 06/29/24 23:00 Room Air 06/29/24 21:00 Room Air 06/29/24 20:00 99.0 F 76 20 170/98 H 95 Room Air 06/29/24 19:49 Room Air 06/29/24 16:13 Room Air 06/29/24 16:00 98.2 F 74 16 182/92 H 96 06/29/24 14:07 Room Air 06/29/24 12:00 98.1 F 71 18 174/90 H 96 Intake and Output 06/29/24 06/30/24 06/30/24 23:59 07:59 15:59 Intake Total 100 / 100 Output Total 0 / 0 0 / 0 Balance 0 / 1180 100 / 100 Intake: Intake, Total IV Amount 100 / 100 Pipercillin/Tazo 3.375 gm In 0. 100 / 100 9 % Sodium Chloride 50 ml @ 100 mls/hr IV Q6H [facility] Rx#:[id number] Output: Output, Urine Amount 0 / 0 0 / 0 Other: Number of Unmeasured Voids 1 1 Weight 112.854 kg 112.854 kg Patient Weight 06/30/24 23:59 Weight 112.854 kg Laboratory Results - last 24 hr 06/30/24 05:40: WBC 13.4 H, RBC 4.31, Hgb 13.6, Hct 39.7, MCV 92.0, MCH 31.5 H, MCHC 34.3, RDW 13.2, Plt Count 490 H, MPV 7.5, Neut % (Auto) 74.1, Lymph % (Auto) 18.8, [place] % (Auto) 6.1, Eos % (Auto) 0.7, Baso % (Auto) 0.4, Neut # (Auto) 10.0 H, Lymph # (Auto) 2.5, [place] # (Auto) 0.8, Eos # (Auto) 0.1, Baso # (Auto) 0.1, Sodium 138, Potassium 3.5, Chloride 101, Carbon Dioxide 30, Anion Gap 10.5, BUN 9 D, Creatinine 1.00, Estimated Creat Clear 42, Estimated GFR 55 L, Est GFR ( Amer) 67, Glucose 87, Calcium 8.7, Phosphorus 3.9, Magnesium 2.0 D, Total Bilirubin 0.6, AST 32, ALT 21, Alkaline Phosphatase 82, Total Protein 6.5, Albumin 3.3 L, Globulin 3.2, Albumin/Globulin Ratio 1.0 L I & O for Labs for Last 24 Hours: Intake & Output 06/27/24 06/28/24 06/29/24 06/30/24 23:59 23:59 23:59 23:59 Intake Total 1080 / 1180 100 / 100 Output Total 0 / 0 0 / 0 0 / 0 Balance 0 / 530 1080 / 1180 100 / 100 Weight 107.501 kg 107.501 kg 112.854 kg 112.854 kg Constitutional: Present no acute distress, morbidly obese, chronically ill appearing and cooperative Head: Present atraumatic and normocephalic ENT: Present normal exam Respiratory: Present normal respiratory effort; Absent rhonchi, wheezes or crackles Cardiac: Present Reg Rate and Rhythm GI: Present soft and normal bowel sounds; Absent distention or tenderness Extremities: Present normal inspection and full ROM Skin: Present intact; Absent erythema Neuro: Present Grossly Intact, alert, awake, oriented x 3 and moves all extremities Assessment and Plan *Assessment and plan (1) Postoperative ileus: Status: Acute Category: Medical Code(s): K91.89 - Other postprocedural complications and disorders of digestive system; K56.7 - Ileus, unspecified (2) Hypertension: Status: Acute Category: Medical Code(s): I10 - Essential (primary) hypertension (3) Class 3 obesity: Status: Chronic Category: Medical Code(s): E66.813 - Obesity, class 3 Plan Amada Stallings is a 64-year-old female with a medical with medical history significant for hypertension, hyperlipidemia who returns to the ED after nausea/vomiting and inability to tolerate oral intake. She underwent a laparoscopic appendectomy for perforated/gangrenous appendicitis on 06/25/2024. Had episode of bloating and pain and nausea and vomiting after discharge. Having bowel movements at this time. Slow advancement of diet. Surgery assisting with care. NG removed today. Anticipate discharge tomorrow if tolerates diet. Problems addressed as follows: #Postoperative ileus versus SBO #Leukocytosis #Recent laparoscopic appendectomy ? Underwent a laparoscopic appendectomy for perforated/gangrenous appendicitis on 06/25/2024. ? NG removed today. Tolerating diet. Advance to low residue. - Continue Zosyn 3.375 grams every 8 hours. Discontinue at discharge ? General Surgery consulted, discussed case this morning, recommend removing NG and advancing diet. Monitor for improvement overnight. Anticipate discharge tomorrow. - IV famotidine 20 mg twice daily for GI prophylaxis. -White count 13.4, hemoglobin 13.6. Kidney function normal with BUN 9, creatinine 1. Repeat CBC, CMP, magnesium ordered for the morning. #Hypertension: Remains elevated, though better with systolic of 160. Increase irbesartan to 150 mg daily, add amlodipine 5 mg daily Full code DVT prophylaxis: SCDs. Prophylactic Lovenox
[2024-06-30 12:00] VITALS: BP 165/90; PULSE 79; RESP 18; TEMP 37.1; O2SAT 95
--- NOTE | 2024-06-30 13:00 | PC.NURSE ---
notified of elevated BP, no new orders at this time
[2024-06-30 16:00] VITALS: BP 162/83; PULSE 77; RESP 20; TEMP 36.8; O2SAT 94
[2024-06-30] MEDS: AMLODIPINE 5MG TABLET 5 MG PO (16:05)
--- NOTE | 2024-06-30 16:48 | PC.NURSE ---
TECH NOTE; NOTIFIED NURSE OF BLOOD PRESSURE FOR 1600 VITAL SIGNS Natalya STEPHEN, SRNA
--- NOTE | 2024-06-30 18:01 | PC.NURSE ---
pt has tolerated eating and drinking, and had a BM since advancing diet and removing NG tube. No c/o abdominal discomfort at this time.
[2024-06-30 20:00] VITALS: BP 166/87; PULSE 77; RESP 17; TEMP 37; O2SAT 93
[2024-06-30] MEDS: SODIUM CHLORIDE 0.9% 10ML VIAL 8 ML IV (20:07)
[2024-06-30] MEDS: FAMOTIDINE 20MG/2ML VIAL 20 MG IV (20:07)
[2024-07-01] VITALS: BP 142/74; PULSE 82; RESP 16; TEMP 36.8; O2SAT 92
[2024-07-01 04:00] VITALS: BP 163/75; PULSE 77; RESP 16; TEMP 37.1; O2SAT 92; BMI 45.8
[2024-07-01] MEDS: PIPERCILLIN/TAZO 3.375 GM in 0.9 % SODIUM CHLORIDE 50 ML IV ×2 (04:38→10:02)
--- NOTE | 2024-07-01 05:02 | PC.NURSE ---
Patient has had a good night. She has slept well and had no issues with nausea or vomiting, She has been up to the bathroom twice. Patient states she hasnt passed gas but has had liquid BMs. no other complaints
[2024-07-01 05:57] LABS: Basophils # 0.1 K/mm3 (0-0.2); Basophils % 0.6 % (0.1-2.0); Eosinophils # 0.1 K/mm3 (0.0-0.4); Eosinophils % 0.9 % (0.1-12.0); Hematocrit 37.5 % (37.0-47.0); Lymphocytes # 2.6 K/mm3 (0.7-4.5); Lymphocytes % 20.7 % (10-50); Mean Corpuscular HGB Conc 34.6 g/dL (31.8-35.4); Mean Corpuscular Hemoglobin 31.2 pg (27.0-31.2); Mean Corpuscular Volume 90.3 fl (81-99); Mean Platelet Volume 7.4 fl (7.4-10.4); Monocytes # 0.6 K/mm3 (0.1-1.0); Monocytes % 4.9 % (1.7-9.3); Neutrophils # 9.3 K/mm3 (1.8-7.8); Neutrophils % 72.9 % (37.0-80.0); Platelet Count 494 K/mm3 (142-424); Red Blood Count 4.15 M/mm3 (4.20-5.40); Red Cell Distribution Width 13.4 % (11.5-17.5); White Blood Count 12.8 K/mm3 (4.8-10.8)
[2024-07-01 06:07] LABS: Albumin Level 3.2 g/dl (3.5-5.0); Chloride 104 mmol/L (98-107); Potassium 3.7 mmoL/L (3.5-5.1); Sodium 138 mmol/L (136-145)
[2024-07-01 06:09] LABS: Blood Urea Nitrogen 9 mg/dl (7-17); Creatinine Clearance Estimated 38 mL/min (50-200); Estimated Glomerular Filt Rate 50 ml/min (>60); GFR (African American) 60 ML/MIN (>60)
[2024-07-01 06:10] LABS: Alanine Aminotransferase 20 U/L (12-78); Alkaline Phosphatase 73 U/L (38-126); Anion Gap 6.7 mEq/L (5-15); Aspartate Amino Transferase 31 U/L (14-36); Bilirubin,Total 0.4 mg/dl (0.2-1.3); Calcium 8.7 mg/dl (8.4-10.2); Carbon Dioxide 31 mmol/L (22.0-30.0); Globulin 3.1 g/dL (1.3-3.2); Glucose 114 mg/dl (74-100); Magnesium 1.8 mg/dl (1.6-2.3); Phosphorous 4.7 mg/dl (2.5-4.5); Total Protein,Serum 6.3 g/dl (6.3-8.2)
--- NOTE | 2024-07-01 06:31 | P.PN_ITS ---
Subjective Patient reports: no new complaints, flatus and bowel movement Narrative: She states that she is having a small amount of bowel function. She states that she has passed a small amount of flatus and has had a few small bowel movements over the past 24 hours. Exam Data for Last 24 hours Vital signs and Labs for Last 24 Hours: Temp Pulse Resp BP Pulse Ox O2 Del Method 98.7 F 77 16 163/75 H 92 L Room Air 07/01/24 04:00 07/01/24 04:00 07/01/24 04:00 07/01/24 04:00 07/01/24 04:00 07/01/24 05:00 Laboratory Results - last 24 hr 06/30/24 05:40: WBC 13.4 H, RBC 4.31, Hgb 13.6, Hct 39.7, MCV 92.0, MCH 31.5 H, MCHC 34.3, RDW 13.2, Plt Count 490 H, MPV 7.5, Neut % (Auto) 74.1, Lymph % (Auto) 18.8, [place] % (Auto) 6.1, Eos % (Auto) 0.7, Baso % (Auto) 0.4, Neut # (Auto) 10.0 H, Lymph # (Auto) 2.5, [place] # (Auto) 0.8, Eos # (Auto) 0.1, Baso # (Auto) 0.1, Sodium 138, Potassium 3.5, Chloride 101, Carbon Dioxide 30, Anion Gap 10.5, BUN 9 D, Creatinine 1.00, Estimated Creat Clear 42, Estimated GFR 55 L, Est GFR ( Amer) 67, Glucose 87, Calcium 8.7, Phosphorus 3.9, Magnesium 2.0 D, Total Bilirubin 0.6, AST 32, ALT 21, Alkaline Phosphatase 82, Total Protein 6.5, Albumin 3.3 L, Globulin 3.2, Albumin/Globulin Ratio 1.0 L 07/01/24 05:33: WBC 12.8 H, RBC 4.15 L, Hgb 13.0, Hct 37.5, MCV 90.3, MCH 31.2, MCHC 34.6, RDW 13.4, Plt Count 494 H, MPV 7.4, Neut % (Auto) 72.9, Lymph % (Auto) 20.7, [place] % (Auto) 4.9, Eos % (Auto) 0.9, Baso % (Auto) 0.6, Neut # (Auto) 9.3 H, Lymph # (Auto) 2.6, [place] # (Auto) 0.6, Eos # (Auto) 0.1, Baso # (Auto) 0.1, Sodium 138, Potassium 3.7, Chloride 104, Carbon Dioxide 31 H, Anion Gap 6.7, BUN 9, Creatinine 1.10 H, Estimated Creat Clear 38, Estimated GFR 50 L, Est GFR ( Amer) 60, Glucose 114 H D, Calcium 8.7, Phosphorus 4.7 H, Magnesium 1.8, Total Bilirubin 0.4, AST 31, ALT 20, Alkaline Phosphatase 73, Total Protein 6.3, Albumin 3.2 L, Globulin 3.1, Albumin/Globulin Ratio 1.0 L I & O for Last 24 hours: Intake & Output 06/28/24 06/29/24 06/30/24 07/01/24 11:59 11:59 11:59 11:59 Intake Total 1080 / 1080 640 / 640 760 / 760 Output Total 0 / 0 0 / 0 0 / 0 0 / 0 Balance 0 / 0 1080 / 1080 640 / 640 760 / 760 Weight 236 lb 15.986 oz 248 lb 12.8 oz 248 lb 12.807 oz 242 lb 11.2 oz Constitutional Constitutional: no acute distress *Routine Respiratory Exam Respiratory: Absent respiratory distress *Routine Cardiovascular Exam Cardiovascular: Absent tachycardia *Routine Abdominal Exam Abdominal: Present soft Progress Note: A&P Assessment and plan (1) Postoperative ileus: Status: Acute Assessment and plan: Slowly resolving. A small amount of flatus and a few small bowel movements over the past 24 hours. Okay from surgical standpoint for discharge home with close outpatient follow- up. She has a scheduled appointment for tomorrow (scheduled from prior hospitalization).
[2024-07-01 08:00] VITALS: BP 167/84; PULSE 85; RESP 16; TEMP 36.7; O2SAT 97
[2024-07-01] MEDS: AMLODIPINE 5MG TABLET 5 MG PO (10:02)
[2024-07-01] MEDS: ENOXAPARIN 40MG/0.4ML SYRINGE 40 MG SUBCUT (10:02)
[2024-07-01] MEDS: IRBESARTAN 150MG TAB 150 MG PO (10:02)
--- NOTE | 2024-07-01 11:21 | EXP.DC.SUM ---
General Admission date:: 06/27/24 HPI HPI HPI: Patient is a 64-year-old female who had presented to her primary care provider on 06/25/2024 with a 2-day history of increasing progressive abdominal pain. CT scan revealed findings consistent with perforated appendicitis. She had associated low-grade fevers. Dr. Barnes took her to the operating room on 06/25/2024 at which time she was found to have severe regional inflammatory changes with appendiceal necrosis and distal appendiceal perforation. There was no abscess noted. Appendectomy was able to be performed successfully laparoscopically. She remained an inpatient for couple days and was continued on IV antibiotics. She convalesced. White blood cell count improved to 16,900. She was discharged home on 06/27/2024 on oral antibiotics. After discharge she had been unable to tolerate her oral antibiotics and developed nausea with vomiting. She presented back to the emergency department. She was found to have a leukocytosis of 22,200. She underwent CT scan which revealed findings compatible with developing small bowel obstruction. Could not exclude mild changes of peritonitis. Small amount of free fluid in the left paracolic gutter as well as in the cul-de-sac. She was admitted for inpatient management. She did have a nasogastric tube placed. Hospital Course Hospital Course Hospital Course: Amada Stallings is a 64-year-old female with a medical with medical history significant for hypertension, hyperlipidemia who returns to the ED after nausea/vomiting and inability to tolerate oral intake. She underwent a laparoscopic appendectomy for perforated/gangrenous appendicitis on 06/25/2024. Had episode of bloating and pain and nausea and vomiting after discharge. Having bowel movements at this time. Slow advancement of diet. Surgery assisting with care. NG removed today. Anticipate discharge tomorrow if tolerates diet. Problems addressed as follows: #Postoperative ileus versus SBO #Leukocytosis #Recent laparoscopic appendectomy ? Underwent a laparoscopic appendectomy for perforated/gangrenous appendicitis on 06/25/2024. ? NG removed yesterday. Tolerating diet. Advance to low residue. - White count continues to improve today, 12.8. - Clinically improved with IV Zosyn, NG tube decompressions, bowel rest, and slowing advancing diet to low residue diet. - Discharged with cipro, flagyl for 5 more days. - Will follow-up with surgery within 1 week. #Hypertension: - Discharged with irbesartan to 150 mg daily, add amlodipine 5 mg daily. - Will follow-up with PCP for further management. Exam Data for Last 24 hours Vital signs and Labs for Last 24 Hours: Temp Pulse Resp BP Pulse Ox O2 Del Method 98.1 F 85 16 167/84 H 97 Room Air 07/01/24 08:00 07/01/24 08:00 07/01/24 08:00 07/01/24 08:00 07/01/24 08:00 07/01/24 06:48 Laboratory Results - last 24 hr 07/01/24 05:33: WBC 12.8 H, RBC 4.15 L, Hgb 13.0, Hct 37.5, MCV 90.3, MCH 31.2, MCHC 34.6, RDW 13.4, Plt Count 494 H, MPV 7.4, Neut % (Auto) 72.9, Lymph % (Auto) 20.7, [place] % (Auto) 4.9, Eos % (Auto) 0.9, Baso % (Auto) 0.6, Neut # (Auto) 9.3 H, Lymph # (Auto) 2.6, [place] # (Auto) 0.6, Eos # (Auto) 0.1, Baso # (Auto) 0.1, Sodium 138, Potassium 3.7, Chloride 104, Carbon Dioxide 31 H, Anion Gap 6.7, BUN 9, Creatinine 1.10 H, Estimated Creat Clear 38, Estimated GFR 50 L, Est GFR ( Amer) 60, Glucose 114 H D, Calcium 8.7, Phosphorus 4.7 H, Magnesium 1.8, Total Bilirubin 0.4, AST 31, ALT 20, Alkaline Phosphatase 73, Total Protein 6.3, Albumin 3.2 L, Globulin 3.1, Albumin/Globulin Ratio 1.0 L I & O for Last 24 hours: Intake & Output 06/28/24 06/29/24 06/30/24 07/01/24 23:59 23:59 23:59 23:59 Intake Total 1080 / 1180 1300 / 1400 460 / 460 Output Total 0 / 0 0 / 0 0 / 0 0 / 0 Balance 0 / 530 1080 / 1180 1300 / 1400 460 / 460 Weight 107.501 kg 112.854 kg 112.854 kg 110.087 kg Constitutional Constitutional: no acute distress *Routine HEENT Exam Head: Present normocephalic Eye: Present EOMI and PERRL ENT: Present mucous membranes moist *Routine Neck Exam Neck: Present supple; Absent lymphadenopathy *Routine Respiratory Exam Respiratory: Present CTA bilaterally *Routine Cardiovascular Exam Cardiovascular: Present RRR *Routine Abdominal Exam Abdominal: Present soft and normoactive bowel sounds; Absent tenderness *Routine Extremities Exam Extremities: Absent cyanosis, clubbing or edema *Routine Skin Exam Skin: Present warm; Absent rash *Routine Neurological Exam Neurological: Present alert and oriented X3 Results Data Completed and Pending Labs on day of discharge: Labs from last 24 hours 07/01/24 05:33 WBC 12.8 H RBC 4.15 L Hgb 13.0 Hct 37.5 MCV 90.3 MCH 31.2 MCHC 34.6 RDW 13.4 Plt Count 494 H MPV 7.4 Neut % (Auto) 72.9 Lymph % (Auto) 20.7 [place] % (Auto) 4.9 Eos % (Auto) 0.9 Baso % (Auto) 0.6 Neut # (Auto) 9.3 H Lymph # (Auto) 2.6 [place] # (Auto) 0.6 Eos # (Auto) 0.1 Baso # (Auto) 0.1 Sodium 138 Potassium 3.7 Chloride 104 Carbon Dioxide 31 H Anion Gap 6.7 BUN 9 Creatinine 1.10 H Estimated Creat Clear 38 Estimated GFR 50 L Est GFR ( Amer) 60 Glucose 114 H D Calcium 8.7 Phosphorus 4.7 H Magnesium 1.8 Total Bilirubin 0.4 AST 31 ALT 20 Alkaline Phosphatase 73 Total Protein 6.3 Albumin 3.2 L Globulin 3.1 Albumin/Globulin Ratio 1.0 L DS: Diagnosis Discharge Diagnosis (1) Postoperative ileus: Status: Resolved Code(s): K91.89 - Other postprocedural complications and disorders of digestive system; K56.7 - Ileus, unspecified Meds Home Medications and Allergies Home Medications ?Medication ?Instructions ?Recorded ?Confirmed ?Type atorvastatin 20 mg tablet 20 mg PO HS 06/25/24 07/09/24 History hydrocodone 5 mg-acetaminophen 325 1 tab PO Q6HP PRN Moderate Pain 06/28/24 07/09/24 History mg tablet (Scale Score 5-6) metronidazole 500 mg tablet 500 mg PO TID 5 days #15 tabs 07/01/24 07/09/24 Rx cephalexin 500 mg capsule 500 mg PO BID #10 caps 07/09/24 07/09/24 Rx losartan 50 mg tablet 50 mg PO ONCE 07/09/24 07/09/24 History New Prescriptions to Start Prescriptions: metronidazole Andre Mckeon Allergies Allergy/AdvReac Type Severity Reaction Status Date / Time No Known Allergies Allergy Verified 07/09/24 08:40 Discharge Plan Disposition Patient Disposition: Home, Self-Care Condition: Serious Discharge Order Discharge Orders: Discharge Order (Routine); Ordered 07/01/24 Ordered By: Andre Mckeon Follow up Plan Follow up with: Joon Sandy MD [Primary Care Provider] - 07/08/24 11:30 am Prescriptions/Medication Reconciliation: New metronidazole 500 mg tablet 500 mg PO TID 5 Days Qty: 15 0RF Continued atorvastatin 20 mg tablet 20 mg PO HS Patient Comments: TAKE 1 TABLET BY MOUTH ONCE DAILY hydrocodone-acetaminophen 5-325 mg tablet 1 tab PO Q6HP PRN (Reason: Moderate Pain (Scale Score 5-6)) Discontinued losartan 50 mg tablet 50 mg PO DAILY Patient Comments: TAKE 1 TABLET BY MOUTH DAILY amoxicillin-pot clavulanate [Augmentin] 500-125 mg tablet 1 tab PO TID Qty: 21 0RF No Action losartan 50 mg tablet 50 mg PO ONCE Patient Comments: TAKE 1 TABLET BY MOUTH DAILY cephalexin 500 mg capsule 500 mg PO BID Qty: 10 0RF Problem Reconciliation Problems Reviewed?: Yes Patient Discharge Instructions Patient Instructions: DI for Ileus Print Language: Iranian Providers Primary Care Provider: Joon Sandy Admit Provider: Andre Mckeon Attending Provider: Andre Mckeon
--- NOTE | 2024-07-02 10:15 | SW/DCPLANNER ---
Spoke with patient on the phone. Patient stated that she is getting ready to go back to the Dr for her follow up appointment. Patient stated that she is doing alot better and that she is aware of her upcoming appointment. Patient stated that she got her new medicines filled and that she has no concerns or questions at this time. Darius Freitas
== END 2024-07-01 12:55 | disposition home or self-care (01) | DRG 394 ==
LOC: ER 17:25 → 2ND 20:11
PROVIDERS: Physician Assistant; Admitting Provider Student in an Organized Health Care Education/Training Program; Emergency Provider Student in an Organized Health Care Education/Training Program; PCP Internal Medicine; Visit Provider Student in an Organized Health Care Education/Training Program
DX: K91.89 Other postprocedural complications and disorders of digestive system (principal); K56.7 Ileus, unspecified; Z68.41 Body mass index [BMI] 40.0-44.9, adult; I10 Essential (primary) hypertension; E66.813 Obesity, class 3; M19.90 Unspecified osteoarthritis, unspecified site
CPT/HCPCS: 36415; 71045; 74018; 74177; 80053; 83735; 84100; 84145; 85007; 85025; 86803; 87389; 99285; J0131; J1650; J2405; J2543; J2550; J3475; J7030; Q9967; S0028

== ENCOUNTER 2024-07-09 14:44 | Outpatient (CLI) | payer MEDICARE, SELFPAY ==
[2024-07-09 14:41] LABS: Albumin Level 3.8 g/dl (3.5-5.0); Chloride 101 mmol/L (98-107); Sodium 134 mmol/L (136-145)
[2024-07-09 14:44] LABS: Alanine Aminotransferase 25 U/L (12-78); Albumin/Globulin Ratio 1.2 (1.1-1.8); Alkaline Phosphatase 105 U/L (38-126); Aspartate Amino Transferase 41 U/L (14-36); Bilirubin,Total 0.5 mg/dl (0.2-1.3); Blood Urea Nitrogen 14 mg/dl (7-17); Carbon Dioxide 31 mmol/L (22.0-30.0); Estimated Glomerular Filt Rate 55 ml/min (>60); GFR (African American) 67 ML/MIN (>60); Globulin 3.2 g/dL (1.3-3.2); Triglycerides 176 mg/dl (30-150); VLDL Cholesterol 35 mg/dL (0-40)
[2024-07-09 14:45] LABS: Chol/HDL Ratio 3.2 (1-3.5); Cholesterol 167 mg/dl (140-200); Glucose 113 mg/dl (74-100); HDL Cholesterol 52 mg/dl (40-60)
[2024-07-09 14:56] LABS: Direct LDL Cholesterol 84.99 mg/dL (100-129)
== END 2024-07-09 23:59 | disposition home or self-care (01) ==
LOC: LAB.DROPOF 14:45
PROVIDERS: PCP Internal Medicine; Visit Provider Internal Medicine
DX: I10 Essential (primary) hypertension (principal); E78.5 Hyperlipidemia, unspecified
CPT/HCPCS: 80053; 80061

== ENCOUNTER 2025-01-07 16:20 | Outpatient (CLI) | payer MEDICARE, SELFPAY ==
[2025-01-07 13:40] LABS: Basophils % 0.3 % (0.1-2.0); Hematocrit 42.4 % (37.0-47.0); Hemoglobin 13.9 g/dL (12.2-16.2); Immature Granulocytes # 0.03 10^3uL; Immature Granulocytes % 0.3 %; Lymphocytes # 2.4 K/mm3 (0.7-4.5); Lymphocytes % 26.6 % (10-50); Mean Corpuscular HGB Conc 32.8 g/dL (31.8-35.4); Mean Corpuscular Volume 94.4 fl (81-99); Mean Platelet Volume 10.2 fl (7.4-10.4); Monocytes # 0.7 K/mm3 (0.1-1.0); Monocytes % 7.1 % (1.7-9.3); Neutrophils % 65.7 % (37.0-80.0); Nucleated Red Blood Cells # 0 10^3/uL; Nucleated Red Blood Cells % 0 %; Platelet Count 513 K/mm3 (142-424); Red Blood Count 4.49 M/mm3 (4.20-5.40); Red Cell Distribution Width 13.2 % (11.5-17.5); Red Cell Distribution Width-SD 45.7 fL; White Blood Count 9.1 K/mm3 (4.8-10.8)
[2025-01-07 14:12] LABS: Alanine Aminotransferase 72 U/L (12-78); Albumin Level 4.1 g/dl (3.5-5.0); Albumin/Globulin Ratio 1.1 (1.1-1.8); Alkaline Phosphatase 97 U/L (38-126); Anion Gap 9.5 mEq/L (5-15); Aspartate Amino Transferase 90 U/L (14-36); Bilirubin,Total 0.7 mg/dl (0.2-1.3); Blood Urea Nitrogen 13 mg/dl (7-17); Calcium 9.6 mg/dl (8.4-10.2); Carbon Dioxide 31 mmol/L (22.0-30.0); Chloride 102 mmol/L (98-107); Cholesterol 161 mg/dl (140-200); Estimated Glomerular Filt Rate 55 ml/min (>60); GFR (African American) 67 ML/MIN (>60); Globulin 3.8 g/dL (1.3-3.2); Glucose 96 mg/dl (74-100); HDL Cholesterol 54 mg/dl (40-60); Potassium 5.5 mmoL/L (3.5-5.1); Sodium 137 mmol/L (136-145); Total Protein,Serum 7.9 g/dl (6.3-8.2); Triglycerides 126 mg/dl (30-150); VLDL Cholesterol 25 mg/dL (0-40)
[2025-01-07 14:23] LABS: Direct LDL Cholesterol 65.57 mg/dL (100-129)
--- OUTSIDE RECORDS SUMMARY | 2025-01-07 16:23 | XMS_ITS | Clinical Summary ---
Author Organization [facility] Address [address] [place] [address] Care Team Providers Care Metal Leaf Layer Name Role Phone Joon Sandy MD Primary Care Provider [phone] Social History Tobacco Use Types Packs/Day Years Used Date Smoking Tobacco: Never Smokeless Tobacco: Never Comments No Sex and Gender Information Value Date Recorded Sex Assigned at Not on file Legal Sex Female 9:38 AM EDT Gender Identity Not on file Sexual [...] EDT Plan of Treatment Not on file Insurance [employer] [id number] [place] Care Teams Metal Leaf Layer Relationship Specialty Start Date End Date Joon Sandy MD [address] [address] [address] [place] [id number] PCP - General Internal Medicine 01/01/19
== END 2025-01-07 23:59 | disposition home or self-care (01) ==
LOC: LAB.DROPOF 16:21
PROVIDERS: PCP Internal Medicine; Visit Provider Internal Medicine
DX: E78.00 Pure hypercholesterolemia, unspecified (principal); I10 Essential (primary) hypertension; M17.12 Unilateral primary osteoarthritis, left knee; M17.11 Unilateral primary osteoarthritis, right knee; E66.01 Morbid (severe) obesity due to excess calories
CPT/HCPCS: 80053; 80061; 85025

== ENCOUNTER 2025-02-18 12:20 | Outpatient (CLI) | payer MEDICARE, SELFPAY ==
[2025-02-18 15:19] LABS: Chloride 100 mmol/L (98-107); Potassium 4.8 mmoL/L (3.5-5.1); Sodium 135 mmol/L (136-145)
[2025-02-18 15:22] LABS: Blood Urea Nitrogen 15 mg/dl (7-17); Creatinine,Serum 0.80 mg/dl (0.52-1.04); Estimated Glomerular Filt Rate 72 ml/min (>60); GFR (African American) 87 ML/MIN (>60)
[2025-02-18 15:23] LABS: Anion Gap 7.8 mEq/L (5-15); Calcium 9.4 mg/dl (8.4-10.2); Carbon Dioxide 32 mmol/L (22.0-30.0); Glucose 107 mg/dl (74-100)
--- OUTSIDE RECORDS SUMMARY | 2025-02-19 15:26 | XMS_ITS | Clinical Summary ---
Author Organization [facility] Address [address] [place] [address], [address] [place] [address] Care Team Providers Care Sales Order Clerk Name Role Phone Joon Sandy MD Primary Care Provider [phone] Social History Tobacco Use Types Packs/Day Years [...] Plan of Treatment Not on file Insurance [place] BCBS Care Teams Sales Order Clerk Relationship Specialty Start Date End Date Joon Sandy MD [address] [address] [address] [place] [address] PCP - General Internal Medicine 01/01/19
--- OUTSIDE RECORDS SUMMARY | 2025-02-19 15:26 | XMS_ITS | Clinical Summary ---
Author Organization [facility] Address [address] [place] [address] Care Team Providers Care Living Manager Name Role Phone Unavailable Primary Care Provider [...] Date Last Done Comments ANNUAL PHYSICAL 1958 DXA SCAN 1958 HEPATITIS C SCREENING 1958 TDAP/TD VACCINES (1 - Tdap) 1977 MAMMOGRAM 1998 COLOGUARD 2003 COLON CANCER SCREENING 5 YEAR SIGMOIDOSCOPY 2003 COLONOSCOPY 2003 COL[address]ECTAL CANCER SCREENING 2003 CT COLONOGRAPHY 2003 FECAL OCCULT BLOOD TEST 2003 FIT Testing (1 year) 2003 Pneumococcal Vaccine 50+ (1 of 1 - PCV) 2008 ZOSTER VACCINE (1 of 2) 2008 COVID-19 Vaccine (1 - season) 2024 INFLUENZA VACCINE 04/29/2025
== END 2025-02-18 23:59 | disposition home or self-care (01) ==
LOC: LAB.DROPOF 02-19 15:20
PROVIDERS: PCP Internal Medicine; Visit Provider Internal Medicine
DX: E87.5 Hyperkalemia (principal); I10 Essential (primary) hypertension
CPT/HCPCS: 80048

== ENCOUNTER 2025-03-05 10:46 | Outpatient (CLI) | payer MEDICARE, SELFPAY ==
--- OUTSIDE RECORDS SUMMARY | 2025-03-05 10:49 | XMS_ITS | Clinical Summary ---
Author Organization [facility] Address [address] [place] [address], [address] [place] [address] Care Team Providers Care Jacket Preparer Name Role Phone Joon Sandy MD Primary Care Provider [phone] Social History Tobacco Use Types Packs/Day Years [...] on file Insurance [place] BCBS Care Teams Jacket Preparer Relationship Specialty Start Date End Date Joon Sandy MD [address] [address] [address] [place] [address] PCP - General Internal Medicine 01/01/19
--- OUTSIDE RECORDS SUMMARY | 2025-03-05 10:49 | XMS_ITS | Clinical Summary ---
Author Organization [facility] Address [address] [place] [address] Care Team Providers Care Painter Set Name Role Phone Unavailable Primary Care Provider [...]
--- NOTE | 2025-03-05 11:00 | MM_ITS ---
PROCEDURE INFORMATION: Exam: MG Bilateral Screening 3D Mammography Exam date and time: 03/05/2025 10:53 AM Age: 64 years old Clinical indication: Screening. No family history of breast cancer. TECHNIQUE: Imaging protocol: Bilateral Screening tomosynthesis and 2D mammography including computer-aided detection (CAD) when performed. COMPARISON: 1. [facility] CELESTINE DIGITAL SCREEN BILATERAL 04/20/2021 2:18 PM 2. [facility] CELESTINE DIGITAL SCREEN BILATERAL 01/01/2019 9:57 AM FINDINGS: MAMMOGRAPHY: Breast composition: The breasts are almost entirely fatty. Mass: None. Architectural distortion: None. Calcifications: No suspicious calcifications. Asymmetric density: None. Skin thickening: None. Axillary adenopathy: None. IMPRESSION: No mammographic evidence of malignancy. Annual screening is recommended unless otherwise clinically indicated. ASSESSMENT: BI-RADS Category 1: Negative.
== END 2025-03-05 23:59 | disposition home or self-care (01) ==
LOC: RAD 10:47
PROVIDERS: PCP Internal Medicine; Visit Provider Internal Medicine
DX: Z12.31 Encounter for screening mammogram for malignant neoplasm of breast (principal); R92.313 Mammographic fatty tissue density, bilateral breasts
CPT/HCPCS: 77063; 77067

== ENCOUNTER 2025-06-10 09:20 | Day surgery (SDC) | payer MEDICARE, SELFPAY ==
--- NOTE | 2025-06-07 11:28 | EXP.HP ---
History of Present Illness *Admission Date: 06/10/25 *History of present illness: Mrs. Stallings is a 65-year-old female who is here for screening colonoscopy. The examination is deemed medically necessary for screening colonoscopy. The patient has been seen, interviewed and examined prior to the procedure by both myself and the anesthesia provider. [facility] Disclaimer: The information contained in this section may have been updated after the patient was seen, as this information can be updated by other users. Medical History Hypertension Encounter for immunization Gangrenous appendicitis Arthritis Hyperlipidemia Surgical History History of appendectomy H/O: hysterectomy Family History Father Colon cancer Social History Smoking Status: Current every day smoker tobacco type: cigarettes packs per day: 1 second hand exposure: Yes alcohol intake: never substance use type: denies use current occupational status: retired Travel in the last 8 weeks?: None household members: spouse and children housing: house Have you lived/traveled outside US in past 30 days?: No Contact w/someone who lives/traveled outside US past 30 days?: No Exposure to someone with infectious disease in past 14 days?: No Do you have a fever (greater than 100.4 F or 38 C)?: No Have you tested positive for COVID-19?: No Exposed to someone with COVID-19 in past 14 days?: No Do you have a sore throat?: No Do you have a cough?: No Do you have any weakness?: No Are you experiencing any nausea/vomitting?: No Do you have any diarrhea?: No Are you experiencing any unusual bleeding?: No Do you have any muscle aches/pain?: No Do you have any abdominal pain?: No Are you experiencing loss of taste or smell?: No Other Medical History Have you received the Flu Vaccine for this season: No Have you received the Pneumonia Vaccine: No Review of Systems Review of Systems Review of systems (narrative): Negative *Cardiovascular Comments: Negative *Gastrointestinal Comments: Negative *Genitourinary Comments: Negative *Musculoskeletal Comments: Negative *Neurologic Comments: Negative Meds Home Medications and Allergies Home Medications ?Medication ?Instructions ?Recorded ?Confirmed ?Type atorvastatin 20 mg tablet 20 mg PO HS #90 tabs 03/06/25 06/10/25 Rx losartan 50 mg tablet 50 mg PO ONCE #90 tabs 05/08/25 06/10/25 Rx sodium,potassium,mag sulfates 17.5 See Rx Instructions PO .COMPLEX 05/27/25 06/10/25 Rx gram-3.13 gram-1.6 gram oral soln #354 mL (Suprep Bowel Prep Kit) New Prescriptions to Start Prescriptions: Allergies Allergy/AdvReac Type Severity Reaction Status Date / Time No Known Allergies Allergy Verified 06/09/25 14:37 Exam *Routine HEENT Exam Head: Present normocephalic Eye: Present EOMI and PERRL ENT: Present mucous membranes moist *Routine Neck Exam Neck: Present supple *Routine Respiratory Exam Respiratory: Present CTA bilaterally *Routine Cardiovascular Exam Cardiovascular: Present RRR *Routine Abdominal Exam Abdominal: Present soft and normoactive bowel sounds; Absent tenderness *Routine Rectal Exam Rectal:: deferred *Routine Genitalia Exam Genitalia:: deferred *Routine Extremities Exam Extremities: Absent cyanosis, clubbing or edema *Routine Skin Exam Skin: Present warm; Absent rash *Routine Neurological Exam Neurological: Present alert and oriented X3 Assessment and Plan *Assessment and plan (1) Encounter for screening for malignant neoplasm of colon: Status: Acute Category: Medical Code(s): Z12.11 - Encounter for screening for malignant neoplasm of colon Plan A/P: 1. Screening for colon cancer is the preprocedural diagnosis. The patient will be anesthetized/sedated using MAC sedation. The patient has been seen and examined. Cardiac and lung assessment prior to the examination is stable. Proceed with planned screening colonoscopy.
[2025-06-09 14:40] VITALS: BMI 42.5
--- NOTE | 2025-06-10 07:01 | P.PCN_ITS ---
[facility] Procedure Note Date: 06/10/25 Time: 11:41 Procedure Note:: Colonoscopy Procedure Report: Colonoscopy with cold snare polypectomy Endoscopist: Lee Singh II, MD Referring physician: Joon Sandy MD Date of Procedure: June 10, 2025 Equipment: Olympus [id number] adult colonoscope Sedation: MAC sedation Indication: Mrs. Stallings is a 65-year-old female who is here for screening colonoscopy. The patient's last colonoscopy was 20 years ago (Mike Moctezuma MD). The patient reports no abdominal pain, weight loss, change in her bowel habits or rectal bleeding. She does state that her father had colon cancer around the age of 70. The examination is deemed medically necessary for screening colonoscopy. Procedure: Prior to the procedure, a history and physical exam was performed, and patient's medications and allergies were reviewed. The risks, benefits and alternatives of the sedation and procedure were discussed with the patient. All questions were answered and informed consent was obtained. The patient was brought to the procedure room. Patient identification and proposed procedure were verified by the physician and the nurse. The patient was placed in a left lateral decubitus position and the scope was passed under direct vision. Throughout the pr ocedure, the patient's blood pressure, pulse, and oxygen saturations were monitored continuously. The colonoscopy was accomplished without difficulty. The patient tolerated the procedure well. Findings: On digital rectal examination there was normal rectal tone. There were no external hemorrhoids. The colonoscope was introduced through the anal canal to the rectum and advanced to the cecum. The ileocecal valve and appendiceal orifice were identified. The scope was advanced a short distance into the ileum which appeared grossly normal. The scope was then withdrawn into the colon. The cecum, ascending and transverse colon and mucosa were grossly normal. There were scattered diverticuli throughout the descending and sigmoid colon (LEFT colon). There was a single 4 mm polyp in the sigmoid colon removed via cold snare polypectomy. The rectum itself was normal. Upon retroflexion within the rectum there were grade 1-2 internal hemorrhoids. There was some fibrosis at the pectinate line from prior hemorrhoid procedure. The preparation was excellent throughout with Carbon Preparation Score of 9. The cecal time was 12 minutes. Impression: 1. Diminutive sigmoid polyp 2. Left-sided diverticulosis 3. Grade 1-2 internal hemorrhoids with fibrosis at pectinate line from prior hemorrhoid procedure Plan: I will follow-up the polyp histology and recommend repeat screening/surveillance colonoscopy again in 7 to 10 years. Those persons that constitute having a stronger family history of colorectal cancer are those with a first-degree relative (parent, sibling, or child) diagnosed with colon cancer when they were younger than 50, or if more than one first-degree relative is affected. It is in these persons, that we recommend surveillance colonoscopy every 5 years. Persons that have a first-degree family member greater than 60 years of age at the time of their diagnosis are not deemed to be at greater risk because most colon cancers are sporadic (environmental and other factors) and are not hereditary. Only about 5 to 10 percent of colon cancer is hereditary. I would encourage psyllium fiber supplementation on a maintenance basis.
[2025-06-10 10:29] VITALS: BP 164/84; PULSE 77; RESP 18; TEMP 36.6; O2SAT 96; BMI 42.5
--- NOTE | 2025-06-10 11:34 | EXP.ANES.CKL ---
[facility] Disclaimer: The information contained in this section may have been updated after the patient was seen, as this information can be updated by other users. Medical History Hypertension Encounter for immunization Gangrenous appendicitis Arthritis Hyperlipidemia Surgical History History of appendectomy H/O: hysterectomy Family History Father Colon cancer Social History Smoking Status: Current every day smoker tobacco type: cigarettes packs per day: 1 second hand exposure: Yes alcohol intake: never substance use type: denies use current occupational status: retired Travel in the last 8 weeks?: None household members: spouse and children housing: house Have you lived/traveled outside US in past 30 days?: No Contact w/someone who lives/traveled outside US past 30 days?: No Exposure to someone with infectious disease in past 14 days?: No Do you have a fever (greater than 100.4 F or 38 C)?: No Have you tested positive for COVID-19?: No Exposed to someone with COVID-19 in past 14 days?: No Do you have a sore throat?: No Do you have a cough?: No Do you have any weakness?: No Are you experiencing any nausea/vomitting?: No Do you have any diarrhea?: No Are you experiencing any unusual bleeding?: No Do you have any muscle aches/pain?: No Do you have any abdominal pain?: No Are you experiencing loss of taste or smell?: No [facility] Anesthesia Checklist Patient Identification Patient Identification: Arm Band and Verbal (Name & ) Structural Data Admitted From: Home Planned Operative Procedure/s: colonoscopy Consent for Planned Operative Procedure(s) Verified: Yes Verified Documents: Surgical Consent NPO Status Verified Time NPO: 00:00 Additional verifications Anesthesia Reactions: No Hx Blood Transfusions: No Blood Transfusion Reaction: No Airway Assessment Mallampati Score:: Class II C-Spine Mobility Assessed: Yes TMJ Mobility Assessed: Yes Dentition: Good Dentition Neurological Assessment Level of Consciousness: Awake, Alert and Appropriate Hx Seizures: No Numbness or tingling in extremities: No Anesthesia Plan Anesthesia Risk discussed: Yes Anesthesia Plan: Verified ASA Class: II Anesthesia Type: MAC
[2025-06-10 11:44] VITALS: BP 106/58; PULSE 81; RESP 17; TEMP 36.4; O2SAT 93
[2025-06-10 11:54] VITALS: BP 116/70; PULSE 74; RESP 17; TEMP 36.4; O2SAT 98
[2025-06-10 12:04] VITALS: BP 138/65; PULSE 71; RESP 17; TEMP 36.4; O2SAT 98
[2025-06-10 12:14] VITALS: BP 143/74; PULSE 68; RESP 18; TEMP 36.4; O2SAT 98
== END 2025-06-10 12:30 | disposition home or self-care (01) ==
PROVIDERS: PCP Internal Medicine; Visit Provider Internal Medicine Gastroenterology
PROC: 0DJD8ZZ Inspection of Lower Intestinal Tract, Via Natural or Artificial Opening Endoscopic (ICD-10-PCS; CPT 45378; principal; 2025-06-10 11:00)
DX: Z12.11 Encounter for screening for malignant neoplasm of colon (principal); D12.5 Benign neoplasm of sigmoid colon; K57.30 Diverticulosis of large intestine without perforation or abscess without bleeding; K64.1 Second degree hemorrhoids; Z80.0 Family history of malignant neoplasm of digestive organs
CPT/HCPCS: 45385; J2003; J2704

== ENCOUNTER 2025-07-09 08:55 | Outpatient (CLI) | payer MEDICARE, SELFPAY ==
[2025-07-09 14:19] LABS: Albumin Level 3.9 g/dl (3.5-5.0); Chloride 99 mmol/L (98-107); Potassium 5.4 mmoL/L (3.5-5.1); Sodium 139 mmol/L (136-145)
[2025-07-09 14:21] LABS: Alanine Aminotransferase 98 U/L (12-78); Anion Gap 13.4 mEq/L (5-15); Aspartate Amino Transferase 127 U/L (14-36); Blood Urea Nitrogen 14 mg/dl (7-17); Carbon Dioxide 32 mmol/L (22.0-30.0); Creatinine,Serum 1.00 mg/dl (0.52-1.04); Estimated Glomerular Filt Rate 55 ml/min (>60); GFR (African American) 67 ML/MIN (>60)
[2025-07-09 14:22] LABS: Albumin/Globulin Ratio 0.9 (1.1-1.8); Alkaline Phosphatase 132 U/L (38-126); Bilirubin,Total 0.6 mg/dl (0.2-1.3); Calcium 9.3 mg/dl (8.4-10.2); Cholesterol 145 mg/dl (140-200); Globulin 4.5 g/dL (1.3-3.2); Glucose 92 mg/dl (74-100); HDL Cholesterol 59 mg/dl (40-60); Total Protein,Serum 8.4 g/dl (6.3-8.2); Triglycerides 98 mg/dl (30-150)
== END 2025-07-09 23:59 | disposition home or self-care (01) ==
LOC: LAB.DROPOF 07-10 14:17
PROVIDERS: PCP Internal Medicine; Visit Provider Internal Medicine
DX: E78.00 Pure hypercholesterolemia, unspecified (principal); I10 Essential (primary) hypertension; E66.813 Obesity, class 3; M17.12 Unilateral primary osteoarthritis, left knee; M17.11 Unilateral primary osteoarthritis, right knee
CPT/HCPCS: 80053; 80061